=== PATIENT | male | born 1975 | race Caucasian/White ===

== ENCOUNTER 2024-06-04 17:43 | Inpatient (IN) | payer OTHER, SELFPAY ==
[2024-06-04] VITALS (7 sets, daily range): BP systolic 136–172; BP diastolic 78–98; PULSE 67–90; RESP 14–18; TEMP 36.3–36.5; O2SAT 97–98; BMI 30.4
--- NOTE | ~2024-06-04 | CT_ITS ---
EXAMINATION: CTA chest abdomen pelvis DATE: 06/04/2024 20:30 INDICATION: Rule out aortic dissection TECHNIQUE: Computed tomography angiography (CTA) of the chest was performed with 100 mL Omnipaque-350 intravenous contrast timed to evaluate the pulmonary arteries. Coronal maximum intensity projection 3D-reconstructions were created by the technologist. Automated exposure control and iterative reconst ruction technique were employed. Exam dose: 929.74 mGy-cm total exam DLP. COMPARISON: None. FINDINGS: The lungs are clear of infiltrate or consolidation. There is no thoracic or abdominal aortic aneurysm or dissection. No hilar or mediastinal mass lesion or lymphadenopathy. Normal heart size. No pericardial or pleural effusion. No hepatic, splenic, pancreatic, adrenal or renal space-occupying mass lesion. The gallbladder is unremarkable. No bile duct or pancreatic duct dilatation. No intraperitoneal or retroperitoneal or pelvic mass lesion or adenopathy or ascites. There is mild prostate enlargement. The urinary bladder is distended, without wall thickening or appa rent intraluminal mass lesion. No bowel obstruction or intraperitoneal free air. Normal appendix No bowel obstruction or intraperitoneal free air. Small bilateral fat-containing inguinal hernias. Small fat-containing umbilical hernia. Included skeletal structures are unremarkable. IMPRESSION: No thoracic or abdominal aortic aneurysm Reviewed, dictated and finalized at [facility]. Reviewed, dictated and finalized at location [facility]. NESS MACHINE OPERATOR
--- NOTE | ~2024-06-04 | XR_ITS ---
XR chest 2V DATE: 06/04/2024 18:29 INDICATION: Chest pain TECHNIQUE: AP and lateral views COMPARISON: None FINDINGS: Heart size appears within normal range. No hilar or mediastinal enlargement. No pulmonary infiltrate or consolidation, pleural effusion or pulmonary vascular congestion or pneumo thorax is detected. IMPRESSION: No active cardiopulmonary disease Reviewed, dictated and finalized at location [facility]. INAL JUDGE
--- NOTE | 2024-06-04 17:50 | ECG_ITS ---
Test Date: 2024-06-04 17:55:52 Measurements Intervals [place] Rate: 93 P: 34 [place]: 168 QRS: 19 QRSD: 94 T: 31 QT: 343 QTc: 427 Interpretive Statements SINUS RHYTHM POSSIBLE LEFT ATRIAL ENLARGEMENT INCOMPLETE RIGHT BUNDLE BRANCH BLOCK BASELINE ARTIFACT- I, III, AVR, AVL, AVF, V3, V6 BORDERLINE ECG No previous ECG available for comparison Electronically Signed On 06-04-2024 18:47:36 FOUNDRY TECHNICIAN by Isidoro Tracy D.O.
[2024-06-04 18:15] LABS: Basophils Absolute Auto 0.1 K/mm3 (0.0-0.1); Basophils Percent Auto 0.8 % (0.2-1.2); Eosinophils Absolute Auto 0.2 K/mm3 (0-0.3); Eosinophils Percent Auto 1.2 % (0-4.4); Hematocrit 49.7 % (42.0-52.0); Hemoglobin 17.6 g/dL (14.0-18.0); Immature Granulocyte Absolute 0.09 K/mm3 (0.00-0.031); Immature Granulocyte Percent A 0.6 % (0-0.5); Lymphocytes Absolute Auto 3.14 K/mm3 (0.9-3.2); Lymphocytes Percent Auto 20.1 % (18.3-44.2); Mean Corpuscular HGB Conc 35.4 g/dl (32-36); Mean Corpuscular Hemoglobin 31.7 pg (26-34); Mean Corpuscular Volume 89.4 fl (80-100); Mean Platelet Volume 9.3 fl (7.4-10.4); Monocytes Absolute Auto 1.3 K/mm3 (0.1-0.6); Monocytes Percent Auto 8.2 % (2.6-8.5); Neutrophils Absolute Auto 10.8 K/mm3 (1.3-6.7); Neutrophils Percent Auto 69.1 % (45.5-73.1); Platelet Count Result 341 k/mm3 (150-375); Red Blood Count 5.56 M/mm3 (4.6-6.20); Red Cell Distribution Width 12.8 % (11.5-14.5); White Blood Count 15.7 K/mm3 (4.5-10.0)
[2024-06-04 18:26] LABS: Alanine Aminotransferase 54 U/L (6-50); Albumin Level 4.8 g/dL (3.5-5.1); Alkaline Phosphatase 77 U/L (38-126); Anion Gap 12 mmol/L (4-12); Aspartate Amino Transferase 39 U/L (17-59); Bilirubin,Total 0.7 mg/dL (0.2-1.3); Blood Urea Nitrogen 14 mg/dL (9-20); Calcium 9.1 mg/dL (8.4-10.2); Carbon Dioxide 24 mmol/L (22-30); Chloride 100 mmol/L (98-107); Estimated Glomerular Filt Rate > 60; Glucose 136 mg/dL (65-110); INR 0.9; Lipase 73 U/L (23-300); Potassium 3.4 mmol/L (3.4-5.0); Prothrombin Time 12.6 Seconds (11.1-14.7); Sodium 136 mmol/L (137-145)
[2024-06-04 18:27] LABS: Partial Thromboplastin Time 27.7 Seconds (22.3-36.8)
[2024-06-04 18:41] LABS: Troponin I 0.129 ng/mL (0.000-0.034)
--- NOTE | 2024-06-04 19:16 | PC.NURSE ---
family member reports that patient passed out, RN went in with patient and patient is neurologically intact at this time.
[2024-06-04] MEDS: LACTATED RINGERS 1,000 ML 999 ML IV CONT (19:30)
[2024-06-04] MEDS: HYDROmorphone HCL INJ (*CRX) 1 MG/ML SYR IV PUSH (19:31)
[2024-06-04] MEDS: LORazepam INJ (*CRX) 2 MG/ML VIAL 0.5 MG IV PUSH (19:32)
--- NOTE | 2024-06-04 19:41 | ED_ITS ---
HPI - Chest Pain General Chief Complaint: Chest Pain Stated Complaint: cp Time Seen by Provider: 06/04/24 19:01 History of Present Illness HPI narrative: 49-year-old male with no pertinent past medical history presenting to the emergency department sudden-onset chest pain on the right side of his chest radiating towards His neck and now on the right side of his body. He states he has had are off pain like this over this past week but only lasting several minutes and resolving spontaneously. EMS was called to scene he was provided 324 mg of p.o. aspirin. He has had persistent pain since arrival. Endorses no shortness of breath, nausea, vomiting, back pain, abdominal pain, weakness but does endorse neuropathy in both his arms and legs. States he feels is also having concomitant panic attack. Does take Effexor for his anxiety. No other medications, no cardiac medications. Does not see a ballistics professor and does not endorse any cardiac history. no history of DVT or PE, no long travel, no recent illnesses or injuries. Related Data Home Medications Medication Instructions Recorded Confirmed venlafaxine 150 mg 300 mg PO DAILY 07/31/19 06/04/24 capsule,extended release 24 hr anastrozole 1 mg tablet 1 mg PO WEEKLY 06/04/24 06/04/24 aspirin 81 mg tablet 81 mg PO DAILY 06/04/24 06/04/24 cholecalciferol (vitamin D3) 125 125 mcg PO DAILY 06/04/24 06/04/24 mcg (5,000 unit) capsule vitamin B complex 1 tablet PO DAILY 06/04/24 06/04/24 Allergies Allergy/AdvReac Type Severity Reaction Status Date / Time No Known Allergies Allergy Verified 06/04/24 21:55 Review of Systems Review of Systems: As reviewed above in HPI [facility] Past Medical History Medical History (Updated 06/05/24 @ 08:08 by Hans Zarco MD) Cyst of brain Depression with anxiety Headache, migraine Insomnia Sexual dysfunction Surgical History Surgical History History of skin surgery radha removed chest area Family History Family History (Updated 06/04/24 @ 23:11 by Patricia Sheth RN) Mother Aneurysm Fibromyalgia Migraine Other Diabetes mellitus Family history of coronary artery disease Family history of malignant neoplasm Heart disease Hypertension Social History Social History Smoking packs per day: 0.5 Smoking cigarettes per day: 10.0 Years smoked: 20 Smoking pack-years: 10.00 Smoking status: Current every day smoker Alcohol intake: current Drinks per week: 42 Substance use type: does not use Do You Feel Safe in your Home?: Yes Lack of Transportation: No Lack of Food: Never True Current Housing: I Have Housing Concerned About Future Housing: No Difficulty Paying Gas/Electric Bills: No Difficulty Paying for Meds: No Currently Unemployed: No Education: Trade/Vocational Certificate Difficulty w/ Childcare or Family Care: No Spiritual care concerns: No Exam 2 Narrative: GENERAL: very uncomfortable appearing in acute distress, able answer my questions in full sentences, diaphoretic HEAD: [Normocephalic, atraumatic.] EYES: [PERRLA and EOMI.] ENT: Nares clear, no rhinorrhea or epistaxis. Mucous membranes moist. NECK: Supple. CHEST: [Clear to auscultation. No respiratory distress.] HEART: [Regular rate and rhythm]. No murmur heard. [Normal peripheral pulses.] ABDOMEN: [Soft, nondistended], [nontender], [No rigidity or guarding] EXTREMITIES: Normal range of motion. [No edema.] SKIN: Warm, dry, no rash. NEURO: [No focal deficits]. Alert and oriented [x3.] PSYCH: [Normal mood and affect.] Course Vital Signs Vital signs: Vital Signs Temperature 36.5 C 06/04/24 17:55 Pulse Rate 90 06/04/24 17:55 Respiratory Rate 14 06/04/24 17:55 Blood Pressure 172/98 H 06/04/24 17:55 Pulse Oximetry 98 06/04/24 17:55 Oxygen Delivery Room Air 06/04/24 17:55 Temperature 36.8 C 06/05/24 06:31 Pulse Rate 96 06/05/24 06:31 Respiratory Rate 18 06/05/24 06:31 Blood Pressure 159/83 H 06/05/24 06:31 Pulse Oximetry 99 06/05/24 06:31 Oxygen Delivery Room Air 06/04/24 17:55 MDM - Chest Pain MDM Narrative Medical decision making narrative: 49-year-old male presenting with right-sided chest pain radiating down the right side of his body. Started 1 hour prior to arrival to the emergency department. He is hypertensive in the 170s but has no history of hypertension. Is very uncomfortable appearing, diaphoretic and acute distress. He was provided aspirin in route by EMS without any relief of his symptoms. No shortness of breath, nausea, vomiting, headache, back pain, abdominal pain. He has no cardiac history, no risk factors for VTE or pulmonary embolism. No risk factors for pneumothorax or lung pathology such as COPD or asthma. Patient received workup prior to my initial evaluation the patient did have an EKG that shows a partial right bundle branch block but no STEMI. He did have a initial elevated troponin. Patient was provided Dilaudid and small dose of Ativan for anxiety as well as his significant amounts of pain. Cardiac workup was ordered including serial troponin, serial EKGs, chest x-ray as well as a CT angiography of his chest abdomen pelvis given degree of pain the patient is and with his minimal history raise suspicion for possible cardiac versus aortic pathology. CT angiography was obtained and I independently reviewed the images I do not appreciate any kind of dissection or aneurysmal formation. No apparent intrathoracic process to explain patient's chest pain aside from his likely source being cardiac in origin. Read by radiology shows no thoracic or abdo jose l aortic aneurysms or dissections, no abdominal process that would be consistent with patient's presentation, gallbladder is unremarkable, normal appendix, no bowel obstruction, no hernias. Patient was re-evaluated frequently and still had persistent pain. He was given initial round of Dilaudid which helped slightly and was given additional morphine at this time for longer-acting relief without any improvement. He was thus provided additional dilaudid with again some mild relief but still describing significant pain this chest. His initial troponin was elevated to 0.129 and a repeat that was significant elevated 1.960. Repeat EKGs were obtained which again do not demonstrate any kind of STEMI and very nonspecific ST segments without any appreciable depressions or inversions. I discussed the case with the hospitalist Dr. Salinas for admission purposes. Given the patient's elevated troponins will decided on getting the intensive care unit involved and Interventional Cardiology given his persistent chest pain and elevated troponin without EKG evidence of an acute occlusive event with potential for need to have urgent/emergent cardiac cath. I had a discussion with the on-call beater out leveling machine Dr. Caceres. We would over patient's imaging findings, rising troponins and active chest pain without any ECG evidence of an acute ischemic event is definitive. Recomm endations were to initiate and nitroglycerin infusion for the chest pain and to keep the systolic blood pressure 110. This was initiated and titrated by nursing staff at bedside. Patient had some improvement in his pain after Dilaudid and nitroglycerin infusions. After I discussed the rapidly rising troponins an ongoing chest discomfort with the ballistics professor decision was made to plan for catheterization procedure tomorrow morning unless he has persistent pain throughout the evening that is uncontrolled or any new occlusive event changes on his EKG. Discussions were had with the on-call stitch bonding machine drawer in Dr. Darden and after realizing the plan of care going forward with intact rather cardiology's plan of catheterization either tonight or tomorrow and the ongoing ischemic type chest pain that the patient is experiencing he was accepted to the ICU in accordance with plan of care of both the stitch bonding machine drawer in and the hospitalist. Patient was admitted to the ER without further incident. Differential Diagnosis Differential diagnosis: Likely pneumothorax, stable angina, unstable angina pectoris, atypical chest pain, st elevation myocardial infarction, chest pain, biliary colic and other Medical Records Data Attestation: I reviewed the patient's medical records. Lab Data Attestation: I reviewed the patient's lab results. 06/05/24 05:36 06/04/24 18:02 Labs: Lab Results 06/04/24 06/04/24 Range/Units 18:02 21:48 WBC 15.7 H (4.5-10.0) K/mm3 RBC 5.56 (4.6-6.20) M/mm3 Hgb 17.6 (14.0-18.0) g/dL Hct 49.7 (42.0-52.0) % MCV 89.4 (80-100) fl MCH 31.7 (26-34) pg MCHC 35.4 (32-36) g/dl RDW 12.8 (11.5-14.5) % Plt Count 341 (150-375) k/mm3 MPV 9.3 (7.4-10.4) fl Immature Gran % (Auto) 0.6 H (0-0.5) % Neut % (Auto) 69.1 (45.5-73.1) % Lymph % (Auto) 20.1 (18.3-44.2) % [place] % (Auto) 8.2 (2.6-8.5) % Eos % (Auto) 1.2 (0-4.4) % Baso % (Auto) 0.8 (0.2-1.2) % Lymph # (Auto) 3.14 (0.9-3.2) K/mm3 [place] # (Auto) 1.3 H (0.1-0.6) K/mm3 Eos # (Auto) 0.2 (0-0.3) K/mm3 Baso # (Auto) 0.1 (0.0-0.1) K/mm3 Abs Immat Gran (auto) 0.09 H (0.00-0.031) K/mm3 Absolute Neuts (auto) 10.8 H (1.3-6.7) K/mm3 Absolute Nucleated RBC 0.000 (0.0-0.012) K/mm3 Nucleated RBC % 0.0 (0.0-0.2) % PT 12.6 (11.1-14.7) Seconds INR 0.9 APTT 27.7 (22.3-36.8) Seconds Sodium 136 L (137-145) mmol/L Potassium 3.4 (3.4-5.0) mmol/L Chloride 100 (98-107) mmol/L Carbon Dioxide 24 (22-30) mmol/L Anion Gap 12 (4-12) mmol/L BUN 14 (9-20) mg/dL Creatinine 1.00 (0.7-1.3) mg/dL Estim Creat Clear Calc Not Reportable Estimated GFR > 60 (59 - ) Glucose 136 H (65-110) mg/dL Calcium 9.1 (8.4-10.2) mg/dL Total Bilirubin 0.7 (0.2-1.3) mg/dL AST 39 (17-59) U/L ALT 54 H (6-50) U/L Alkaline Phosphatase 77 (38-126) U/L Troponin I 0.129 H* 1.960 H* D (0.000-0.034) ng/mL Total Protein 8.0 (6.3-8.2) g/dL Albumin 4.8 (3.5-5.1) g/dL Lipase 73 (23-300) U/L Imaging Data Attestation: I personally reviewed and interpreted this imaging study as follows : My impression: Impressions Chest X-Ray 06/04/24 18:59 IMPRESSION: No active cardiopulmonary disease Chest/Abdomen/Pelvis CTA 06/04/24 20:42 IMPRESSION: No thoracic or abdominal aortic aneurysm ECG Data EKG #1: Attestation: I personally reviewed and interpreted this ECG as follows: ECG completion date: 06/04/24 ECG completion time: 17:55 Prior ECG tracings: not available for review Interpretation: normal sinus rhythm with QRS of 94, QTC of 427 milliseconds, OR interval 160 milliseconds. There are no ST segment elevations, depressions, incomplete right bundle branch block is noted, T-wave flattening in lead 3. No previous EKG for comparison purposes. EKG Interpretation: normal rate, sinus rhythm, no ectopy, non-specific ST changes, normal QRS, RBBB and normal QT Critical Care Time Critical Care Time Critical Care Time: Yes Total Critical Care Time: 120 Discharge Plan Discharge Clinical Impression: Acute coronary syndrome with high troponin, NSTEMI (non-ST elevated myocardial infarction), Chest pain at rest Patient Disposition: Still a Patient Condition: Critical Time of Disposition: 23:00
--- NOTE | 2024-06-04 19:46 | PC.NURSE ---
let record show, EKG was taken by prior shift and shown to .
--- NOTE | 2024-06-04 20:47 | PC.NURSE ---
patient has called out for pain mediations at this time. RN informed that pain medication was just prescribed.
--- NOTE | 2024-06-04 20:52 | PC.NURSE ---
informed MD about patients pain and nausea. MD is placing order for Morphine and Zofran at this time.
--- NOTE | 2024-06-04 21:02 | ECG_ITS ---
Test Date: 2024-06-04 21:52:04 Measurements Intervals [place] Rate: 66 P: 31 [place]: 158 QRS: 34 QRSD: 105 T: 48 QT: 382 QTc: 402 Interpretive Statements SINUS RHYTHM WITH SINUS ARRHYTHMIA INCOMPLETE RIGHT BUNDLE BRANCH BLOCK BORDERLINE ECG Compared to ECG 06/04/2024 17:55:52 No significant changes Electronically Signed On 06-05-2024 06:10:43 GENERAL LEDGER BOOKKEEPER by Isidoro Tracy D.O.
--- NOTE | 2024-06-04 21:12 | PC.NURSE ---
per MD, patient to received 4mg of Morphine, and 4mg of Zofran via PIV. RN override medication with the okay of Dr. Parrish
[2024-06-04] MEDS: MORPHINE SULFATE (*CRX) 4 MG/ML INJ (21:16)
[2024-06-04] MEDS: ONDANSETRON INJ 4 MG/2 ML VIAL (21:17)
--- NOTE | 2024-06-04 21:41 | P.HP_ITS ---
H&P: HPI History of Present Illness Date/Time: 06/04/24 21:41 Chief Complaint: chest pain Narrative: This is a 49-year-old male with past medical history significant for tobacco dependence, pulmonary hypertension, depression, anxiety. patient presents to the emergency room due to sudden onset of right-sided chest pain with radiation to the jaw and shoulder ipsilateral, patient denies feeling lightheaded rates the pain a 10/10 in intensity only relieved by pain medication. patient was started on nitroglycerin drip. 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 in emergency room preliminary workup has been significant for troponin of 0.129 and 1.960 x2 patient was ruled out for acute pulmonary embolism with a negative CT angiogram of the chest. patient has been admitted for further evaluation management and treatment. XR chest 2V DATE: 06/04/2024 18:29 INDICATION: Chest pain TECHNIQUE: AP and lateral views COMPARISON: None FINDINGS: Heart size appears within normal range. No hilar or mediastinal enlargement. No pulmonary infiltrate or consolidation, pleural effusion or pulmonary vascular congestion or pneumothorax is detected. IMPRESSION: No active cardiopulmonary disease EXAMINATION: CTA chest abdomen pelvis DATE: 06/04/2024 20:30 INDICATION: Rule out aortic dissection TECHNIQUE: Computed tomography angiography (CTA) of the chest was performed with 100 mL Omnipaque-350 intravenous contrast timed to evaluate the pulmonary arteries. Coronal maximum intensity projection 3D-reconstructions were created by the technologist. Automated exposure control and iterative reconstruction technique were employed. Exam dose: 929.74 mGy-cm total exam DLP. COMPARISON: None. FINDINGS: The lungs are clear of infiltrate or consolidation. There is no thoracic or abdominal aortic aneurysm or dissection. No hilar or mediastinal mass lesion or lymphadenopathy. Normal heart size. No pericardial or pleural effusion. No hepatic, splenic, pancreatic, adrenal or renal space-occupying mass lesion. The gallbladder is unremarkable. No bile duct or pancreatic duct dilatation. No intraperitoneal or retroperitoneal or pelvic mass lesion or adenopathy or ascites. There is mild prostate enlargement. The urinary bladder is distended, without wall thickening or apparent intraluminal mass lesion. No bowel obstruction or intraperitoneal free air. Normal appendix No bowel obstruction or intraperitoneal free air. Small bilateral fat-containing inguinal hernias. Small fat-containing umbilical hernia. Included skeletal structures are unremarkable. IMPRESSION: No thoracic or abdominal aortic aneurysm Review of Systems Review of Systems: Chest pain Constitutional: Constitutional: Denies chills and Denies fever(s) Eyes: Eyes: Denies change in vision ENT: Denies dysphagia, Denies dizziness, Denies facial pain and Denies clare nophagia Cardiovascular: Cardiovascular: Reports chest pain, Reports chest pain at rest, Denies lightheadedness, Reports radiating jaw, neck or arm pain and Denies palpitations Respiratory: Respiratory: Denies cough Gastrointestinal: Gastrointestinal: Denies nausea and Denies vomiting Genitourinary: Genitourinary: Denies dysuria Musculoskeletal: Musculoskeletal: Denies myalgias Integumentary/Breasts: Skin/Breast: Denies rash Neurologic: Denies focal weakness and Denies Sensory deficit (Neuro) Psychiatric: Psychiatric: Reports no additional psychiatric complaints and Reports as per HPI Endocrine: Endocrine: Denies heat intolerance, Denies polyphagia, Denies polydipsia and Denies palpitations Hematologic/Lymphatic: Hematologic/Lymphatic: Reports no additional hematologic/lymphatic complaints and Reports as per HPI [facility] Past Medical History Medical History (Updated 06/05/24 @ 00:53 by Hugo Salinas MD) Cyst of brain Depression with anxiety Headache, migraine Insomnia Sexual dysfunction Surgical History Surgical History History of skin surgery radha removed chest area Family History Family History (Updated 06/04/24 @ 23:11 by Patricia Sheth RN) Mother Aneurysm Fibromyalgia Migraine Other Diabetes mellitus Family history of coronary artery disease Family history of malignant neoplasm Heart disease Hypertension Social History Social History Smoking packs per day: 0.5 Smoking cigarettes per day: 10.0 Years smoked: 20 Smoking pack-years: 10.00 Smoking status: Current every day smoker Alcohol intake: current Drinks per week: 42 Substance use type: does not use Do You Feel Safe in your Home?: Yes Lack of Transportation: No Lack of Food: Never True Current Housing: I Have Housing Concerned About Future Housing: No Difficulty Paying Gas/Electric Bills: No Difficulty Paying for Meds: No Currently Unemployed: No Education: Trade/Vocational Certificate Difficulty w/ Childcare or Family Care: No Spiritual care concerns: No Meds Home Medications and Allergies Home Medications Medication Instructions Recorded Confirmed Type venlafaxine 150 mg 300 mg PO DAILY 07/31/19 06/04/24 History capsule,extended release 24 hr sildenafil (pulm.hypertension) 20 60 - 80 mg PO Q36H PRN sexual 08/25/19 06/04/24 Rx mg tablet activity #60 tabs anastrozole 1 mg tablet 1 mg PO WEEKLY 06/04/24 06/04/24 History aspirin 81 mg tablet 81 mg PO DAILY 06/04/24 06/04/24 History cholecalciferol (vitamin D3) 125 125 mcg PO DAILY 06/04/24 06/04/24 History mcg (5,000 unit) capsule vitamin B complex 1 tablet PO DAILY 06/04/24 06/04/24 History Allergies Allergy/AdvReac Type Severity Reaction Status Date / Time No Known Allergies Allergy Verified 06/04/24 21:55 Vital Signs Vital Signs - 24 hr 06/04/24 17:55 06/04/24 18:43 06/04/24 19:19 Temperature 97.7 F 97.4 F L Pulse Rate 90 70 90 Respiratory Rate 14 18 Blood Pressure 172/98 H 161/78 H Pulse Oximetry 98 97 Oxygen Delivery Room Air Exam Narrative: patient is laying in a stretcher Const: General: comfortable, well developed, alert, awake, average body habitus and other ( in pain) Nutritional Appearance: average body habitus Orientation/consciousness: patient oriented x3 HENMT: Head: normal to inspection, normocephalic and atraumatic Ears: he aring grossly normal bilaterally Face/Nose/Sinus: normal facial exam Face and sinus: normal facial exam Eyes: General: appearance normal, both eyes and all related structures Pupils: Equal, round and reactive pupils present EOM: EOMs intact bilaterally Neck: Neck: full ROM, no lymphadenopathy and no JVD Thyroid: thyroid normal Lymphatic: no lymphadenopathy noted Resp: Effort & Inspection: normal respiratory effort and able to speak in complete sentences Auscultation: clear to auscultation bilaterally Cardio: Jugular venous distension: no JVD Rate: regular rate Rhythm: regular rhythm Heart sounds: S1 normal heart sound present and S2 normal heart sound present GI: GI Palp: Yes Soft to palpation and Yes No hepatosplenomegaly present : General: Yes deferred Skin: Rashes: no rashes Wounds: no wounds Neuro: General: patient oriented x3 and CN's II-XI intact bilaterally Cranial nerves: Yes CN's II-XII intact bilaterally and Yes Equal, round and reactive pupils present Cognition (Neuro): normal cognition Speech: normal speech Gait exam (Neuro): Normal gait present Motor exam (neuro): 5/5 motor strength present throughout Extrem: General: normal to inspection, full ROM, no joint enlargement and no pedal edema H&P: Results Labs Labs: Short CBC 06/04/24 Range/Units 18:02 WBC 15.7 H (4.5-10.0) K/mm3 Hgb 17.6 (14.0-18.0) g/dL Hct 49.7 (42.0-52.0) % Plt Count 341 (150-375) k/mm3 BMP 06/04/24 18:02 Sodium 136 L Potassium 3.4 Chloride 100 Carbon Dioxide 24 BUN 14 Creatinine 1.00 Glucose 136 H Calcium 9.1 Cardiac Enzymes 06/04/24 Range/Units 18:02 Troponin I 0.129 H* (0.000-0.034) ng/mL Liver Function 06/04/24 Range/Units 18:02 Total Bilirubin 0.7 (0.2-1.3) mg/dL AST 39 (17-59) U/L ALT 54 H (6-50) U/L Alkaline Phosphatase 77 (38-126) U/L Albumin 4.8 (3.5-5.1) g/dL Assessment and Plan Assessment and plan (1) NSTEMI (non-ST elevated myocardial infarction): Code(s): I21.4 - Non-ST elevation (NSTEMI) myocardial infarction Status: Acute Assessment and Plan: admit to ICU patient on heparin drip left heart catheterization in a.m. interventional cardiology consult (2) Chest pain at rest: Code(s): R07.9 - Chest pain, unspecified Status: Acute Assessment and Plan: currently on nitroglycerin drip (3) Tobacco dependence: Code(s): F17.200 - Nicotine dependence, unspecified, uncomplicated Status: Acute Assessment and Plan: nicotine patch as needed (4) Depression with anxiety: Code(s): F41.8 - Other specified anxiety disorders Status: Acute Assessment and Plan: patient is on venlafaxine follow-up in outpatient setting (5) Pulmonary hypertension: Code(s): I27.20 - Pulmonary hypertension, unspecified Status: Acute Assessment and Plan: patient takes Viagra last Viagra was Wednesday or of last week more than 72 hours
[2024-06-04] MEDS: HYDROmorphone HCL INJ (*CRX) 1 MG/ML SYR 0.5 MG IV PUSH (21:49)
[2024-06-04] MEDS: [UNRECOGNIZED DRUG - REMARK] 1 EACH XX (21:53)
--- NOTE | 2024-06-04 22:26 | PC.NURSE ---
pharmacy called and verified patients height. This RN asked patient about height he informed that he is 5t 9in.
[2024-06-04] MEDS: NITROGLYCERIN/D5W 200 MCG/ML 50 MG/250 ML BTL IV CONT (22:39)
[2024-06-04] MEDS: HEPARIN SOD/D5W 100 UNITS/ML 25,000 UNITS/250 ML BAG 10 UNITS IV CONT (22:53)
[2024-06-04 22:56] LABS: Basophils Absolute Auto 0.1 K/mm3 (0.0-0.1); Basophils Percent Auto 0.5 % (0.2-1.2); Eosinophils Absolute Auto 0.2 K/mm3 (0-0.3); Eosinophils Percent Auto 1.1 % (0-4.4); Hematocrit 45.2 % (42.0-52.0); Immature Granulocyte Absolute 0.05 K/mm3 (0.00-0.031); Immature Granulocyte Percent A 0.3 % (0-0.5); Lymphocytes Absolute Auto 2.06 K/mm3 (0.9-3.2); Lymphocytes Percent Auto 14.1 % (18.3-44.2); Mean Corpuscular HGB Conc 35.4 g/dl (32-36); Mean Corpuscular Hemoglobin 31.7 pg (26-34); Mean Corpuscular Volume 89.5 fl (80-100); Mean Platelet Volume 9.2 fl (7.4-10.4); Monocytes Absolute Auto 1.2 K/mm3 (0.1-0.6); Monocytes Percent Auto 8.2 % (2.6-8.5); Neutrophils Percent Auto 75.8 % (45.5-73.1); Platelet Count Result 281 k/mm3 (150-375); Red Blood Count 5.05 M/mm3 (4.6-6.20); Red Cell Distribution Width 12.7 % (11.5-14.5); White Blood Count 14.6 K/mm3 (4.5-10.0)
[2024-06-04 23:07] LABS: Prothrombin Time 13.9 Seconds (11.1-14.7)
[2024-06-04 23:08] LABS: Partial Thromboplastin Time 26.9 Seconds (22.3-36.8)
--- NOTE | 2024-06-04 23:09 | PC.NURSE ---
Report received from JOHN Golden.
--- NOTE | 2024-06-04 23:20 | PC.NURSE ---
Admission report to JOHN Morrison. Patient states that he takes a testosterone injection twice a week, but was unsure of the type of testosterone, thus it was not included in the external medication list.
--- NOTE | 2024-06-04 23:25 | ADMGEN ---
This patient, Mika Villeda, was admitted to Intensive Care Unit-9on 06/04/24 at 2324. Patient/family oriented to hospital policies and general routines including ID bracelet, bed and alarms, visiting hours, pain management, procedures, bathroom and other care routines, personal items, smoking policy, room service/diet, and visiting hours. Information on how to activate the Rapid Response Team has been discussed. Patient/Family are encouraged to report perceived risks to care and to ask questions if they do not understand what they are told or what they should do.
[2024-06-05] VITALS (34 sets, daily range): BP systolic 129–173; BP diastolic 76–125; PULSE 50–105; RESP 13–22; TEMP 36.7–36.9; O2SAT 95–100
[2024-06-05] MEDS: fentaNYL CITRATE INJ (*CRX) 100 MCG/2 ML VIAL 50 MCG IV PUSH ×2 (00:01→04:53)
--- NOTE | 2024-06-05 00:02 | ECG_ITS ---
Test Date: 2024-06-05 08:27:08 Measurements Intervals Muse Rate: 64 P: 34 ME: 152 QRS: 57 QRSD: 102 T: 29 QT: 396 QTc: 410 Interpretive Statements SINUS RHYTHM WITH SINUS ARRHYTHMIA INCOMPLETE RIGHT BUNDLE BRANCH BLOCK BORDERLINE ECG Electronically Signed On 06-05-2024 08:30:09 SPONGE DIVER by Isidoro Tracy D.O. Compared to ECG 06/04/2024 21:52:04 No significant changes
[2024-06-05] MEDS: ACETAMINOPHEN 325 MG TABLET 650 MG PO ×3 (01:21→11:35)
[2024-06-05 05:49] LABS: Basophils Absolute Auto 0.1 K/mm3 (0.0-0.1); Basophils Percent Auto 0.4 % (0.2-1.2); Eosinophils Absolute Auto 0.2 K/mm3 (0-0.3); Eosinophils Percent Auto 1.2 % (0-4.4); Hematocrit 45.5 % (42.0-52.0); Hemoglobin 15.5 g/dL (14.0-18.0); Immature Granulocyte Absolute 0.07 K/mm3 (0.00-0.031); Immature Granulocyte Percent A 0.4 % (0-0.5); Lymphocytes Absolute Auto 3.35 K/mm3 (0.9-3.2); Lymphocytes Percent Auto 20.9 % (18.3-44.2); Mean Corpuscular HGB Conc 34.1 g/dl (32-36); Mean Corpuscular Hemoglobin 30.8 pg (26-34); Mean Corpuscular Volume 90.5 fl (80-100); Mean Platelet Volume 9.2 fl (7.4-10.4); Monocytes Absolute Auto 1.3 K/mm3 (0.1-0.6); Neutrophils Absolute Auto 11.1 K/mm3 (1.3-6.7); Neutrophils Percent Auto 69.1 % (45.5-73.1); Platelet Count Result 273 k/mm3 (150-375); Red Blood Count 5.03 M/mm3 (4.6-6.20); Red Cell Distribution Width 12.7 % (11.5-14.5)
--- NOTE | 2024-06-05 06:00 | ECHO_ITS ---
Patient Info Name: Mika Villeda Age: 49 years : 1975 Gender: Male Ht: 69 in Wt: 204 lbs BSA: 2.15 m2 HR: 96 bpm BP: 159 / 83 mmHg Technical Quality: Fair Exam Date: 06/05/2024 9:33 AM Exam Location: Echo Lab Patient Status: Inpatient Admit Date: 06/04/2024 Staff Ordering Physician: Hans Zarco MD Spd Tech: Juve Angel RDCS Attending Provider: Hugo Salinas MD Referring Physician: Carolee LIRIANO; Exam Type: CA echo doppler color flow Study Info Indications - CHEST PAIN Complete two-dimensional, color flow and Doppler transthoracic echocardiogram is performed. Summary 1. Complete two-dimensional, color flow and Doppler transthoracic echocardiogram is performed. 2. The left ventricular systolic function is mildly reduced without LVEF of 45-50%. 3. The inferolateral wall is hypokinetic. 4. The right ventricular systolic function is normal. 5. No significant valvular disease. 6. Right atrial pressure measured to be 15 mm Hg. Left Ventricle The left ventricular size and systolic function is normal. The left ventricular ejection fraction is visually estimated to be 45-50%. The left ventricular wall is mildly thickened. The inferolateral wall is hypokinetic. Right Ventricle The right ventricular size and systolic function is normal. Left Atria The left atrium is normal in size. Right Atria The right atrium is normal in size. Aortic Valve The aortic valve is trileaflet and opens well. There is no aortic regurgitation. Pulmonic Valve The pulmonic valve is normal. There is no color Doppler evidence of pulmonic valve regurgitation. Mitral Valve The mitral valve is normal. There is no mitral regurgitation. Tricuspid Valve The tricuspid valve is normal. There is no tricuspid regurgitation. Pericardium/Pleural Pericardium is normal in appearance with no evidence for significant pericardial effusion. Inferior Vena Cava Dilated inferior vena cava with <50% collapse upon inspiration consistent with significantly elevated right atrial pressure, 15 mmHg. Aorta The 8 aortic root at the level of the sinus of Valsalva measures 2.9 cm in diameter. Left Ventricular Outflow Tract Name Value Normal LVOT 2D LVOT Diameter 2.1 cm LVOT Doppler LVOT Peak Gradient 3 mmHg LVOT Mean Gradient 2 mmHg LVOT VTI 16 cm LVOT VTI/AV VTI Ratio 0.7 LVOT Stroke Volume 57 ml LVOT CO 9.8 l/min LVOT CI 4.7 l/min/m2 Pulmonic Valve Name Value Normal RVOT Doppler RVOT Peak Gradient 3 mmHg PV Doppler PV Peak Gradient 6 mmHg Mitral Valve Name Value Normal MV Doppler MV Decel [place] 557 cm/s2 MV PHT 43 ms MV Area (PHT) 5.1 cm2 4.0-5.0 MV Diastolic Function MV E Peak Velocity 84 cm/s MV A Peak Velocity 71 cm/s MV E/A 1.2 MV Decel Time 150 ms MV Annular TDI MV E/e' (Septal) 9.3 <=8.0 MV E/e' (Lateral) 7.5 <=8.0 MV E/e' (Average) 8.4 Tricuspid Valve Name Value Normal Estimated PAP/RSVP RA Pressure 15 mmHg <=5 Aorta Name Value Normal Ascending Aorta Ao Root Diameter (MM) 3.5 cm Ao Root Diam Index (MM) 1.6 cm/m2 Aortic Valve Name Value Normal AV Doppler AV Peak Velocity 119 cm/s AV Peak Gradient 6 mmHg AV Mean Gradient 3 mmHg AV VTI 23 cm AV Area (Cont Eq VTI) 2.4 cm2 >=3.0 AV Area (Cont Eq [place]) 2.4 cm2 AV Regurgitation 2D LVOT Area 3.5 cm2 Ventricles Name Value Normal LV Dimensions 2D/MM IVS Diastolic Thickness (2D) 1.3 cm 0.6-1.0 LVID Diastole (2D) 4.5 cm 4.2-5.8 LVIW Diastolic Thickness (2D) 1.0 cm 0.6-1.0 LVID Systole (2D) 2.9 cm 2.5-4.0 LVOT Diameter 2.1 cm LV Mass (2D Cubed) 188.00 g 88.00-224.00 LV Mass Index (2D Cubed) 88 g/m2 49-115 Relative Wall Thickness (2D) 0.45 LV Fractional Shortening/Ejection Fraction 2D/MM LV Fractional Shortening (2D) 34 % 25-43 LV EF (2D Te[place]ol[place]) 64 % 52-72 LV Diastolic Volume (4C MOD) 142 ml LV EF (4C MOD) 46 % LV Diastolic Volume (2C MOD) 108 ml LV EF (2C MOD) 50 % LV Diastolic Volume (BP MOD) 125 ml 62-150 LV Diastolic Volume Index (BP MOD) 58 ml/m2 34-74 LV Systolic Volume (BP MOD) 64 ml 21-61 LV Systolic Volume Index (BP MOD) 30 ml/m2 11-31 LV EF (BP MOD) 49 % 52-72 LV Diastolic Length (4C) 8.9 cm LV Systolic Length (4C) 7.7 cm LV Stroke Volume (4C MOD) 65 ml Atria Name Value Normal LA Dimensions LA Dimension (MM) 5.6 cm 3.0-4.1 LA Volume (4C A-L) 41 ml LA Volume (BP A-L) 46 ml RA Dimensions RA Area (4C) 12.0 cm2 <=18.0 Report Signatures
[2024-06-05 06:01] LABS: Cholesterol 288 mg/dL (0-200); HDL Direct 39 mg/dL; Triglycerides 240 mg/dL (<150)
[2024-06-05 06:09] LABS: Partial Thromboplastin Time 32.1 Seconds (22.3-36.8)
[2024-06-05 06:12] LABS: LDL Cholesterol Direct 205 mg/dL
[2024-06-05] MEDS: HEPARIN SODIUM 5,000 UNITS/ML VIAL 4000 UNITS IV PUSH ×2 (06:48→13:34)
[2024-06-05 07:01] LABS: MRSA (PCR) NOT DETECTED (NOT DETECTE)
[2024-06-05] MEDS: ONDANSETRON INJ 4 MG/2 ML VIAL IV PUSH (08:09)
[2024-06-05 08:30] LABS: Alanine Aminotransferase 57 U/L (6-50); Alkaline Phosphatase 70 U/L (38-126); Anion Gap 7 mmol/L (4-12); Aspartate Amino Transferase 177 U/L (17-59); Bilirubin,Total 0.7 mg/dL (0.2-1.3); Blood Urea Nitrogen 11 mg/dL (9-20); Calcium 8.5 mg/dL (8.4-10.2); Carbon Dioxide 24 mmol/L (22-30); Chloride 104 mmol/L (98-107); Estimated CRCL calculation 127 ml/min; Estimated Glomerular Filt Rate > 60; Glucose 113 mg/dL (65-110); Potassium 3.9 mmol/L (3.4-5.0); Sodium 135 mmol/L (137-145)
[2024-06-05] MEDS: ASPIRIN 325 MG ENTERIC TABLET PO (08:39)
[2024-06-05] MEDS: MORPHINE SULFATE (*CRX) 2 MG/ML INJ 4 MG IV PUSH ×2 (08:39→12:46)
[2024-06-05] MEDS: METOPROLOL TARTRATE 25 MG TABLET PO ×2 (08:40→20:30)
[2024-06-05] MEDS: ATORVASTATIN 40 MG TABLET 80 MG PO (08:40)
[2024-06-05] MEDS: THIAMINE HCL 200 MG/2 ML VIAL 100 MG IV PUSH (08:40)
[2024-06-05] MEDS: FOLIC ACID 1 MG/0.2 ML INJ IV PUSH (08:44)
[2024-06-05] MEDS: LACTATED RINGERS 1,000 ML 100 ML IV CONT (08:51)
[2024-06-05] MEDS: PERFLUTREN LIPID MICROSPHERES 1.5 ML VIAL DILUTED TO 10 ML TOTAL VOLUME IV PUSH (09:30)
[2024-06-05 09:38] LABS: Hemoglobin A1C 5.5 % (<5.7)
--- NOTE | 2024-06-05 10:08 | WPDCNINT ---
Assessment and Plan Assessment and plan (1) NSTEMI (non-ST elevated myocardial infarction): Code(s): I21.4 - Non-ST elevation (NSTEMI) myocardial infarction Status: Acute Assessment and Plan: Patient presented with chest pain EKG showed no ST elevation he had elevated troponin which have now increased to 5.8 this more CTA negative for dissection or pulmonary embolism Cardiology has been consulted and aware patient Continue heparin drip and nitroglycerin drip. Titrate nitroglycerin drip to help with chest pain P.r.n. morphine Started aspirin beta-robert and Lipitor Echo ordered and pending Telemetry monitoring Sports Medicine Coordinator notified of patient's ongoing chest pain this morning I anticipate patient will be taken to cardiac catheterization lab today (2) Tobacco dependence: Code(s): F17.200 - Nicotine dependence, unspecified, uncomplicated Status: Acute Assessment and Plan: Patient was counseled and encouraged to quit smoking (3) Alcohol abuse: Code(s): F10.10 - Alcohol abuse, uncomplicated Status: Acute Assessment and Plan: Patient was counseled encouraged to either quit or decrease alcohol intake Monitor for withdrawal Thiamine and folic acid (4) Hyperlipidemia: Code(s): E78.5 - Hyperlipidemia, unspecified Status: Acute Assessment and Plan: Lipitor initiated (5) Nausea: Code(s): R11.0 - Nausea Status: Acute Assessment and Plan: P.r.n. Zofran Plan DVT prophylaxis -heparin infusion Stress ulcer prophylaxis - Nutrition - npo Code Status - Full Code I spoke to patient and his family at bedside and answered all questions explained him that he had had an [place] and current treatment plan. Total Critical Care Time - 32 minutes Due to a high probability of clinically significant, life threatening deterioration, the patient required my highest level of preparedness to intervene emergently and I personally spent this critical care time directly and personally managing the patient. This critical care time included obtaining a history; examining the patient; pulse oximetry; ordering and review of studies; arranging urgent treatment with development of a management plan; evaluation of patient's response to treatment; frequent reassessment; and discussions with other providers. It was exclusive of separately billable procedures and treating other patients and teaching time. Please see Assessment and Plan section and the rest of the note for further information on patient assessment and treatment Customer Service Attendant Consult Note Consult date: 06/05/24 Reason for consult: Non STEMI HPI: Mika Villeda is a 49 year old male with no sent significant known past medical history presented to ER last night with chief complaint of chest pain. Patient states that he had a similar chest pain few days ago which resolved quickly but last night started having chest pain on the right side of the chest which radiated to his right neck and right shoulder. Pain was sharp 7/10. No nausea vomiting shortness of breath dizziness lightheadedness loss of consciousness or palpitation. When he arrived in the ER patient was still having chest pain. Workup in the ED showed elevated troponin. CTA negative for PE or dissection. His EKG did not show any ST segment elevation. Cardiology consulted patient was started on heparin infusion. Patient was later also started on nitroglycerin infusion. Patient was admitted to ICU This morning when I saw the patient patient states that he still having chest pain although it is better than before. He is currently on heparin drip and nitroglycerin at 30 make he rates pain 4 to 5/10 but he also states that he is having headaches since the nitroglycerin and drip was started. He also complains of nausea. No vomiting. All other systems were reviewed and were negative Review of Systems Review of Systems: All systems reviewed & are unremarkable except as noted in HPI and below (HPI) PMFSH Past Medical History Medical History Cyst of brain Depression with anxiety Headache, migraine Insomnia Sexual dysfunction Surgical History Surgical History History of skin surgery radha removed chest area Family History Family History Mother Aneurysm Fibromyalgia Migraine Other Diabetes mellitus Family history of coronary artery disease Family history of malignant neoplasm Heart disease Hypertension Social History Social History Smoking packs per day: 0.5 Smoking cigarettes per day: 10.0 Years smoked: 20 Smoking pack-years: 10.00 Smoking status: Current every day smoker Alcohol intake: current Drinks per week: 42 Substance use type: does not use Do You Feel Safe in your Home?: Yes Lack of Transportation: No Lack of Food: Never True Current Housing: I Have Housing Concerned About Future Housing: No Difficulty Paying Gas/Electric Bills: No Difficulty Paying for Meds: No Currently Unemployed: No Education: Trade/Vocational Certificate Difficulty w/ Childcare or Family Care: No Spiritual care concerns: No Meds Home Medications and Allergies Home Medications Medication Instructions Recorded Confirmed Type venlafaxine 150 mg 300 mg PO DAILY 07/31/19 06/04/24 History capsule,extended release 24 hr sildenafil (pulm.hypertension) 20 60 - 80 mg PO Q36H PRN sexual 08/25/19 06/04/24 Rx mg tablet activity #60 tabs anastrozole 1 mg tablet 1 mg PO WEEKLY 06/04/24 06/04/24 History aspirin 81 mg tablet 81 mg PO DAILY 06/04/24 06/04/24 History cholecalciferol (vitamin D3) 125 125 mcg PO DAILY 06/04/24 06/04/24 History mcg (5,000 unit) capsule vitamin B complex 1 tablet PO DAILY 06/04/24 06/04/24 History Allergies Allergy/AdvReac Type Severity Reaction Status Date / Time No Known Allergies Allergy Verified 06/04/24 21:55 Vital Signs Vital Signs - 24 hr 06/04/24 17:55 06/04/24 18:43 06/04/24 19:19 Temperature 36.5 C 36.3 C L Pulse Rate 90 70 90 Respiratory Rate 14 18 Blood Pressure 172/98 H 161/78 H Pulse Oximetry 98 97 Oxygen Delivery Room Air Oxygen Flow Rate 06/04/24 22:39 06/04/24 23:24 06/04/24 23:30 Temperature Pulse Rate 67 74 72 Respiratory Rate Blood Pressure 139/87 Pulse Oximetry Oxygen Delivery Oxygen Flow Rate 06/04/24 23:49 06/05/24 00:07 06/05/24 00:00 Temperature 36.8 C Pulse Rate 74 68 71 Respiratory Rate 18 Blood Pressure 136/78 129/84 129/84 Pulse Oximetry 97 Oxygen Delivery Oxygen Flow Rate 06/05/24 00:00 06/05/24 00:15 06/05/24 01:15 Temperature Pulse Rate 71 80 59 L Respiratory Rate Blood Pressure 134/90 146/83 H Pulse Oximetry Oxygen Delivery Oxygen Flow Rate 06/05/24 04:05 06/05/24 02:00 06/05/24 04:00 Temperature 36.8 C Pulse Rate 66 62 76 Respiratory Rate 13 Blood Pressure 132/79 Pulse Oximetry 96 Oxygen Delivery Oxygen Flow Rate 06/05/24 06:31 06/05/24 02:00 06/05/24 04:00 Temperature 36.8 C Pulse Rate 96 62 64 Respiratory Rate 18 Blood Pressure 159/83 H 154/84 H 142/82 H Pulse Oximetry 99 Oxygen Delivery Oxygen Flow Rate 06/05/24 06:00 06/05/24 00:00 06/05/24 04:00 Temperature Pulse Rate 50 L Respiratory Rate Blood Pressure 149/91 H Pulse Oximetry 99 Oxygen Delivery Room Air Nasal Cannula Oxygen Flow Rate 4 06/05/24 06:00 06/05/24 08:40 06/05/24 08:00 Temperature Pulse Rate 96 75 56 L Respiratory Rate Blood Pressure 144/87 H Pulse Oximetry Oxygen Delivery Oxygen Flow Rate 06/05/24 08:50 Temperature Pulse Rate 77 Respiratory Rate Blood Pressure 155/98 H Pulse Oximetry Oxygen Delivery Oxygen Flow Rate Exam Narrative: General: Pt is alert awake and in NAD Lungs/Chest: Trachea central Clear BS B/L, No crackles or wheezing. Cardiac: RRR. Normal S1 S2. No murmurs Circulation: Pedal pulses are intact and symmetrical. Abdomen: Normal bowel sounds.. Soft. NT. ND. Extremities: No clubbing, cyanosis or edema. Warm : [place] in place Neurologic: Follows commands. Moves all 4 extremities PERRL Skin: No Rash Results Labs 06/05/24 05:36 06/05/24 05:36 Labs: Impressions Chest X-Ray 06/04/24 18:59 IMPRESSION: No active cardiopulmonary disease Chest/Abdomen/Pelvis CTA 06/04/24 20:42 IMPRESSION: No thoracic or abdominal aortic aneurysm Short CBC 06/04/24 06/04/24 06/05/24 Range/Units 18:02 22:51 05:36 WBC 15.7 H 14.6 H 16.0 H (4.5-10.0) K/mm3 Hgb 17.6 16.0 15.5 (14.0-18.0) g/dL Hct 49.7 45.2 45.5 (42.0-52.0) % Plt Count 341 281 273 (150-375) k/mm3 BMP 06/04/24 06/05/24 18:02 05:36 Sodium 136 L 135 L Potassium 3.4 3.9 Chloride 100 104 Carbon Dioxide 24 24 BUN 14 11 Creatinine 1.00 0.70 Glucose 136 H 113 H Calcium 9.1 8.5 Cardiac Enzymes 06/04/24 06/04/24 06/05/24 Range/Units 18:02 21:48 00:23 Troponin I 0.129 H* 1.960 H* D 5.810 H* D (0.000-0.034) ng/mL Liver Function 06/04/24 06/05/24 Range/Units 18:02 05:36 Total Bilirubin 0.7 0.7 (0.2-1.3) mg/dL AST 39 177 H (17-59) U/L ALT 54 H 57 H (6-50) U/L Alkaline Phosphatase 77 70 (38-126) U/L Albumin 4.8 4.0 (3.5-5.1) g/dL ECG Interpretation: EKG done this morning reviewed by me shows sinus rhythm with incomplete right bundle-branch block. No ST elevation. Hospitalist MIPS Advance Care Plan I have confirmed that the patient's Advanced Care Plan is present, code status is documented, or surrogate decision maker is listed in patient medical record.: Yes Medication Reconciliation I have utilized all available resources to obtain, update and review the patients current medications (includes all prescriptions, OTC, herbals, cannabis, and nutritional supplements).: Yes
--- NOTE | 2024-06-05 10:14 | IVDEFINITY ---
Prior to administration of IV Definity the patient was educated on the risks and benefits of the imaging enhancing agent including potential adverse side effects. The patient verbalized understanding. Allergies were verified. No exclusion criteria were identified and at least one of the following inclusion criteria were met: 1) physician request, 2) patient technically difficult to image (per the [place] [employer] guidelines of two or more segments not discernable within the apical view), or 3) questionable left ventricular function. ?
--- NOTE | 2024-06-05 10:39 | PM.CNCAR ---
Assessment and Plan Assessment and plan (1) NSTEMI (non-ST elevated myocardial infarction): Code(s): I21.4 - Non-ST elevation (NSTEMI) myocardial infarction Status: Acute Plan 49-year-old man with tobacco dependence and pulmonary hypertension initially presented to hospital with chest discomfort Non ST elevation DC -continue heparin drip and nitroglycerin drip -continue aspirin 81 mg, atorvastatin 80 mg every evening, and Lopressor 25 mg p.o. b.i.d. -given persistent chest discomfort, recommended urgent cardiac catheterization -follow up on transthoracic echocardiogram History of Present Illness History of Present Illness Consult date/time: 06/05/24 10:39 Requesting physician: Hugo Salinas MD Reason For Visit: Chest pain, NSTEMI Narrative: 49-year-old man with tobacco dependence and pulmonary hypertension initially presented to hospital with chest discomfort for with radiation to jaw shoulders. This has been ongoing for 4 hours prior to presentation to the emergency room. He was driving and for his friend was driving home from [place] and once he reached home he immediately came to the hospital. He has noted is chest discomfort over the past 4 months now that is not associated with exertion. He had 1 associated episode of syncopal episode. He denies any orthopnea or lower extremity swelling. Other than these chest discomfort and syncopal episodes, he is physically active. His chest pain did improve with nitroglycerin drip however this is limited due to headaches. Review of Systems Constitutional: Constitutional: Reports as per HPI Cardiovascular: Cardiovascular: Reports as per HPI Respiratory: Respiratory: Reports as per HPI [facility] Past Medical History Medical History Cyst of brain Depression with anxiety Headache, migraine Insomnia Sexual dysfunction Surgical History Surgical History History of skin surgery radha removed chest area Family History Family History Mother Aneurysm Fibromyalgia Migraine Other Diabetes mellitus Family history of coronary artery disease Family history of malignant neoplasm Heart disease Hypertension Social History Social History Smoking packs per day: 0.5 Smoking cigarettes per day: 10.0 Years smoked: 20 Smoking pack-years: 10.00 Smoking status: Current every day smoker Alcohol intake: current Drinks per week: 42 Substance use type: does not use Do You Feel Safe in your Home?: Yes Lack of Transportation: No Lack of Food: Never True Current Housing: I Have Housing Concerned About Future Housing: No Difficulty Paying Gas/Electric Bills: No Difficulty Paying for Meds: No Currently Unemployed: No Education: Trade/Vocational Certificate Difficulty w/ Childcare or Family Care: No Spiritual care concerns: No Meds Home Medications and Allergies Home Medications Medication Instructions Recorded Confirmed Type venlafaxine 150 mg 300 mg PO DAILY 07/31/19 06/04/24 History capsule,extended release 24 hr sildenafil (pulm.hypertension) 20 60 - 80 mg PO Q36H PRN sexual 08/25/19 06/04/24 Rx mg tablet activity #60 tabs anastrozole 1 mg tablet 1 mg PO WEEKLY 06/04/24 06/04/24 History aspirin 81 mg tablet 81 mg PO DAILY 06/04/24 06/04/24 History cholecalciferol (vitamin D3) 125 125 mcg PO DAILY 06/04/24 06/04/24 History mcg (5,000 unit) capsule vitamin B complex 1 tablet PO DAILY 06/04/24 06/04/24 History Allergies Allergy/AdvReac Type Severity Reaction Status Date / Time No Known Allergies Allergy Verified 06/04/24 21:55 Vital Signs Vital Signs - 24 hr 06/04/24 17:55 06/04/24 18:43 06/04/24 19:19 Temperature 36.5 C 36.3 C L Pulse Rate 90 70 90 Respiratory Rate 14 18 Blood Pressure 172/98 H 161/78 H Pulse Oximetry 98 97 Oxygen Delivery Room Air Oxygen Flow Rate 06/04/24 22:39 06/04/24 23:24 06/04/24 23:30 Temperature Pulse Rate 67 74 72 Respiratory Rate Blood Pressure 139/87 Pulse Oximetry Oxygen Delivery Oxygen Flow Rate 06/04/24 23:49 06/05/24 00:07 06/05/24 00:00 Temperature 36.8 C Pulse Rate 74 68 71 Respiratory Rate 18 Blood Pressure 136/78 129/84 129/84 Pulse Oximetry 97 Oxygen Delivery Oxygen Flow Rate 06/05/24 00:00 06/05/24 00:15 06/05/24 01:15 Temperature Pulse Rate 71 80 59 L Respiratory Rate Blood Pressure 134/90 146/83 H Pulse Oximetry Oxygen Delivery Oxygen Flow Rate 06/05/24 04:05 06/05/24 02:00 06/05/24 04:00 Temperature 36.8 C Pulse Rate 66 62 76 Respiratory Rate 13 Blood Pressure 132/79 Pulse Oximetry 96 Oxygen Delivery Oxygen Flow Rate 06/05/24 06:31 06/05/24 02:00 06/05/24 04:00 Temperature 36.8 C Pulse Rate 96 62 64 Respiratory Rate 18 Blood Pressure 159/83 H 154/84 H 142/82 H Pulse Oximetry 99 Oxygen Delivery Oxygen Flow Rate 06/05/24 06:00 06/05/24 00:00 06/05/24 04:00 Temperature Pulse Rate 50 L Respiratory Rate Blood Pressure 149/91 H Pulse Oximetry 99 Oxygen Delivery Room Air Nasal Cannula Oxygen Flow Rate 4 06/05/24 06:00 06/05/24 08:40 06/05/24 08:00 Temperature Pulse Rate 96 75 56 L Respiratory Rate Blood Pressure 144/87 H Pulse Oximetry Oxygen Delivery Oxygen Flow Rate 06/05/24 08:50 06/05/24 08:00 06/05/24 10:00 Temperature Pulse Rate 77 55 L 64 Respiratory Rate 17 Blood Pressure 155/98 H 144/87 H 139/81 Pulse Oximetry 98 Oxygen Delivery Oxygen Flow Rate 06/05/24 10:20 06/05/24 10:00 06/05/24 08:00 Temperature Pulse Rate 79 64 52 L Respiratory Rate 13 Blood Pressure 134/90 139/81 Pulse Oximetry 100 Oxygen Delivery Oxygen Flow Rate 06/05/24 08:00 06/05/24 10:00 Temperature Pulse Rate 64 Respiratory Rate Blood Pressure Pulse Oximetry 100 Oxygen Delivery Nasal Cannula Oxygen Flow Rate 4 Exam Const: General: uncomfortable HENMT: Mouth: Yes moist mucous membranes Eyes: EOM: EOMs intact bilaterally Neck: Neck: no JVD Resp: Auscultation: clear to auscultation bilaterally Cardio: Rate: regular rate Rhythm: regular rhythm GI: GI Palp: Yes Soft to palpation Neuro: Speech: normal speech Extrem: General: no edema and no pedal edema Results Labs and Meds 06/05/24 05:36 06/05/24 05:36 Lab results: Cardiac Enzymes 06/04/24 06/04/24 06/05/24 Range/Units 18:02 21:48 00:23 AST 39 (17-59) U/L Troponin I 0.129 H* 1.960 H* D 5.810 H* D (0.000-0.034) ng/mL 06/05/24 Range/Units 05:36 AST 177 H (17-59) U/L Troponin I (0.000-0.034) ng/mL Coagulation 06/04/24 06/04/24 06/05/24 Range/Units 18:02 22:51 05:36 PT 12.6 13.9 (11.1-14.7) Seconds APTT 27.7 26.9 32.1 (22.3-36.8) Seconds Lipids 06/05/24 Range/Units 05:36 Triglycerides 240 H (<150) mg/dL Cholesterol 288 H (0-200) mg/dL CBC 06/04/24 06/04/24 06/05/24 Range/Units 18:02 22:51 05:36 WBC 15.7 H 14.6 H 16.0 H (4.5-10.0) K/mm3 RBC 5.56 5.05 5.03 (4.6-6.20) M/mm3 Hgb 17.6 16.0 15.5 (14.0-18.0) g/dL Hct 49.7 45.2 45.5 (42.0-52.0) % Plt Count 341 281 273 (150-375) k/mm3 Lymph # (Auto) 3.14 2.06 3.35 H (0.9-3.2) K/mm3 [place] # (Auto) 1.3 H 1.2 H 1.3 H (0.1-0.6) K/mm3 Eos # (Auto) 0.2 0.2 0.2 (0-0.3) K/mm3 Baso # (Auto) 0.1 0.1 0.1 (0.0-0.1) K/mm3 Comprehensive Metabolic Panel 06/04/24 06/05/24 Range/Units 18:02 05:36 Sodium 136 L 135 L (137-145) mmol/L Potassium 3.4 3.9 (3.4-5.0) mmol/L Chloride 100 104 (98-107) mmol/L Carbon Dioxide 24 24 (22-30) mmol/L BUN 14 11 (9-20) mg/dL Creatinine 1.00 0.70 (0.7-1.3) mg/dL Glucose 136 H 113 H (65-110) mg/dL Calcium 9.1 8.5 (8.4-10.2) mg/dL AST 39 177 H (17-59) U/L ALT 54 H 57 H (6-50) U/L Alkaline Phosphatase 77 70 (38-126) U/L Total Protein 8.0 7.0 (6.3-8.2) g/dL Albumin 4.8 4.0 (3.5-5.1) g/dL Intake and Output 06/04/24 06/05/24 06/05/24 23:59 07:59 15:59 Intake Total 1007.5 127.2 41.3 Balance 1007.5 127.2 41.3 Intake: IV 1007.5 127.2 41.3 Heparin Sod/D5w 100 Units/ml 25 5.2 74.7 ,000 units In 250 ml @ 1,000 UNITS/HR 10 mls/hr IV CONT . Q24H [facility] Rx#:[id number] Lactated Ringers 1,000 ml @ 999 1000 mls/hr IV CONT .Q1H1M STA Rx#: [id number] Nitroglycerin/D5w 200 Mcg/ml 50 2.3 52.5 41.3 mg In 250 ml @ 30 MCG/MIN 9 mls/hr IV CONT .Q24H [facility] Rx#: [id number] Oral 0 Patient Weight 06/05/24 23:59 Weight 92.9 kg
[2024-06-05] MEDS: HYDROcodone/acetaminophen (*CRX) 5-325 MG TABLET 1 TAB PO ×2 (13:34→18:20)
--- NOTE | 2024-06-05 14:08 | PCCPR ---
Addendum entered by José Crain 06/05/24 14:10: Patient was unavailable to talk- headed to high density press laborer. Left flyer for Cardiac Rehab with nurse Original Note: visited patient bedside to give Cardiac Rehab information
--- NOTE | 2024-06-05 14:47 | PC.NURSE ---
pt to optical lab technician via bed and optical lab technician monitor; nitro drip sent with patient still infusing, heparin drip held and IV fluids held.
[2024-06-05 16:17] LABS: Activated Clotting Time 297 SEC (74-137)
--- NOTE | 2024-06-05 16:26 | P.SEDATION_ITS ---
Moderate Sedation Note-Pt Data Patient Data Allergies Allergy/AdvReac Type Severity Reaction Status Date / Time No Known Allergies Allergy Verified 06/04/24 21:55 Home Medications Medication Instructions Recorded Confirmed Type venlafaxine 150 mg 300 mg PO DAILY 07/31/19 06/04/24 History capsule,extended release 24 hr sildenafil (pulm.hypertension) 20 60 - 80 mg PO Q36H PRN sexual 08/25/19 06/04/24 Rx mg tablet activity #60 tabs anastrozole 1 mg tablet 1 mg PO WEEKLY 06/04/24 06/04/24 History aspirin 81 mg tablet 81 mg PO DAILY 06/04/24 06/04/24 History cholecalciferol (vitamin D3) 125 125 mcg PO DAILY 06/04/24 06/04/24 History mcg (5,000 unit) capsule vitamin B complex 1 tablet PO DAILY 06/04/24 06/04/24 History Current Medications: Active Medications Acetaminophen (Acetaminophen 325 Mg Tablet) 650 mg PO Q4H PRN PRN Reason: Mild Pain (1-3) or Fever Last Admin: 06/05/24 11:35 Dose: 650 mg Hydrocodone Bitart/Acetaminophen (Hydrocodone/Acetaminophen (*Crx) 5-325 Mg Tablet) 1 tab PO Q4H PRN PRN Reason: Pain Rated 4-6 Last Admin: 06/05/24 13:34 Dose: 1 tab Aspirin (Aspirin 325 Mg Enteric Tablet) 325 mg PO QAM [facility] Last Admin: 06/05/24 08:39 Dose: 325 mg Atorvastatin Calcium (Atorvastatin 40 Mg Tablet) 80 mg PO DAILY [facility] Last Admin: 06/05/24 08:40 Dose: 80 mg Folic Acid (Folic Acid 1 Mg/0.2 Ml Inj) 1 mg IV PUSH QAM [facility] Last Admin: 06/05/24 08:44 Dose: 1 mg Heparin Sodium (Porcine) (Heparin Sodium 5,000 Units/Ml Vial) 4,000 units IV PUSH PRN PRN PRN Reason: aPTT less than 55 seconds Last Admin: 06/05/24 13:34 Dose: 4,000 units Heparin Sodium (Porcine) (Heparin Sodium 5,000 Units/Ml Vial) 3,000 units IV PUSH PRN PRN PRN Reason: aPTT 55 - 70 seconds Heparin Sodium/Dextrose (Heparin Sodium/D5w 100 Units/Ml) 25,000 units in 250 mls @ 0 mls/hr IV CONT .Q0M MACIE; Protocol Last Titration: 06/05/24 14:48 Dose: 0 units/hr, 0 mls/hr Nitroglycerin/Dextrose (Nitroglycerin In 5% Dextrose 50 Mg) 50 mg in 250 mls @ 15 mls/hr IV CONT .[id number] MACIE; Protocol Last Titration: 06/05/24 14:00 Dose: 50 mcg/min, 15 mls/hr Lactated Ringer's (Lr - Lactated Ringers Iv) 1,000 mls @ 100 mls/hr IV CONT .Q10H [facility] Stop: 06/06/24 08:14 Last Infusion: 06/05/24 14:48 Dose: 0 mls/hr Metoprolol Tartrate (Metoprolol Tartrate 25 Mg Tablet) 25 mg PO Q12HR [facility]IE Last Admin: 06/05/24 08:40 Dose: 25 mg Morphine Sulfate (Morphine Sulfate (*Crx) 2 Mg/Ml Inj) 4 mg IV PUSH Q4H PRN PRN Reason: Pain Rated 7-10 Last Admin: 06/05/24 12:46 Dose: 4 mg Ondansetron HCl (Ondansetron Inj 4 Mg/2 Ml Vial) 4 mg IV PUSH Q4H PRN PRN Reason: Nausea Last Admin: 06/05/24 08:09 Dose: 4 mg Thiamine HCl (Thiamine Hcl 200 Mg/2 Ml Vial) 100 mg IV PUSH QAM [facility] Last Admin: 06/05/24 08:40 Dose: 100 mg Sedation/Anesthesia: No previous sedation/anesthesia problems (including family history). [facility] Past Medical History Medical History Cyst of brain Depression with anxiety Headache, migraine Insomnia Sexual dysfunction Surgical History Surgical History History of skin surgery radha removed chest area Family History Family History Mother Aneurysm Fibromyalgia Migraine Other Diabetes mellitus Family history of coronary artery disease Family history of malignant neoplasm Heart disease Hypertension Social History Social History Smoking packs per day: 0.5 Smoking cigarettes per day: 10.0 Years smoked: 20 Smoking pack-years: 10.00 Smoking status: Current every day smoker Alcohol intake: current Drinks per week: 42 Substance use type: does not use Do You Feel Safe in your Home?: Yes Lack of Transportation: No Lack of Food: Never True Current Housing: I Have Housing Concerned About Future Housing: No Difficulty Paying Gas/Electric Bills: No Difficulty Paying for Meds: No Currently Unemployed: No Education: Trade/Vocational Certificate Difficulty w/ Childcare or Family Care: No Spiritual care concerns: No Mod Sed Physical Exam Physical Exam Pre Procedural Exam: Normal: Lungs, Heart Rate and Heart Rhythm Hours since solid foods: 12 Hours since liquid intake: 12 Mallampati Classification: class II Internal Medicine - PN: Obj Da Vital Signs Vital Signs: Vital Signs - 24 hr 06/04/24 17:55 06/04/24 18:43 06/04/24 19:19 Temperature 36.5 C 36.3 C L Pulse Rate 90 70 90 Respiratory Rate 14 18 Blood Pressure 172/98 H 161/78 H Pulse Oximetry 98 97 Oxygen Delivery Room Air Oxygen Flow Rate 06/04/24 22:39 06/04/24 23:24 06/04/24 23:30 Temperature Pulse Rate 67 74 72 Respiratory Rate Blood Pressure 139/87 Pulse Oximetry Oxygen Delivery Oxygen Flow Rate 06/04/24 23:49 06/05/24 00:07 06/05/24 00:00 Temperature 36.8 C Pulse Rate 74 68 71 Respiratory Rate 18 Blood Pressure 136/78 129/84 129/84 Pulse Oximetry 97 Oxygen Delivery Oxygen Flow Rate 06/05/24 00:00 06/05/24 00:15 06/05/24 01:15 Temperature Pulse Rate 71 80 59 L Respiratory Rate Blood Pressure 134/90 146/83 H Pulse Oximetry Oxygen Delivery Oxygen Flow Rate 06/05/24 04:05 06/05/24 02:00 06/05/24 04:00 Temperature 36.8 C Pulse Rate 66 62 76 Respiratory Rate 13 Blood Pressure 132/79 Pulse Oximetry 96 Oxygen Delivery Oxygen Flow Rate 06/05/24 06:31 06/05/24 02:00 06/05/24 04:00 Temperature 36.8 C Pulse Rate 96 62 64 Respiratory Rate 18 Blood Pressure 159/83 H 154/84 H 142/82 H Pulse Oximetry 99 Oxygen Delivery Oxygen Flow Rate 06/05/24 06:00 06/05/24 00:00 06/05/24 04:00 Temperature Pulse Rate 50 L Respiratory Rate Blood Pressure 149/91 H Pulse Oximetry 99 Oxygen Delivery Room Air Nasal Cannula Oxygen Flow Rate 4 06/05/24 06:00 06/05/24 08:40 06/05/24 08:00 Temperature Pulse Rate 96 75 56 L Respiratory Rate Blood Pressure 144/87 H Pulse Oximetry Oxygen Delivery Oxygen Flow Rate 06/05/24 08:50 06/05/24 08:00 06/05/24 10:00 Temperature Pulse Rate 77 55 L 64 Respiratory Rate 17 Blood Pressure 155/98 H 144/87 H 139/81 Pulse Oximetry 98 Oxygen Delivery Oxygen Flow Rate 06/05/24 10:20 06/05/24 10:00 06/05/24 08:00 Temperature Pulse Rate 79 64 52 L Respiratory Rate 13 Blood Pressure 134/90 139/81 Pulse Oximetry 100 Oxygen Delivery Oxygen Flow Rate 06/05/24 08:00 06/05/24 10:00 06/05/24 11:37 Temperature Pulse Rate 64 65 Respiratory Rate Blood Pressure 134/76 Pulse Oximetry 100 Oxygen Delivery Nasal Cannula Oxygen Flow Rate 4 06/05/24 12:00 06/05/24 12:00 06/05/24 12:00 Temperature Pulse Rate 66 76 Respiratory Rate Blood Pressure 132/84 Pulse Oximetry 98 Oxygen Delivery Nasal Cannula Oxygen Flow Rate 4 06/05/24 12:50 06/05/24 12:00 06/05/24 14:00 Temperature 36.9 C Pulse Rate 72 76 76 Respiratory Rate 20 Blood Pressure 139/79 132/84 139/95 H Pulse Oximetry 100 Oxygen Delivery Oxygen Flow Rate 06/05/24 14:00 06/05/24 14:00 Temperature Pulse Rate 76 78 Respiratory Rate 14 Blood Pressure 139/95 H Pulse Oximetry 99 Oxygen Delivery Oxygen Flow Rate Intake/Output Intake/Output: Intake & Output 06/02/24 06/03/24 06/04/24 06/05/24 23:59 23:59 23:59 23:59 Intake Total 1007.5 919.5 Output Total 1200 Balance 1007.5 -280.5 Meds/Results Medications: Active Medications Generic Name Dose Route Start Last Admin Trade Name Freq PRN Reason Stop Dose Admin Acetaminophen 650 mg 06/04/24 22:17 06/05/24 11:35 Acetaminophen 325 Mg Tablet PO 650 mg Q4H PRN Administration Mild Pain (1-3) or Fever Hydrocodone Bitart/Acetaminophen 1 tab 06/04/24 22:17 06/05/24 13:34 Hydrocodone/Acetaminophen (*Crx) 5-325 Mg Tablet PO 1 tab Q4H PRN Administration Pain Rated 4-6 Aspirin 325 mg 06/05/24 09:00 06/05/24 08:39 Aspirin 325 Mg Enteric Tablet PO 325 mg QAM [facility]IE Administration Atorvastatin Calcium 80 mg 06/05/24 09:00 06/05/24 08:40 Atorvastatin 40 Mg Tablet PO 80 mg DAILY MACIE Administration Folic Acid 1 mg 06/05/24 09:00 06/05/24 08:44 Folic Acid 1 Mg/0.2 Ml Inj IV PUSH 1 mg QAM [facility]IE Administration Heparin Sodium (Porcine) 4,000 units 06/04/24 21:37 06/05/24 13:34 Heparin Sodium 5,000 Units/Ml Vial IV PUSH 4,000 units PRN PRN Administration aPTT less than 55 seconds Heparin Sodium (Porcine) 3,000 units 06/04/24 21:37 Heparin Sodium 5,000 Units/Ml Vial IV PUSH PRN PRN aPTT 55 - 70 seconds Heparin Sodium/Dextrose 25,000 units in 250 mls @ 0 mls/hr 06/04/24 21:40 06/05/24 14:48 Heparin Sodium/D5w 100 Units/Ml IV CONT 0 units/hr .Q0M MACIE 0 mls/hr Titration Protocol Nitroglycerin/Dextrose 50 mg in 250 mls @ 15 mls/hr 06/04/24 22:30 06/05/24 14:00 Nitroglycerin In 5% Dextrose 50 Mg IV CONT 50 mcg/min .[id number] MACIE 15 mls/hr Titration Protocol 50 MCG/MIN Lactated Ringer's 1,000 mls @ 100 mls/hr 06/05/24 08:15 06/05/24 14:48 Lr - Lactated Ringers Iv IV CONT 06/06/24 08:14 0 mls/hr .Q10H [facility] Infusion Metoprolol Tartrate 25 mg 06/05/24 09:00 06/05/24 08:40 Metoprolol Tartrate 25 Mg Tablet PO 25 mg Q12HR [facility]IE Administration Morphine Sulfate 4 mg 06/05/24 08:17 06/05/24 12:46 Morphine Sulfate (*Crx) 2 Mg/Ml Inj IV PUSH 4 mg Q4H PRN Administration Pain Rated 7-10 Ondansetron HCl 4 mg 06/04/24 22:17 06/05/24 08:09 Ondansetron Inj 4 Mg/2 Ml Vial IV PUSH 4 mg Q4H PRN Administration Nausea Thiamine HCl 100 mg 06/05/24 09:00 06/05/24 08:40 Thiamine Hcl 200 Mg/2 Ml Vial IV PUSH 100 mg QAM [facility]IE Administration Radiology Results: ITS Impressions Chest X-Ray 06/04/24 18:59 IMPRESSION: No active cardiopulmonary disease Chest/Abdomen/Pelvis CTA 06/04/24 20:42 IMPRESSION: No thoracic or abdominal aortic aneurysm Labs 06/05/24 05:36 06/05/24 05:36 Labs: Laboratory Results - last 24 hr 06/04/24 06/04/24 06/04/24 18:02 21:48 22:51 WBC 15.7 H 14.6 H RBC 5.56 5.05 Hgb 17.6 16.0 Hct 49.7 45.2 MCV 89.4 89.5 MCH 31.7 31.7 MCHC 35.4 35.4 RDW 12.8 12.7 Plt Count 341 281 MPV 9.3 9.2 Immature Gran % (Auto) 0.6 H 0.3 Neut % (Auto) 69.1 75.8 H Lymph % (Auto) 20.1 14.1 L [place] % (Auto) 8.2 8.2 Eos % (Auto) 1.2 1.1 Baso % (Auto) 0.8 0.5 Lymph # (Auto) 3.14 2.06 [place] # (Auto) 1.3 H 1.2 H Eos # (Auto) 0.2 0.2 Baso # (Auto) 0.1 0.1 Abs Immat Gran (auto) 0.09 H 0.05 H Absolute Neuts (auto) 10.8 H 11.0 H Absolute Nucleated RBC 0.000 0.000 Nucleated RBC % 0.0 0.0 PT 12.6 13.9 INR 0.9 1.0 APTT 27.7 26.9 Activ Coag Time Kaolin Sodium 136 L Potassium 3.4 Chloride 100 Carbon Dioxide 24 Anion Gap 12 BUN 14 Creatinine 1.00 Estim Creat Clear Calc Not Reportable Estimated GFR > 60 Glucose 136 H Hemoglobin A1c Calcium 9.1 Magnesium Total Bilirubin 0.7 AST 39 ALT 54 H Alkaline Phosphatase 77 Troponin I 0.129 H* 1.960 H* D Total Protein 8.0 Albumin 4.8 Triglycerides Cholesterol LDL Cholesterol Direct HDL Direct Lipase 73 Nasal MRSA (PCR) 06/05/24 06/05/24 06/05/24 00:23 05:31 05:36 WBC 16.0 H RBC 5.03 Hgb 15.5 Hct 45.5 MCV 90.5 MCH 30.8 MCHC 34.1 RDW 12.7 Plt Count 273 MPV 9.2 Immature Gran % (Auto) 0.4 Neut % (Auto) 69.1 Lymph % (Auto) 20.9 [place] % (Auto) 8.0 Eos % (Auto) 1.2 Baso % (Auto) 0.4 Lymph # (Auto) 3.35 H [place] # (Auto) 1.3 H Eos # (Auto) 0.2 Baso # (Auto) 0.1 Abs Immat Gran (auto) 0.07 H Absolute Neuts (auto) 11.1 H Absolute Nucleated RBC 0.000 Nucleated RBC % 0.0 PT INR APTT 32.1 Activ Coag Time Kaolin Sodium 135 L Potassium 3.9 Chloride 104 Carbon Dioxide 24 Anion Gap 7 BUN 11 Creatinine 0.70 Estim Creat Clear Calc 127 Estimated GFR > 60 Glucose 113 H Hemoglobin A1c 5.5 Calcium 8.5 Magnesium 2.0 Total Bilirubin 0.7 AST 177 H ALT 57 H Alkaline Phosphatase 70 Troponin I 5.810 H* D Total Protein 7.0 Albumin 4.0 Triglycerides 240 H Cholesterol 288 H LDL Cholesterol Direct 205 HDL Direct 39 Lipase Nasal MRSA (PCR) Not detected 06/05/24 06/05/24 12:39 16:11 WBC RBC Hgb Hct MCV MCH MCHC RDW Plt Count MPV Immature Gran % (Auto) Neut % (Auto) Lymph % (Auto) [place] % (Auto) Eos % (Auto) Baso % (Auto) Lymph # (Auto) [place] # (Auto) Eos # (Auto) Baso # (Auto) Abs Immat Gran (auto) Absolute Neuts (auto) Absolute Nucleated RBC Nucleated RBC % PT INR APTT 44.0 H Activ Coag Time Kaolin 297 H Sodium Potassium Chloride Carbon Dioxide Anion Gap BUN Creatinine Estim Creat Clear Calc Estimated GFR Glucose Hemoglobin A1c Calcium Magnesium Total Bilirubin AST ALT Alkaline Phosphatase Troponin I Total Protein Albumin Triglycerides Cholesterol LDL Cholesterol Direct HDL Direct Lipase Nasal MRSA (PCR) ASA Classification/Sedation ASA Classification/Sedation ASA Class: III Emergent: No Risks: Risks, benefits and alternatives explained and patient/family accepted plan for sedation. Patient re-evaluated immediately prior to sedation.
--- NOTE | 2024-06-05 16:26 | P.PCNCC_ITS ---
Cardiac Cath Procedure Note Date of procedure:: 06/05/24 Performing physician:: CATHETERIZATION LABORATORY REPORT Procedure Date: 06/05/2024 Referring Physician: Dr. Darden Anesthesia: Versed and Fentanyl were ordered and given in my presence at 1513 procedure ended at 1620. Supervision of nurse monitored moderate sedation with 2mg Versed and 200mcg Fentanyl was provided for 67 minutes. Pre-op Diagnosis: NSTEMI Post-op Diagnosis: Posterior STEMI Procedure(s): Left heart catheterization with coronary angiography PCI Access Site: Right radial artery hemostasis with TR band Right SANITARY PLUMBER hemostasis with angioseal Brief History and Clinical Indications: All risks, benefits and alternatives to left heart catheterization with or without percutaneous coronary intervention was discussed at length with the p atient. Risk of complications including but not limited to bleeding, infection, arrhythmia, stroke, worsening kidney function, blood loss, groin hematoma, limb loss, emergency coronary artery bypass grafting, and even were discussed with the patient and all questions were answered. The patient understood and wished to proceed. Time out called, patient name, date of , medical record number, allergies, procedure performed, identify Bunch Breaker, patient and staff member concurred with accurate data, procedure carried on. Findings: LEFT HEART CATHETERIZATION FINDINGS: 1. Left main: The left main coronary artery is widely patent without any significant obstructive disease. 2. Left anterior descending: The LAD and the diagonal branches have mild luminal irregularities without any significant obstructive angiographic disease. 3. Left circumflex: The left circumflex artery is occluded in its proximal body. 4. Right coronary artery: The RCA is the dominant vessel. It has a 90% stenosis in its proximal body. 5. Left ventricle: A. End-diastolic pressure 35 mmHg at the end of the case. B. LV gram deferred. C. No significant gradient across aortic valve on catheter pullback. 6. Opening AO pressure 107/73 and closing AO pressure 117/76 Description of Procedure: Informed consent signed and placed in the chart. Patient transferred to school laboratory technician room. Prepped and draped in usual sterile fashion. 2% lidocaine injected subcutaneously in right wrist area. 22-gauge venipuncture catheter used to access the right radial artery with the Seldinger technique. 6-FR slender sheath placed in right radial artery. Nitroglycerin 200mcg, Verapamil 2.5mg, and Heparin 5000U was given intraarterial through the sheath. J wire advanced under fluoroscopy 5F JL3.5 diagnostic catheter engaged Left Main Coronary Artery. 5F JR4 diagnostic catheter engaged Right Coronary Artery Multiple orthogonal angiogram obtained and reviewed 5F Pigtail diagnostic catheter crossed aortic valve to obtain LVEDP, LV angiogram deferred. Procedure Description for PCI: A EBU 3.0 Guide catheter and multiple guide catheters was unable to engage the LMCA from the radial and thus, PCI was converted to right SANITARY PLUMBER approach. 2% lidocaine injected into the right groin area. A micro puncture kit was used to access the right common femoral artery under ultrasound guidance. A right iliofemoral angiogram was performed verifying good position at which time the 6 [place] sheath was inserted over the micropuncture wire. Heparin was used for anticoagulation (ACT maintained above 250) Patient loaded with heparin at 70 units/kg. 6F EBU 3.5guide catheter was used to intubate the LMCA. 0.014 Runthrough coronary wire was passed in to the Lcx. The lesion was pre-dilated with a 2.0mm x 15 mm balloon inflated to high RILEY. A 2.75mm x 18mm Tulia Cowley HEATHER was successfully deployed into left circumflex. An IVUS catheter was unable to cross into the left circumflex due to tortuosity and residual proximal left circumflex lesion. This lesion was treated with a 2.75mm x 8mm Tulia Cowley HEATHER overlapped with previously deployed stent with excellent angiographic results. Intracoronary NTG was administered Follow-up angiograms showed an excellent result. Coronary wire and guide-catheter were removed under fluoroscopy. Pre-procedure - DENITA 0flow Post-procedure - DENITA 3 flow No angiographic complications identified. Assessment: Successful PCI to the left circumflex with a 2.75 x 18mm Fran Cowley HEATHER overlapped proximally with a 2.75 x 8mm Tulia Cowley HEATHER with excellent angiographic result. Post Operative Condition: Stable No significant blood loss Disposition: Floor Plan: DAPT for 1 year followed by ASA indefinitely. Continue aggressive medical therapy and risk factor modification. Stage PCI to the proximal RCA outpatient if patient asymptomatic. Joao Curiel Interventional Cardiology
--- NOTE | 2024-06-05 16:50 | PC.NURSE ---
patient back from pathology laboratory technologist; TR band in place on right wrist, no bleeding, good pulse; right groin puncture site dry and intact, no hematoma or bleeding, good pedal pulse; nitro drip was turned off in pathology laboratory technologist, patient having 0/10 chest pain
[2024-06-05] MEDS: TICAGRELOR 90 MG TABLET PO (20:30)
[2024-06-06] VITALS (11 sets, daily range): BP systolic 119–158; BP diastolic 59–104; PULSE 64–100; RESP 14–20; TEMP 36.7; O2SAT 94–98
[2024-06-06 05:20] LABS: Hematocrit 48.9 % (42.0-52.0); Hemoglobin 16.7 g/dL (14.0-18.0); Mean Corpuscular HGB Conc 34.2 g/dl (32-36); Mean Corpuscular Hemoglobin 31.7 pg (26-34); Mean Corpuscular Volume 92.8 fl (80-100); Mean Platelet Volume 9.6 fl (7.4-10.4); Platelet Count Result 272 k/mm3 (150-375); Red Blood Count 5.27 M/mm3 (4.6-6.20); Red Cell Distribution Width 12.9 % (11.5-14.5); White Blood Count 15.5 K/mm3 (4.5-10.0)
[2024-06-06 05:33] LABS: Alanine Aminotransferase 75 U/L (6-50); Albumin Level 4.3 g/dL (3.5-5.1); Alkaline Phosphatase 65 U/L (38-126); Anion Gap 6 mmol/L (4-12); Aspartate Amino Transferase 176 U/L (17-59); Blood Urea Nitrogen 8 mg/dL (9-20); Carbon Dioxide 25 mmol/L (22-30); Chloride 103 mmol/L (98-107); Estimated CRCL calculation 100 ml/min; Estimated Glomerular Filt Rate > 60; Glucose 112 mg/dL (65-110); Magnesium 2.2 mg/dL (1.6-2.3); Sodium 134 mmol/L (137-145)
[2024-06-06] MEDS: ASPIRIN 81 MG ENTERIC TABLET PO (08:46)
[2024-06-06] MEDS: ATORVASTATIN 40 MG TABLET 80 MG PO (08:46)
[2024-06-06] MEDS: TICAGRELOR 90 MG TABLET PO (08:47)
[2024-06-06] MEDS: THIAMINE HCL 200 MG/2 ML VIAL 100 MG IV PUSH (08:47)
[2024-06-06] MEDS: FOLIC ACID 1 MG/0.2 ML INJ IV PUSH (08:47)
[2024-06-06] MEDS: METOPROLOL TARTRATE 50 MG TAB PO (08:47)
--- NOTE | 2024-06-06 08:49 | PM.DS ---
DS: Discharge Diagnosis Discharge Diagnosis (1) NSTEMI (non-ST elevated myocardial infarction): Code(s): I21.4 - Non-ST elevation (NSTEMI) myocardial infarction Status: Acute (2) Coronary artery disease: Code(s): I25.10 - Atherosclerotic heart disease of [place] coronary artery without angina pectoris Status: Acute (3) Hyperlipidemia: Code(s): E78.5 - Hyperlipidemia, unspecified Status: Acute (4) Tobacco dependence: Code(s): F17.200 - Nicotine dependence, unspecified, uncomplicated Status: Acute Plan 49-year-old man with tobacco dependence and pulmonary hypertension initially presented to hospital with chest discomfort Non ST elevation HI -continue heparin drip and nitroglycerin drip -continue aspirin 81 mg, atorvastatin 80 mg every evening, and Lopressor 25 mg p.o. b.i.d. -given persistent chest discomfort, recommended urgent cardiac catheterization -follow up on transthoracic echocardiogram DS: Summary Time Spent with Patient Time attestation: Total time spent providing and/or coordinating discharge services: Exam HENMT: Mouth: Yes moist mucous membranes Eyes: EOM: EOMs intact bilaterally Neck: Neck: no JVD Resp: Auscultation: clear to auscultation bilaterally Cardio: Rate: regular rate Rhythm: regular rhythm Neuro: Speech: normal speech Extrem: General: no edema and no pedal edema DS: Data Data Completed and Pending Labs on day of discharge: Labs from last 24 hours 06/06/24 06/05/24 06/05/24 04:51 16:11 12:39 WBC 15.5 H RBC 5.27 Hgb 16.7 Hct 48.9 MCV 92.8 MCH 31.7 MCHC 34.2 RDW 12.9 Plt Count 272 MPV 9.6 APTT 44.0 H Activ Coag Time Kaolin 297 H Sodium 134 L Potassium 4.0 Chloride 103 Carbon Dioxide 25 Anion Gap 6 BUN 8 L Creatinine 0.90 Estim Creat Clear Calc 100 Estimated GFR > 60 Glucose 112 H Hemoglobin A1c Calcium 9.0 Magnesium 2.2 Total Bilirubin 1.0 AST 176 H ALT 75 H Alkaline Phosphatase 65 Total Protein 8.0 Albumin 4.3 06/05/24 05:36 WBC RBC Hgb Hct MCV MCH MCHC RDW Plt Count MPV APTT Activ Coag Time Kaolin Sodium Potassium Chloride Carbon Dioxide Anion Gap BUN Creatinine Estim Creat Clear Calc Estimated GFR Glucose Hemoglobin A1c 5.5 Calcium Magnesium Total Bilirubin AST ALT Alkaline Phosphatase Total Protein Albumin Discharge Plan Discharge Consulting providers: Manjinder Terrell; Ezra Darden; Cande Caceres Discharge Instructions: [facility] [address] [place] [address] DISCHARGE INSTRUCTIONS - POST PCI Activity 1. No driving until 06/07/2024 2. No lifting, pushing or pulling more than 10 pounds for 1 week. 3. No strenuous exercise or activity (including sexual activity) until you are released to do so. 4. May shower but no tub baths or swimming pool for 1 week. Avoid hot tubs Medications DO NOT STOP YOUR MEDICATIONS ONLY YOUR LEARNING DISABILITIES SPECIALIST CAN STOP THE FOLLOWING MEDICATIONS - PLEASE CALL THE OFFICE WITH QUESTIONS. *Aspirin *Ticagrelor (Brilinta) *Atorvastatin *Losartan *Metoprolol Important Reminders 1. Keep your stent card in your wallet at all times 2. Follow a heart healthy diet paying extra attention to cholesterol and fats. 3. Stay hydrated. 4. If you have chest pain unrelieved by rest or nitroglycerin (if prescribed) call 911 immediately. 5. If you miss one dose of Brilinta (if prescribed) take a tablet at the next time due. If you miss 2 doses take a tablet when you remember and resume at the next time due. *For any other questions please call the office at [phone]. Office hours are 8AM 4:30PM Wednesday through Wednesday. [facility] [address] [facility] [address] [place] [address] DISCHARGE INSTRUCTIONS - POST RADIAL CATH Activity 1. No driving for 24 hours. 2. No lifting more than 5 lb with affected arm for 1 week. 3. May shower ( tomorrow) but no excessive soaking of affected hand/wrist (such as washing dishes), swimming pool or hot tub for 5 days. Wound Care 1. May remove gauze dressing in the morning and put Band-Aid over affected radial site. Keep site covered for 3 days. 2. Observe for redness, drainage, swelling or bleeding. Important Reminders 1. Keep your stent card in your wallet at all times 2. Follow a heart healthy diet paying extra attention to cholesterol and fats. 3. Stay hydrated. 4. If you have chest pain unrelieved by rest or nitroglycerin (if prescribed) call 911 immediately. 5. If you miss one dose of Brilinta (if prescribed) take a tablet at the next time due. If you miss 2 doses take a tablet when you remember and resume at the next time due. *For any other questions please call the office at [phone]. Office hours are 8AM 4:30PM Wednesday through Wednesday. Patient Instructions: Metoprolol (By mouth), Aspirin (By mouth), Atorvastatin (By mouth), Ticagrelor (By mouth), Heart Attack (GEN), How to Stop Smoking (DC), Heart Healthy Diet (GEN), Acute Coronary Syndrome (GEN) Discharge Medications: New Brilinta 90 mg Tablet 90 mg PO Q12HR 30 Days Qty: 60 11RF No Action venlafaxine 150 mg capsule,extended release 24hr 300 mg PO DAILY anastrozole 1 mg Tablet 1 mg PO WEEKLY Rx Instructions: administer on wednesday vitamin B complex Tablet 1 tablet PO DAILY aspirin 81 mg Tablet 81 mg PO DAILY cholecalciferol (vitamin D3) 125 mcg (5,000 unit) Capsule 125 mcg PO DAILY sildenafil (pulm.hypertension) 20 mg tablet 60 - 80 mg PO Q36H PRN (Reason: sexual activity) Qty: 60 0RF Rx Instructions: administer doses at least 4-6 hours apart Date of admission: 06/04/24 22:17 Primary Care Provider: PHYSICIAN,ASSOCIATE FINANCIAL ADVISOR Admitting Provider: Hugo Salinas V. Attending physician on admission: Hugo Salinas V. Condition: Critical
[2024-06-06] MEDS: VENLAFAXINE HCL XR 75 MG CAP.ER.24H 300 MG PO (10:06)
[2024-06-06] MEDS: LOSARTAN POTASSIUM 25 MG TABLET PO (10:06)
[2024-06-06] MEDS: ONDANSETRON INJ 4 MG/2 ML VIAL IV PUSH (11:53)
--- NOTE | 2024-06-06 12:21 | P.PNCA_ITS ---
Progress Note: A&P Assessment and Plan (1) Coronary artery disease: Code(s): I25.10 - Atherosclerotic heart disease of [place] coronary artery without angina pectoris Status: Acute Assessment and Plan: Presented with chest pain and NSTEMI, found to have coronary artery disease with 2 vessel CAD. He is now s/p PCI to the LCx/HEATHER x 2. Plan for staged PCI to RCA. * Continue DAPT with ASA indefinitely, Brilinta for at least 1 year. * Continue high intensity statin * Aggressive risk factor modification for CAD * Cardiac rehab * Smoking cessation * Mildly reduced LV systolic function, EF 45-50%. Add losartan (2) Hyperlipidemia: Code(s): E78.5 - Hyperlipidemia, unspecified Status: Acute Assessment and Plan: Continue statin (3) Tobacco dependence: Code(s): F17.200 - Nicotine dependence, unspecified, uncomplicated Status: Acute Assessment and Plan: States he plans to quit smoking but declines offer for assistance with nicotine patches, chantix, etc. Plan OK for discharge today from a cardiac standpoint. Subjective Date/time seen: 06/06/24 12:21 Interval history: Cardiology follow up for CAD, NSTEMI Patient feels well this morning. Denies any chest pain, shortness of breath, palpitations. He is eager to go home. Review of Systems Review of Systems: All systems reviewed & are unremarkable except as noted in HPI and below Exam Const: General: comfortable, no acute distress, alert and awake Orientation/consciousness: patient oriented x3 HENMT: Head: normal to inspection Eyes: General: appearance normal, both eyes and all related structures Pupils: Equal, round and reactive pupils present Neck: Neck: normal visual inspection, supple and no JVD Carotids: normal carotid upstroke Resp: Effort & Inspection: normal respiratory effort Auscultation: clear to auscultation bilaterally Cardio: Rate: regular rate Rhythm: regular rhythm Heart sounds: S1 normal heart sound present, S2 normal heart sound present and no murmurs GI: Auscultation: normal bowel sounds Skin: General skin exam: normal color Neuro: General: patient oriented x3 Cranial nerves: Yes Equal, round and reactive pupils present Extrem: General: normal to inspection Other: R radial arterial access site free from hematoma, bleeding, pain Psych: Appearance: grossly normal Mental Status: mental status grossly normal Objective Data Vital Signs Vital Signs: Vital Signs - 24 hr 06/05/24 12:50 06/05/24 14:00 06/05/24 14:00 Temperature Pulse Rate 72 76 76 Respiratory Rate Blood Pressure 139/79 139/95 H Pulse Oximetry Oxygen Delivery 06/05/24 14:00 06/05/24 16:51 06/05/24 17:06 Temperature Pulse Rate 78 77 70 Respiratory Rate 14 14 14 Blood Pressure 139/95 H 154/101 H 144/100 H Pulse Oximetry 99 96 95 Oxygen Delivery 06/05/24 17:21 06/05/24 17:00 06/05/24 17:36 Temperature Pulse Rate 75 77 Respiratory Rate 14 Blood Pressure 144/96 H Pulse Oximetry 96 Oxygen Delivery Room Air 06/05/24 18:00 06/05/24 18:06 06/05/24 18:36 Temperature Pulse Rate 89 89 95 Respiratory Rate 20 16 Blood Pressure 143/103 H 136/86 Pulse Oximetry 96 96 Oxygen Delivery 06/05/24 18:55 06/05/24 19:06 06/05/24 19:36 Temperature Pulse Rate 96 92 98 Respiratory Rate 18 14 21 H Blood Pressure 138/102 H 138/102 H 153/103 H Pulse Oximetry 97 96 97 Oxygen Delivery 06/05/24 20:00 06/05/24 20:30 06/05/24 20:00 Temperature 36.7 C Pulse Rate 94 97 Respiratory Rate 20 Blood Pressure 173/125 H Pulse Oximetry 98 Oxygen Delivery Room Air 06/05/24 20:00 06/05/24 21:00 06/05/24 22:00 Temperature Pulse Rate 105 H 87 87 Respiratory Rate 17 Blood Pressure 164/99 H Pulse Oximetry 97 Oxygen Delivery 06/05/24 22:00 06/05/24 23:00 06/06/24 00:00 Temperature Pulse Rate 87 85 Respiratory Rate 22 H 21 H Blood Pressure 164/102 H 155/109 H Pulse Oximetry 97 96 Oxygen Delivery Room Air 06/06/24 00:00 06/06/24 00:00 06/06/24 01:00 Temperature Pulse Rate 80 80 67 Respiratory Rate 17 17 Blood Pressure 120/92 H 158/59 H Pulse Oximetry 96 96 Oxygen Delivery 06/06/24 02:00 06/06/24 02:00 06/06/24 04:00 Temperature Pulse Rate 83 83 Respiratory Rate 19 Blood Pressure 144/90 H Pulse Oximetry 96 Oxygen Delivery Room Air 06/06/24 04:00 06/06/24 04:00 06/06/24 06:00 Temperature 36.7 C Pulse Rate 90 92 82 Respiratory Rate 14 Blood Pressure 136/89 Pulse Oximetry 98 Oxygen Delivery 06/06/24 06:00 06/05/24 19:00 06/06/24 08:00 Temperature 36.7 C Pulse Rate 82 76 92 Respiratory Rate 17 18 Blood Pressure 135/87 150/104 H Pulse Oximetry 96 95 Oxygen Delivery 06/06/24 08:47 06/06/24 09:08 06/06/24 08:00 Temperature Pulse Rate 100 Respiratory Rate Blood Pressure Pulse Oximetry 97 Oxygen Delivery Room Air Room Air 06/06/24 08:00 06/06/24 10:00 06/06/24 10:00 Temperature Pulse Rate 94 84 84 Respiratory Rate 16 Blood Pressure 131/90 Pulse Oximetry 97 Oxygen Delivery 06/06/24 11:41 Temperature Pulse Rate Respiratory Rate Blood Pressure Pulse Oximetry Oxygen Delivery Room Air Intake/Output Intake/Output: Intake & Output 06/03/24 06/04/24 06/05/24 06/06/24 23:59 23:59 23:59 23:59 Intake Total 1007.5 1639.5 600 Output Total 3050 1750 Balance 1007.5 -1410.5 -1150 Meds/Results Medications: Active Medications Generic Name Dose Route Start Last Admin Trade Name Freq PRN Reason Stop Dose Admin Acetaminophen 650 mg 06/04/24 22:17 06/05/24 11:35 Acetaminophen 325 Mg Tablet PO 650 mg Q4H PRN Administration Mild Pain (1-3) or Fever Hydrocodone Bitart/Acetaminophen 1 tab 06/04/24 22:17 06/05/24 18:20 Hydrocodone/Acetaminophen (*Crx) 5-325 Mg Tablet PO 1 tab Q4H PRN Administration Pain Rated 4-6 Aspirin 81 mg 06/06/24 09:00 06/06/24 08:46 Aspirin 81 Mg Enteric Tablet PO 81 mg QAM MACIE Administration Atorvastatin Calcium 80 mg 06/05/24 09:00 06/06/24 08:46 Atorvastatin 40 Mg Tablet PO 80 mg DAILY MACIE Administration Folic Acid 1 mg 06/05/24 09:00 06/06/24 08:47 Folic Acid 1 Mg/0.2 Ml Inj IV PUSH 1 mg QAM MACIE Administration Losartan Potassium 25 mg 06/06/24 09:40 06/06/24 10:06 Losartan Potassium 25 Mg Tablet PO 25 mg DAILY MACIE Administration Metoprolol Succinate 100 mg 06/07/24 09:00 Metoprolol Succinate Ext Rel 100 Mg Tabcr PO QAM MACIE Morphine Sulfate 4 mg 06/05/24 08:17 06/05/24 12:46 Morphine Sulfate (*Crx) 2 Mg/Ml Inj IV PUSH 4 mg Q4H PRN Administration Pain Rated 7-10 Ondansetron HCl 4 mg 06/04/24 22:17 06/06/24 11:53 Ondansetron Inj 4 Mg/2 Ml Vial IV PUSH 4 mg Q4H PRN Administration Nausea Thiamine HCl 100 mg 06/05/24 09:00 06/06/24 08:47 Thiamine Hcl 200 Mg/2 Ml Vial IV PUSH 100 mg QAM MACIE Administration Ticagrelor 90 mg 06/05/24 21:00 06/06/24 08:47 Ticagrelor 90 Mg Tablet PO 90 mg Q12HR MACIE Administration Venlafaxine HCl 300 mg 06/06/24 09:50 06/06/24 10:06 Venlafaxine Hcl Xr 75 Mg Cap.Er.24h PO 300 mg DAILY MACIE Administration Radiology Results: ITS Impressions Chest X-Ray 06/04/24 18:59 IMPRESSION: No active cardiopulmonary disease Chest/Abdomen/Pelvis CTA 06/04/24 20:42 IMPRESSION: No thoracic or abdominal aortic aneurysm Labs Labs: Laboratory Results - last 24 hr 06/05/24 06/05/24 06/06/24 12:39 16:11 04:51 WBC 15.5 H RBC 5.27 Hgb 16.7 Hct 48.9 MCV 92.8 MCH 31.7 MCHC 34.2 RDW 12.9 Plt Count 272 MPV 9.6 APTT 44.0 H Activ Coag Time Kaolin 297 H Sodium 134 L Potassium 4.0 Chloride 103 Carbon Dioxide 25 Anion Gap 6 BUN 8 L Creatinine 0.90 Estim Creat Clear Calc 100 Estimated GFR > 60 Glucose 112 H Calcium 9.0 Magnesium 2.2 Total Bilirubin 1.0 AST 176 H ALT 75 H Alkaline Phosphatase 65 Total Protein 8.0 Albumin 4.3
--- NOTE | 2024-06-06 12:23 | WPDINTPN ---
Progress Note: A&P Assessment and Plan (1) NSTEMI (non-ST elevated myocardial infarction): Code(s): I21.4 - Non-ST elevation (NSTEMI) myocardial infarction Status: Acute Assessment and Plan: 06/05: Patient presented with chest pain. EKG showed no ST elevation he had elevated troponin which have now increased to 5.8 this more -CTA negative for dissection or pulmonary embolism -06/05: status post PTCA/PCI with stent x2 to left circumflex in an overlapping fashion -patient is currently chest pain-free -continue aspirin, atorvastatin, losartan, beta-robert 06/05/2024: Summary 1. Complete two-dimensional, color flow and Doppler transthoracic echocardiogram is performed. 2. The left ventricular systolic function is mildly reduced without LVEF of 45-50%. 3. The inferolateral wall is hypokinetic. 4. The right ventricular systolic function is normal. 5. No significant valvular disease. 6. Right atrial pressure measured to be 15 mm Hg. (2) Tobacco dependence: Code(s): F17.200 - Nicotine dependence, unspecified, uncomplicated Status: Acute Assessment and Plan: Patient was counseled and encouraged to quit smoking (3) Alcohol abuse: Code(s): F10.10 - Alcohol abuse, uncomplicated Status: Acute Assessment and Plan: Patient was counseled encouraged to either quit or decrease alcohol intake Monitor for withdrawal Thiamine and folic acid (4) Hyperlipidemia: Code(s): E78.5 - Hyperlipidemia, unspecified Status: Acute Assessment and Plan: Continue atorvastatin (5) Nausea: Code(s): R11.0 - Nausea Status: Acute Assessment and Plan: Resolved P.r.nAlejandro Calderon Plan DVT prophylaxis -status post coronary angiogram Stress ulcer prophylaxis -not indicated Nutrition -heart healthy diet Code Status - Full Code Total Critical Care Time - 32 minutes Patient be transferred out of the ICU per cardiology Discussed with patient and his at bedside and updated them with patient's condition and plan of care. I did discuss regarding cessation of smoking and alcohol to which he said he may be able to decrease alcohol intake and will try and quit smoking. I reiterated that he needs to take all his medications for his heart regularly Due to a high probability of clinically significant, life threatening deterioration, the patient required my highest level of preparedness to intervene emergently and I personally spent this critical care time directly and personally managing the patient. This critical care time included obtaining a history; examining the patient; pulse oximetry; ordering and review of studies; arranging urgent treatment with development of a management plan; evaluation of patient's response to treatment; frequent reassessment; and discussions with other providers. It was exclusive of separately billable procedures and treating other patients and teaching time. Please see Assessment and Plan section and the rest of the note for further information on patient assessment and treatment This dictation may have been done utilizing a voice recognition system. Attempts have been made to correct errors. However, there may be uncorrected grammatical, spelling, and recognitions errors present. Subjective Date/time seen: 06/06/24 12:23 Interval history: Reason for consult: Chest pain, coronary artery disease, NSTEMI status post PTCA/PCI with stent x2 to left circumflex. Patient also has 90% stenosis in the proximal body of the RCA 06/06/2024: Patient seen and examined the ICU. Does not complain of any chest pain, shortness of breath, abdominal pain, nausea vomiting. He complains of chronic back pain. Urine output has been adequate, patient has been afebrile Review of Systems Review of Systems: All systems reviewed & are unremarkable except as noted in HPI and below (HPI) Exam Narrative: General: Pt is alert awake and in NAD Lungs/Chest: Trachea central Clear BS B/L, No crackles or wheezing. Cardiac: RRR. Normal S1 S2. No murmurs Circulation: Pedal pulses are intact and symmetrical. Abdomen: Normal bowel sounds.. Soft. NT. ND. Extremities: No clubbing, cyanosis or edema. Warm : [place] in place Neurologic: Follows commands. Moves all 4 extremities PERRL Skin: No Rash Objective Data Vital Signs Vital Signs: Vital Signs - 24 hr 06/05/24 12:50 06/05/24 14:00 06/05/24 14:00 Temperature Pulse Rate 72 76 76 Respiratory Rate Blood Pressure 139/79 139/95 H Pulse Oximetry Oxygen Delivery 06/05/24 14:00 06/05/24 16:51 06/05/24 17:06 Temperature Pulse Rate 78 77 70 Respiratory Rate 14 14 14 Blood Pressure 139/95 H 154/101 H 144/100 H Pulse Oximetry 99 96 95 Oxygen Delivery 06/05/24 17:21 06/05/24 17:00 06/05/24 17:36 Temperature Pulse Rate 75 77 Respiratory Rate 14 Blood Pressure 144/96 H Pulse Oximetry 96 Oxygen Delivery Room Air 06/05/24 18:00 06/05/24 18:06 06/05/24 18:36 Temperature Pulse Rate 89 89 95 Respiratory Rate 20 16 Blood Pressure 143/103 H 136/86 Pulse Oximetry 96 96 Oxygen Delivery 06/05/24 18:55 06/05/24 19:06 06/05/24 19:36 Temperature Pulse Rate 96 92 98 Respiratory Rate 18 14 21 H Blood Pressure 138/102 H 138/102 H 153/103 H Pulse Oximetry 97 96 97 Oxygen Delivery 06/05/24 20:00 06/05/24 20:30 06/05/24 20:00 Temperature 98.1 F Pulse Rate 94 97 Respiratory Rate 20 Blood Pressure 173/125 H Pulse Oximetry 98 Oxygen Delivery Room Air 06/05/24 20:00 06/05/24 21:00 06/05/24 22:00 Temperature Pulse Rate 105 H 87 87 Respiratory Rate 17 Blood Pressure 164/99 H Pulse Oximetry 97 Oxygen Delivery 06/05/24 22:00 06/05/24 23:00 06/06/24 00:00 Temperature Pulse Rate 87 85 Respiratory Rate 22 H 21 H Blood Pressure 164/102 H 155/109 H Pulse Oximetry 97 96 Oxygen Delivery Room Air 06/06/24 00:00 06/06/24 00:00 06/06/24 01:00 Temperature Pulse Rate 80 80 67 Respiratory Rate 17 17 Blood Pressure 120/92 H 158/59 H Pulse Oximetry 96 96 Oxygen Delivery 06/06/24 02:00 06/06/24 02:00 06/06/24 04:00 Temperature Pulse Rate 83 83 Respiratory Rate 19 Blood Pressure 144/90 H Pulse Oximetry 96 Oxygen Delivery Room Air 06/06/24 04:00 06/06/24 04:00 06/06/24 06:00 Temperature 98.1 F Pulse Rate 90 92 82 Respiratory Rate 14 Blood Pressure 136/89 Pulse Oximetry 98 Oxygen Delivery 06/06/24 06:00 06/05/24 19:00 06/06/24 08:00 Temperature 98.1 F Pulse Rate 82 76 92 Respiratory Rate 17 18 Blood Pressure 135/87 150/104 H Pulse Oximetry 96 95 Oxygen Delivery 06/06/24 08:47 06/06/24 09:08 06/06/24 08:00 Temperature Pulse Rate 100 Respiratory Rate Blood Pressure Pulse Oximetry 97 Oxygen Delivery Room Air Room Air 06/06/24 08:00 06/06/24 10:00 06/06/24 10:00 Temperature Pulse Rate 94 84 84 Respiratory Rate 16 Blood Pressure 131/90 Pulse Oximetry 97 Oxygen Delivery 06/06/24 11:41 Temperature Pulse Rate Respiratory Rate Blood Pressure Pulse Oximetry Oxygen Delivery Room Air Intake/Output Intake/Output: Intake & Output 06/03/24 06/04/24 06/05/24 06/06/24 23:59 23:59 23:59 23:59 Intake Total 1007.5 1639.5 600 Output Total 3050 1750 Balance 1007.5 -1410.5 -1150 Meds/Results Medications: Active Medications Generic Name Dose Route Start Last Admin Trade Name Freq PRN Reason Stop Dose Admin Acetaminophen 650 mg 06/04/24 22:17 06/05/24 11:35 Acetaminophen 325 Mg Tablet PO 650 mg Q4H PRN Administration Mild Pain (1-3) or Fever Hydrocodone Bitart/Acetaminophen 1 tab 06/04/24 22:17 06/05/24 18:20 Hydrocodone/Acetaminophen (*Crx) 5-325 Mg Tablet PO 1 tab Q4H PRN Administration Pain Rated 4-6 Aspirin 81 mg 06/06/24 09:00 06/06/24 08:46 Aspirin 81 Mg Enteric Tablet PO 81 mg QAM MACIE Administration Atorvastatin Calcium 80 mg 06/05/24 09:00 06/06/24 08:46 Atorvastatin 40 Mg Tablet PO 80 mg DAILY MACIE Administration Folic Acid 1 mg 06/05/24 09:00 06/06/24 08:47 Folic Acid 1 Mg/0.2 Ml Inj IV PUSH 1 mg QAM MCAIE Administration Losartan Potassium 25 mg 06/06/24 09:40 06/06/24 10:06 Losartan Potassium 25 Mg Tablet PO 25 mg DAILY MACIE Administration Metoprolol Succinate 100 mg 06/07/24 09:00 Metoprolol Succinate Ext Rel 100 Mg Tabcr PO QAM MACIE Morphine Sulfate 4 mg 06/05/24 08:17 06/05/24 12:46 Morphine Sulfate (*Crx) 2 Mg/Ml Inj IV PUSH 4 mg Q4H PRN Administration Pain Rated 7-10 Ondansetron HCl 4 mg 06/04/24 22:17 06/06/24 11:53 Ondansetron Inj 4 Mg/2 Ml Vial IV PUSH 4 mg Q4H PRN Administration Nausea Thiamine HCl 100 mg 06/05/24 09:00 06/06/24 08:47 Thiamine Hcl 200 Mg/2 Ml Vial IV PUSH 100 mg QAM MACIE Administration Ticagrelor 90 mg 06/05/24 21:00 06/06/24 08:47 Ticagrelor 90 Mg Tablet PO 90 mg Q12HR MACIE Administration Venlafaxine HCl 300 mg 06/06/24 09:50 06/06/24 10:06 Venlafaxine Hcl Xr 75 Mg Cap.Er.24h PO 300 mg DAILY MACIE Administration Radiology Results: ITS Impressions Chest X-Ray 06/04/24 18:59 IMPRESSION: No active cardiopulmonary disease Chest/Abdomen/Pelvis CTA 06/04/24 20:42 IMPRESSION: No thoracic or abdominal aortic aneurysm Labs Labs: Laboratory Results - last 24 hr 06/05/24 06/05/24 06/06/24 12:39 16:11 04:51 WBC 15.5 H RBC 5.27 Hgb 16.7 Hct 48.9 MCV 92.8 MCH 31.7 MCHC 34.2 RDW 12.9 Plt Count 272 MPV 9.6 APTT 44.0 H Activ Coag Time Kaolin 297 H Sodium 134 L Potassium 4.0 Chloride 103 Carbon Dioxide 25 Anion Gap 6 BUN 8 L Creatinine 0.90 Estim Creat Clear Calc 100 Estimated GFR > 60 Glucose 112 H Calcium 9.0 Magnesium 2.2 Total Bilirubin 1.0 AST 176 H ALT 75 H Alkaline Phosphatase 65 Total Protein 8.0 Albumin 4.3
--- NOTE | 2024-06-06 14:11 | P.DS_ITS ---
DS: Admitting Diagnosis Discharge Date 06/06/24 Admitting Diagnosis Chest pain DS: Discharge Diagnosis Discharge Diagnosis (1) NSTEMI (non-ST elevated myocardial infarction): Code(s): I21.4 - Non-ST elevation (NSTEMI) myocardial infarction Status: Acute (2) Coronary artery disease: Code(s): I25.10 - Atherosclerotic heart disease of [place] coronary artery without angina pectoris Status: Acute (3) Tobacco dependence: Code(s): F17.200 - Nicotine dependence, unspecified, uncomplicated Status: Acute (4) Alcohol abuse: Code(s): F10.10 - Alcohol abuse, uncomplicated Status: Acute (5) Hyperlipidemia: Code(s): E78.5 - Hyperlipidemia, unspecified Status: Acute (6) Nausea: Code(s): R11.0 - Nausea Status: Acute (7) Pulmonary hypertension: Code(s): I27.20 - Pulmonary hypertension, unspecified Status: Acute DS: Summary Hospital Course Reason for hospitalization: 49yo male here for chest pain. Please see H&P for details. Hospital Course: Patient presents with chest pain. Aspirin was given to him in the field by EMS. EKG showed no ST elevation but left atrial enlargement and incomplete right bundle branch block. Repeat EKG showed no significant change. Chest x-ray was clear. CTA of the chest, abdomen and pelvis showed no acute findings. He had elevated troponin to 5.8. Cardiology was consulted. Heparin drip was started. Patient underwent left heart catheterization. Left main was widely patent without any significant obstructive disease. The LAD and the diagonal branches have mild luminal irregularities without any significant obstructive disease. The left circumflex artery is occluded in its proximal body. The RCA is a dominant vessel with a 90% stenosis in its proximal body. Patient underwent successful PCI to the left circumflex with 2 overlapping drug-eluting stents placed. He was started on appropriate medical management. Echocardiogram showed LV systolic function reduced with EF of 45-50%, inferior lateral wall hypokinesis and normal right ventricular systolic function. No significant valvular disease. He was counseled on the benefits of abstaining from tobacco use as well as decreasing or quitting alcohol use. White blood cell count was mildly elevated but flat at 15K with normal differential probably stress response. TG 240, TC 288, LDL 205 and HDL 39. AST and ALT were elevated and flattened out probably from congestion. He had clinical improvement. He overall did well and was able be discharged home on 06/06. Status at Discharge Cognitive/behavioral status at discharge: stable Time Spent with Patient Time attestation: Total time spent providing and/or coordinating discharge services: 35 minutes Time spent: Greater than 30 minutes Exam Narrative: AF 98.1 119/78 71 18 94% ra Gen - NARD Chest - CTA bilaterally, nml RR CV - RRR S1/S2. Tele showing no signifincat dysrhythmias Abd - Soft, NT/ND, Positive BS Ext - No pedal edema. right femoral dressing clean, dry and intact without obvious hematoma Psych - Nml mood and affect Skin - Warm and dry DS: Data Data Completed and Pending Labs on day of discharge: Labs from last 24 hours 06/06/24 06/05/24 04:51 16:11 WBC 15.5 H RBC 5.27 Hgb 16.7 Hct 48.9 MCV 92.8 MCH 31.7 MCHC 34.2 RDW 12.9 Plt Count 272 MPV 9.6 Activ Coag Time Kaolin 297 H Sodium 134 L Potassium 4.0 Chloride 103 Carbon Dioxide 25 Anion Gap 6 BUN 8 L Creatinine 0.90 Estim Creat Clear Calc 100 Estimated GFR > 60 Glucose 112 H Calcium 9.0 Magnesium 2.2 Total Bilirubin 1.0 AST 176 H ALT 75 H Alkaline Phosphatase 65 Total Protein 8.0 Albumin 4.3 Discharge Plan Discharge Attending physician on discharge: Srinivas Ramos Consulting providers: Manjinder Terrell; Ezra Darden; Cande Caceres Discharging Clinician: Srinivas Ramos Anticipated Discharge Date/Time: 06/06/24 14:34 Patient Disposition: Home, Self-Care Activity: other - see discharge instructions Diet: heart healthy Discharge Instructions: [facility] [address] [place], [place] [id number] DISCHARGE INSTRUCTIONS - POST PCI Activity 1. No driving until 06/07/2024 2. No lifting, pushing or pulling more than 10 pounds for 1 week. 3. No strenuous exercise or activity (including sexual activity) until you are released to do so. 4. May shower but no tub baths or swimming pool for 1 week. Avoid hot tubs Medications DO NOT STOP YOUR MEDICATIONS ONLY YOUR TIRE VULCANIZER CAN STOP THE FOLLOWING MEDICATIONS - PLEASE CALL THE OFFICE WITH QUESTIONS. *Aspirin *Ticagrelor (Brilinta) *Atorvastatin *Losartan *Metoprolol Important Reminders 1. Keep your stent card in your wallet at all times 2. Follow a heart healthy diet paying extra attention to cholesterol and fats. 3. Stay hydrated. 4. If you have chest pain unrelieved by rest or nitroglycerin (if prescribed) call 911 immediately. 5. If you miss one dose of Brilinta (if prescribed) take a tablet at the next time due. If you miss 2 doses take a tablet when you remember and resume at the next time due. *For any other questions please call the office at [phone]. Office hours are 8AM 4:30PM Wednesday through Wednesday. [facility] [address] [place] [address] DISCHARGE INSTRUCTIONS - POST RADIAL CATH Activity 1. No driving for 24 hours. 2. No lifting more than 5 lb with affected arm for 1 week. 3. May shower ( tomorrow) but no excessive soaking of affected hand/wrist (such as washing dishes), swimming pool or hot tub for 5 days. Wound Care 1. May remove gauze dressing in the morning and put Band-Aid over affected radial site. Keep site covered for 3 days. 2. Observe for redness, drainage, swelling or bleeding. Important Reminders 1. Keep your stent card in your wallet at all times 2. Follow a heart healthy diet paying extra attention to cholesterol and fats. 3. Stay hydrated. 4. If you have chest pain unrelieved by rest or nitroglycerin (if prescribed) call 911 immediately. 5. If you miss one dose of Brilinta (if prescribed) take a tablet at the next time due. If you miss 2 doses take a tablet when you remember and resume at the next time due. *For any other questions please call the office at [phone]. Office hours are 8AM 4:30PM Wednesday through Wednesday. Follow-up with your primary care provider in 1-2 weeks. Please call for appointment. Please be aware that your medications have changed: Hold anastrozole and sildenafil Thank you for using [facility] for your health care needs. Patient Instructions: Antibiotic Form, Metoprolol (By mouth), Aspirin (By mouth), Atorvastatin (By mouth), Ticagrelor (By mouth), Heart Attack (GEN), How to Stop Smoking (DC), Heart Healthy Diet (GEN), Acute Coronary Syndrome (GEN) Stand Alone Forms: General Discharge Information Follow-up/Referrals: Emiliana Anderson APN-C [Advanced Practice Nurse] - Manjinder Terrell MD [Physician] - Call for Appointment Discharge Medications: New Brilinta 90 mg Tablet 90 mg PO Q12HR 30 Days Qty: 60 11RF atorvastatin 80 mg tablet 80 mg PO DAILY Qty: 30 1RF aspirin 81 mg Tablet,Delayed Release (Dr/Ec) 81 mg PO QAM Qty: 30 1RF losartan 25 mg Tablet 25 mg PO DAILY Qty: 30 1RF metoprolol succinate [Toprol XL] 100 mg Tablet Extended Release 24 Hr 100 mg PO QAM Qty: 30 1RF Continued venlafaxine 150 mg capsule,extended release 24hr 300 mg PO DAILY vitamin B complex Tablet 1 tablet PO DAILY cholecalciferol (vitamin D3) 125 mcg (5,000 unit) Capsule 125 mcg PO DAILY Held anastrozole 1 mg Tablet 1 mg PO WEEKLY Hold Instructions: HOLD - resume when okay with your doctor Rx Instructions: administer on wednesday sildenafil (pulm.hypertension) 20 mg tablet 60 - 80 mg PO Q36H PRN (Reason: sexual activity) Qty: 60 0RF Rx Instructions: administer doses at least 4-6 hours apart Discontinued aspirin 81 mg Tablet 81 mg PO DAILY Date of admission: 06/04/24 22:17 Primary Care Provider: PHYSICIAN,HYDRAULICS TEACHER Admitting Provider: Hugo Salinas V. Attending physician on admission: Hugo Salinas V. Condition: Stable Hospitalist MIPS Heart Failure (Exclusion) Patient has history of Heart Transplant or Left Ventricular Assistive Device?: No IF YES, STOP HERE Heart Failure (Qualifier) Patient has current or prior documentation of LVEF less than or equal to 40%, or mod/servere depressed LVSF?: No IF NO, STOP HERE
== END 2024-06-06 15:48 | disposition home or self-care (01) | DRG 322 ==
LOC: ANHED 19:25 → ANHICU 22:51
PROVIDERS: Emergency Medicine; Family Medicine; Internal Medicine; Admitting Provider Internal Medicine; Emergency Provider Student in an Organized Health Care Education/Training Program; Visit Provider Internal Medicine
PROC: 4A023N7 Measurement of Cardiac Sampling and Pressure, Left Heart, Percutaneous Approach (ICD-10-PCS; CPT 93452; principal; 2024-06-05 14:00)
PROC: 4A023N7 Measurement of Cardiac Sampling and Pressure, Left Heart, Percutaneous Approach (ICD-10-PCS; CPT 92928; 2024-06-05 14:00)
PROC: 4A023N7 Measurement of Cardiac Sampling and Pressure, Left Heart, Percutaneous Approach (ICD-10-PCS; CPT 36140; 2024-06-05 14:00)
PROC: 4A023N7 Measurement of Cardiac Sampling and Pressure, Left Heart, Percutaneous Approach (ICD-10-PCS; 2024-06-05 14:00)
DX: I21.4 Non-ST elevation (NSTEMI) myocardial infarction (principal); I25.10 Atherosclerotic heart disease of native coronary artery without angina pectoris; I27.20 Pulmonary hypertension, unspecified; E78.5 Hyperlipidemia, unspecified; F32.A Depression, unspecified; F41.9 Anxiety disorder, unspecified; F17.210 Nicotine dependence, cigarettes, uncomplicated; Z79.82 Long term (current) use of aspirin
CPT/HCPCS: 36140; 36415; 71046; 71275; 74174; 80053; 80061; 83036; 83690; 83735; 84484; 85025; 85027; 85610; 85730; 87641; 93005; 93306; 93458; 96361; 96374; 96375; 96376; 99291; A9270; C1725; C1760; C1769; C1874; C1887; C1894; C9600; G0269; J1171; J1644; J2003; J2060; J2250; J2270; J2305; J2405; J3010; J3411; J7040; J7120; Q9957; Q9967

== ENCOUNTER 2024-07-07 08:13 | Outpatient (CLI) | payer OTHER, SELFPAY ==
--- NOTE | ~2024-07-07 | MR_ITS ---
EXAMINATION: MR brain/brain stem wo/w con DATE: 07/07/2024 09:10 INDICATION: Vision loss of right eye. TECHNIQUE: Magnetic resonance imaging (MRI) of the brain and brainstem was performed without and with 18 mL MultiHance intravenous contrast. COMPARISON: Brain MRI 01/06/2010 FINDINGS: There is no intracranial hemorrhage, acute infarction, or abnormal intracranial mass lesion . There is a chronic 6.5 x 3.1 cm arachnoid cyst posterior to the cerebellum on the left. The ventric les are normal in size. The orbits are normal. There is mild mucosal thickening in the paranasal sinu ses. The mastoid air cells are normal. IMPRESSION: 1. No etiology for the patient's symptoms. Reviewed, dictated and finalized at location A. ASSOCIATE
== END 2024-07-07 08:14 | disposition home or self-care (01) ==
LOC: MICIMG 08:13
PROVIDERS: PCP Family Medicine; Visit Provider Internal Medicine
DX: H54.61 Unqualified visual loss, right eye, normal vision left eye (principal)
CPT/HCPCS: 70553; A9577

== ENCOUNTER 2024-07-31 00:56 | Day surgery (SDC) | payer OTHER, SELFPAY ==
[2024-07-28 12:29] VITALS: BMI 29.2
[2024-07-31] VITALS (9 sets, daily range): BP systolic 117–139; BP diastolic 73–88; PULSE 69–78; RESP 12–22; TEMP 36.7; O2SAT 97–100; BMI 31.2
[2024-07-31 09:05] LABS: Basophils Absolute Auto 0.1 K/mm3 (0.0-0.1); Eosinophils Absolute Auto 0.2 K/mm3 (0-0.3); Eosinophils Percent Auto 2.1 % (0-4.4); Hematocrit 49.2 % (42.0-52.0); Hemoglobin 16.7 g/dL (14.0-18.0); Immature Granulocyte Absolute 0.03 K/mm3 (0.00-0.031); Immature Granulocyte Percent A 0.3 % (0-0.5); Lymphocytes Absolute Auto 2.65 K/mm3 (0.9-3.2); Lymphocytes Percent Auto 30.8 % (18.3-44.2); Mean Corpuscular HGB Conc 33.9 g/dl (32-36); Mean Corpuscular Volume 91.3 fl (80-100); Mean Platelet Volume 8.9 fl (7.4-10.4); Monocytes Absolute Auto 0.8 K/mm3 (0.1-0.6); Monocytes Percent Auto 8.8 % (2.6-8.5); Neutrophils Absolute Auto 4.9 K/mm3 (1.3-6.7); Platelet Count Result 278 k/mm3 (150-375); Red Blood Count 5.39 M/mm3 (4.6-6.20); Red Cell Distribution Width 12.9 % (11.5-14.5); White Blood Count 8.6 K/mm3 (4.5-10.0)
[2024-07-31 09:15] LABS: Anion Gap 8 mmol/L (4-12); Blood Urea Nitrogen 10 mg/dL (9-20); Calcium 9.3 mg/dL (8.4-10.2); Carbon Dioxide 28 mmol/L (22-30); Chloride 102 mmol/L (98-107); Estimated CRCL calculation 94 ml/min; Estimated Glomerular Filt Rate > 60; Glucose 109 mg/dL (65-110); Sodium 138 mmol/L (137-145)
--- NOTE | 2024-07-31 10:26 | WPDMODSED ---
Moderate Sedation Note-Pt Data Patient Data Diagnosis: NSTEMI s/p PCI to LCX with HEATHER x 2 in 05/2024 Obstructive CAD with 90% stenosis in proximal RCA Cardiomyopathy with LVEF of 45% with hypokinesis of the inferolateral wall Angina on medical therapy Present Complaint: Chest pain with exertion Procedure to be performed/Plan: PCI to proximal RCA Allergies Allergy/AdvReac Type Severity Reaction Status Date / Time No Known Allergies Allergy Verified 07/31/24 08:45 Home Medications ?Medication ?Instructions ?Recorded ?Confirmed ?Type sildenafil (pulm.hypertension) 20 60 - 80 mg (3 - 4 x 20 mg) PO Q36H 08/25/19 07/28/24 Rx mg tablet PRN sexual activity #60 tabs cholecalciferol (vitamin D3) 125 125 mcg PO DAILY 06/04/24 07/28/24 History mcg (5,000 unit) capsule vitamin B complex 1 tablet PO DAILY 06/04/24 07/28/24 History aspirin 81 mg tablet,delayed 81 mg PO QAM #30 tabs 06/06/24 07/31/24 Rx release ticagrelor 90 mg tablet (Brilinta) 90 mg PO Q12HR 30 days #60 tabs 06/06/24 07/31/24 Rx anastrozole 1 mg tablet 1 mg PO WEEKLY #4 tabs 07/20/24 07/28/24 Rx atorvastatin 80 mg tablet 80 mg PO DAILY #90 tabs 07/20/24 07/28/24 Rx bupropion HCl 300 mg 24 hr tablet, 300 mg PO QAM #90 tabs 07/20/24 07/28/24 Rx extended release metoprolol succinate 25 mg 25 mg PO QAM 07/20/24 07/31/24 History tablet,extended release 24 hr testosterone cypionate 200 mg/mL 100 mg (0.5 mL) subcut .COMPLEX #8 07/21/24 07/28/24 Rx intramuscular oil mL (Depo-Testosterone) coenzyme Q10 100 mg capsule (Co 100 mg PO DAILY 07/28/24 07/28/24 History Q-10) ibuprofen 200 mg tablet (Advil) 800 mg PO TID 07/28/24 07/28/24 History Current Medications: Active Medications Sodium Chloride (Normal Saline Iv) 500 mls @ 100 mls/hr IV CONT .Q5H MACIE Sedation/Anesthesia: No previous sedation/anesthesia problems (including family history). [facility] Past Medical History Medical History Leukocytosis Insomnia Sexual dysfunction Depression with anxiety Cyst of brain Headache, migraine Surgical History Surgical History History of skin surgery radha removed chest area Family History Family History Mother Aneurysm Fibromyalgia Migraine Other Diabetes mellitus Family history of coronary artery disease Family history of malignant neoplasm Heart disease Hypertension Social History Social History Smoking packs per day: 0.5 Smoking cigarettes per day: 10.0 Years smoked: 20 Smoking pack-years: 10.00 Smoking status: Current every day smoker Tobacco type: cigarettes Alcohol intake: former Drinks per week: 42 Substance use: never Substance use type: does not use Do You Feel Safe in your Home?: Yes Lack of Transportation: No Lack of Food: Never True Current Housing: I Have Housing Concerned About Future Housing: No Difficulty Paying Gas/Electric Bills: No Difficulty Paying for Meds: No Currently Unemployed: No Education: Trade/Vocational Certificate Difficulty w/ Childcare or Family Care: No Spiritual care concerns: No Mod Sed Physical Exam Physical Exam Pre Procedural Exam: Normal: Lungs, Heart Size, Heart Rate and Heart Rhythm Hours since solid foods: 10 Hours since liquid intake: 10 Mallampati Classification: class II Internal Medicine - PN: Obj Da Vital Signs Vital Signs: Vital Signs - 24 hr 07/31/24 09:00 Temperature 36.7 C Pulse Rate 77 Respiratory Rate 18 Blood Pressure 131/87 Pulse Oximetry 100 Oxygen Delivery Room Air Meds/Results Medications: Active Medications Generic Name Dose Route Start Last Admin Trade Name Freq PRN Reason Stop Dose Admin Sodium Chloride 500 mls @ 100 mls/hr 07/31/24 08:30 Normal Saline Iv IV CONT .Q5H MACIE Labs 07/31/24 08:52 07/31/24 08:52 Labs: Laboratory Results - last 24 hr 07/31/24 08:52 WBC 8.6 RBC 5.39 Hgb 16.7 Hct 49.2 MCV 91.3 MCH 31.0 MCHC 33.9 RDW 12.9 Plt Count 278 MPV 8.9 Immature Gran % (Auto) 0.3 Neut % (Auto) 57.0 Lymph % (Auto) 30.8 [place] % (Auto) 8.8 H Eos % (Auto) 2.1 Baso % (Auto) 1.0 Lymph # (Auto) 2.65 [place] # (Auto) 0.8 H Eos # (Auto) 0.2 Baso # (Auto) 0.1 Abs Immat Gran (auto) 0.03 Absolute Neuts (auto) 4.9 Absolute Nucleated RBC 0.000 Nucleated RBC % 0.0 Sodium 138 Potassium 4.0 Chloride 102 Carbon Dioxide 28 Anion Gap 8 BUN 10 Creatinine 0.98 Estim Creat Clear Calc 94 Estimated GFR > 60 Glucose 109 Calcium 9.3 ASA Classification/Sedation ASA Classification/Sedation ASA Class: II Emergent: No Risks: Risks, benefits and alternatives explained and patient/family accepted plan for sedation. Patient re-evaluated immediately prior to sedation.
--- NOTE | 2024-07-31 10:31 | P.HP_ITS ---
H&P: [facility] History of Present Illness Date/Time: 07/31/24 10:31 Chief Complaint: Angina. Narrative: 49 y/o male with h/o NSTEMI s/p PCI to LCX with drug-eluting stent x2 in 05/2024, obstructive CAD with 80-90% stenosis of proximal RCA, hypertension, hyperlipidemia, cardiomyopathy with LV ejection fraction of 45% and regional wall motion abnormality, smoking history presents for staged PCI to proximal RCA. Patient has angina with exertion while on medical therapy. No shortness of breath, dizziness, lightheadedness, syncope, palpitations, leg swelling, recent weight gain. He is compliant with all his medications including aspirin and ticagrelor. Risks and benefits of the PCI procedure were explained to the patient and he is willing to proceed. Review of Systems Review of Systems: A complete review of systems was performed and negative other than those mentioned in the [facility] Past Medical History Medical History Leukocytosis Insomnia Sexual dysfunction Depression with anxiety Cyst of brain Headache, migraine Surgical History Surgical History History of skin surgery radha removed chest area Family History Family History Mother Aneurysm Fibromyalgia Migraine Other Diabetes mellitus Family history of coronary artery disease Family history of malignant neoplasm Heart disease Hypertension Social History Social History Smoking packs per day: 0.5 Smoking cigarettes per day: 10.0 Years smoked: 20 Smoking pack-years: 10.00 Smoking status: Current every day smoker Tobacco type: cigarettes Alcohol intake: former Drinks per week: 42 Substance use: never Substance use type: does not use Do You Feel Safe in your Home?: Yes Lack of Transportation: No Lack of Food: Never True Current Housing: I Have Housing Concerned About Future Housing: No Difficulty Paying Gas/Electric Bills: No Difficulty Paying for Meds: No Currently Unemployed: No Education: Trade/Vocational Certificate Difficulty w/ Childcare or Family Care: No Spiritual care concerns: No Meds Home Medications and Allergies Home Medications ?Medication ?Instructions ?Recorded ?Confirmed ?Type sildenafil (pulm.hypertension) 20 60 - 80 mg (3 - 4 x 20 mg) PO Q36H 08/25/19 07/28/24 Rx mg tablet PRN sexual activity #60 tabs cholecalciferol (vitamin D3) 125 125 mcg PO DAILY 06/04/24 07/28/24 History mcg (5,000 unit) capsule vitamin B complex 1 tablet PO DAILY 06/04/24 07/28/24 History aspirin 81 mg tablet,delayed 81 mg PO QAM #30 tabs 06/06/24 07/31/24 Rx release ticagrelor 90 mg tablet (Brilinta) 90 mg PO Q12HR 30 days #60 tabs 06/06/24 07/31/24 Rx anastrozole 1 mg tablet 1 mg PO WEEKLY #4 tabs 07/20/24 07/28/24 Rx atorvastatin 80 mg tablet 80 mg PO DAILY #90 tabs 07/20/24 07/28/24 Rx bupropion HCl 300 mg 24 hr tablet, 300 mg PO QAM #90 tabs 07/20/24 07/28/24 Rx extended release metoprolol succinate 25 mg 25 mg PO QAM 07/20/24 07/31/24 History tablet,extended release 24 hr testosterone cypionate 200 mg/mL 100 mg (0.5 mL) subcut .COMPLEX #8 07/21/24 07/28/24 Rx intramuscular oil mL (Depo-Testosterone) coenzyme Q10 100 mg capsule (Co 100 mg PO DAILY 07/28/24 07/28/24 History Q-10) ibuprofen 200 mg tablet (Advil) 800 mg PO TID 07/28/24 07/28/24 History Allergies Allergy/AdvReac Type Severity Reaction Status Date / Time No Known Allergies Allergy Verified 07/31/24 08:45 Vital Signs Vital Signs - 24 hr 07/31/24 09:00 Temperature 36.7 C Pulse Rate 77 Respiratory Rate 18 Blood Pressure 131/87 Pulse Oximetry 100 Oxygen Delivery Room Air Exam Narrative: General: Alert oriented x3, no acute distress Neck: Supple, JVD + Chest: Bilaterally clear to auscultation, no rales or rhonchi Cardiac: S1, S2 +, regular rate, regular rhythm, no murmurs or rubs Extremities: Bilateral lower extremity edema 1+, no skin rash Neurologic: Alert and oriented x3, no focal neurological deficits H&P: Results Labs Labs: Short CBC 07/31/24 Range/Units 08:52 WBC 8.6 (4.5-10.0) K/mm3 Hgb 16.7 (14.0-18.0) g/dL Hct 49.2 (42.0-52.0) % Plt Count 278 (150-375) k/mm3 BMP 07/31/24 08:52 Sodium 138 Potassium 4.0 Chloride 102 Carbon Dioxide 28 BUN 10 Creatinine 0.98 Glucose 109 Calcium 9.3 Assessment and Plan Assessment and plan (1) Coronary artery disease: Code(s): I25.10 - Atherosclerotic heart disease of [place] coronary artery without angina pectoris Status: Acute (2) Angina concurrent with and due to arteriosclerosis of coronary artery: Code(s): I25.119 - Atherosclerotic heart disease of [place] coronary artery with unspecified angina pectoris Status: Acute Plan 1. NSTEMI status post PCI to LCX in 05/2024 2. Obstructive CAD with 80-90% stenosis of proximal RCA 3. Angina with exertion while on medical therapy 4. Hypertension 5. Hyperlipidemia 6. Smoking history 7. Cardiomyopathy with LV ejection fraction of 45-50% and regional wall motion abnormality Plan: 1. Proceed with PCI to proximal RCA. Risks and benefits of the procedure were explained to the patient and he is willing to proceed 2. Continue dap therapy for 1 year post PCI (until 07/31/2025). Then can continue on single agent with aspirin 81 mg daily 3. Continue statin 4. Continue metoprolol
[2024-07-31 11:38] LABS: Activated Clotting Time 302 SEC (74-137)
[2024-07-31 11:38] LABS: Activated Clotting Time 141 SEC (74-137)
--- NOTE | 2024-07-31 12:24 | P.PCNCC_ITS ---
Cardiac Cath Procedure Note Date of procedure:: 07/31/24 Performing physician:: Amirah Dueñas MD Indication:: Angina with exertion Brief clinical history:: 49 y/o male with h/o NSTEMI s/p PCI to LCX with drug-eluting stent x2 in 05/2024, obstructive CAD with 80-90% stenosis of proximal RCA, hypertension, hyperlipidemia, cardiomyopathy with LV ejection fraction of 45% and regional wall motion abnormality, smoking history presents for staged PCI to proximal RCA. Patient has angina with exertion while on medical therapy. No shortness of breath, dizziness, lightheadedness, syncope, palpitations, leg swelling, recent weight gain. He is compliant with all his medications including aspirin and ticagrelor. All risks, benefits and alternatives to left heart catheterization with or without percutaneous coronary intervention was discussed at length with the patient. Risk of complications including but not limited to bleeding, infection, arrhythmia, stroke, worsening kidney function, blood loss, groin hematoma, limb loss, emergency coronary artery bypass grafting, and even were discussed with the patient and all questions were answered. The patient understood and wished to proceed. Time out called, patient name, date of , medical record number, allergies, procedure performed, identify [employer], patient and staff member concurred with accurate data, procedure carried on. Procedure Procedure performed:: Diagnostic left heart catheterization PCI to RCA Sedation/Medication given:: Versed 3 mg Fentanyl 200 mg Access site:: Right READING EFFICIENCY COURSE DIRECTOR hemostasis with angioseal Estimated blood loss:: 10 cc Procedure note:: Description of Procedure: Informed consent signed and placed in the chart. Patient transferred to lab technician room. Prepped and draped in usual sterile fashion. 2% lidocaine injected subcutaneously in right groin area. Ultrasound and fluoroscopy was used to access the right common femoral artery using micropuncture needle with the Seldinger technique. Fluoroscopy and right iliofemoral angiography was used to confirm the point of entry was above the bifurcation and below the inguinal artery at the level of the mid femoral head. 6 Khmer sheath was inserted over a micropuncture wire into the right common femoral artery. J wire advanced under fluoroscopy 5F JL 4 diagnostic catheter engaged Left Main Coronary Artery. 6F JR4 guide catheter was used to cross the aortic valve to obtain LVEDP and pullback gradient. Multiple orthogonal angiogram obtained and reviewed. Procedure Description for PCI: Heparin was used for anticoagulation (ACT maintained above 250) Patient loaded with heparin at 70 units/kg. Six Khmer JR4 guide was used to engage the right coronary artery. Heparin 12078 units were administered intravenously. ACT was subtherapeutic at 1:40 a.m.. Additional 5000 units of heparin were administered with an ACT of 300. 0.014 Runthrough coronary wire was passed in to the RCA. The lesion was pre-dilated with a 2.0mm x 20 mm noncompliant and 3 0 x 15 mm non compliant balloons inflated to high RILEY. An IVUS catheter was advanced into the RCA to evaluate vessel size, lesion morphology. Following predilatation of 3.5 x 38 mm Critz [place] HEATHER was deployed in the proximal to mid RCA from healthy to healthy segment with excellent angiographic results. Post dilation was performed with a 3.5 x 15 mm noncompliant balloon from distal to proximal RCA stent. IVUS catheter was used to confirm appropriate stent expansion. Intracoronary NTG was administered Follow-up angiograms showed an excellent result. Coronary wire and guide-catheter were removed under fluoroscopy. Pre-procedure - DENITA 3flow. Post-procedure - DENITA 3 flow. No angiographic complications identified. Findings:: LEFT HEART CATHETERIZATION FINDINGS: 1. Left main: The left main coronary artery is widely patent without any significant obstructive disease. 2. Left anterior descending: The LAD and the diagonal branches have mild luminal irregularities without any significant obstructive angiographic disease. 3. Left circumflex: The left circumflex artery stents are widely patent. 4. Right coronary artery: The RCA is the dominant vessel. It has a 80-90% stenosis in its proximal body. 5. Left ventricle: A. End-diastolic pressure 18 mmHg at the end of the case. B. LV gram deferred. C. No significant gradient across aortic valve on catheter pullback. 6. Opening AO pressure 102/71mm Hg and closing AO pressure 116/75mm Hg Conclusion:: Widely patent stent in the left circumflex artery Successful IVUS guided PCI to proximal RCA with 3.5 x 38 mm madhuri [place] HEATHER Assessment and Plan Assessment and plan (1) Coronary artery disease: Code(s): I25.10 - Atherosclerotic heart disease of [place] coronary artery without angina pectoris Status: Acute (2) Tobacco dependence: Code(s): F17.200 - Nicotine dependence, unspecified, uncomplicated Status: Acute (3) Angina concurrent with and due to arteriosclerosis of coronary artery: Code(s): I25.119 - Atherosclerotic heart disease of [place] coronary artery with unspecified angina pectoris Status: Acute Plan 49 y/o male with h/o NSTEMI s/p PCI to LCX with drug-eluting stent x2 in 05/2024, obstructive CAD with 80-90% stenosis of proximal RCA, hypertension, hyperlipidemia, cardiomyopathy with LV ejection fraction of 45% and regional wall motion abnormality, smoking history with 1. Status post successful IVUS guided PCI to 90% stenosis in the proximal RCA with 3.5 x 38 mm madhuri [place] HEATHER 2. Widely patent stents in left circumflex artery Plan: 1. Continue DAPT with aspirin and ticagrelor for 1 year post PCI. Then stop ticagrelor and continue aspirin 81 mg daily indefinitely 2. Continue statin 3. Continue metoprolol 4. Cardiac rehab at 1 month 5. Counseled about smoking cessation 6. Follow-up with cardiology in 1 month post PCI
[2024-07-31] MEDS: ACETAMINOPHEN 325 MG TABLET 650 MG PO (12:57)
[2024-07-31] MEDS: SODIUM CHLORIDE 0.9% IV 1,000 ML 125 ML IV CONT (12:58)
--- OUTSIDE RECORDS SUMMARY | 2024-08-03 11:10 | XMS_ITS | Encounter Summary ---
Author Organization [facility] Healthcare Address [facility] [place] [address] Care Team Providers Care Exhibit Technician Name Role Phone Buster Hylton MD Primary Care Provider [phone] Encounter Details Date Type Department Care Team (Late st Contact Info) Description 06/04/2024 Orders Only [facility] [place] [address] [place] [id number] Myles Mcghee MD [address] [address] Social History Tobacco Use Types Packs/Day Years Used Date Smoking Tobacco: Former Sex and Gender Information Value Date Recorded Sex Assigned at Not on file Legal Sex Male 3:03 AM CENTER DIRECTOR Gender Identity Not on file Sexual Orientation Not on file documented as of this encounter Plan of Treatment Not on file documented as of this encounter Procedures Procedure Name Priority Date/Time Associated Diagnosis Comments SCAN - RADIOLOGY/IMAGING 06/04/2024 documented in this encounter Results * SCAN - RADIOLOGY/IMAGING (06/04/2024) Anatomical Region Laterality Modality Other Myles Mcghee MD Final Result documented in this encounter Visit Diagnoses Not on filedocumented in this encounter Care Teams Exhibit Technician Relationship Specialty Start Date End Date Buster Hylton MD PCP - General 10/18/17 documented as of this encounter
--- OUTSIDE RECORDS SUMMARY | 2024-08-03 11:10 | XMS_ITS | Clinical Summary ---
Author Organization [facility] Address [facility] [place] [place] [address] [place] [address] Care Team Providers Care Independent Living Specialist Name Role Phone Unavailable Primary Care Provider Unavailabl e Social History Tobacco Use Types Packs/Day Years Used Date Smoking Tobacco: Never Assessed Sex and Gender Information Value Date Recorded Sex Assigned at Not on file Legal Sex Male 6:42 PM CDT Gender Identity Not on file Sexual Orientation Not on file Plan of Treatment Health Maintenance Due Date Last Done Comments Colorectal Cancer Screening Colonoscopy (10 Years) 1977 Annual Physical 1980 Hepatitis C 1995 DTaP, Tdap and Td Vaccines ( 1 - Tdap) 1996 Hepatitis B Vaccines (1 of 3 - 19+ 3-dose series) 1996 COVID-19 Vaccine (2023-2 5 season) 2024 Influenza Adult (#1) 2024 Meningococcal Vaccine Aged Out No davin loco eligible based on patient's age to complete this topic Pneumococcal Vaccine: Pediat rics (0 to 5 Years) and At-Risk Patients (6 to 64 Years) Aged Out No longer eligible b ased on patient's age to complete this topic RSV Immunizations Under 20 Months Aged Out No longer eligible based on patient's age to complete this topic
--- OUTSIDE RECORDS SUMMARY | 2024-08-03 11:10 | XMS_ITS | Referral Summary ---
Author Organization [place] [address] Address [address] [place] [address] Care Team Providers Care Brick Tosser Name Role Phone Buster Hylton MD Primary Care Provider [phone] Encounters Date Type Department Care Team Description 08/01/2024 Telephone [facility] Medical [facility] Cardiology [address] [facility] [address] [place] [address] Joao Curiel MD 07/26/2024 Telephone [facility] [address] [facility] [address] [place] [address] Joao Curiel MD 07/25/2024 8:45 AM INTERNSHIP Office Visit [facility] Medical [facility] Cardiology [address] [facility] [address] [place] [address] Jooa Curiel MD History of ST elevation myocardial infarction (STEMI) (Primary Dx) 07/24/2024 Telephone [facility] Medical [facility] Cardiology [address] [facility] [address] [place] [phone] Joao Curiel MD 07/20/2024 Telephone [facility] [address] [facility] [address] [place] [address] Joao Curiel MD 07/07/2024 Orders Only [facility] [address] [place] [address] Joao Curiel MD 07/06/2024 Telephone [facility] Medical [facility] Cardiology [address] [facility] [address] [place] [address] Joao Curiel MD 06/26/2024 Telephone [facility] [address] [facility] [address] [place] [phone] Joao Curiel MD Loss of Vision; Chest Pain 06/21/2024 Telephone [facility] [address] [place] [address] [place] [phone] Joao Curiel MD Med Management; questions about stents 06/20/2024 8:30 AM INTERNSHIP Office Visit [facility] [address] [place] [phone] Joao Curiel MD Vision loss of right eye (Primary Dx); Need for lipid screening 06/09/[address] [address] Joao Curiel MD Med Management 06/07/2024 Orders Only [address] [address] Joao Curiel MD 06/07/2024 Telephone [facility] [address] [place] [phone] Joao Curiel MD Fatigue; Difficulty Urinating; Shaking; Medication Reaction 06/04/2024 Orders Only [facility] [place] Information Management [address] [place] [id number] Myles Mcghee MD from Last 3 Months Medications ticagrelor (BRILINTA) 90 mg tablet Take 1 tablet (90 mg total) by mouth 2 (two) times a day Active atorvastatin (LIPITOR) 80 mg tablet Take 1 tablet (80 mg total) by mouth daily Active aspirin 81 mg enteric coated tablet Take 1 tablet (81 mg total) by mouth daily Active losartan (COZAAR) 25 mg tablet Take 1 tablet (25 mg total) by mouth daily Active cyanocobalamin (Vitamin B-12) 1,000 mcg tabletIndicatio ns:Prevention of Vitamin B12 Deficiency Take 1 tablet (1,000 mcg total) by mouth daily Active vitamin D3-vitamin K2 25 mcg (1,000 unit)-90 mcg tablet,disinteg rating Take by mouth Active buPROPion XL (WELLBUTRIN XL) 300 mg 24 hr tablet Take 1 tablet (300 mg total) by mouth daily Active omeprazole (PriLOSEC) 40 mg capsule Take 1 capsule (40 mg total) by mouth daily Active testosterone cypionate (DEPO-TESTOTERO NE) 100 mg/mL injection Inject into the muscle as instructed every 14 (fourteen) days Active metoprolol XL (TOPROL-XL) 25 mg extended release tabletIndicatio ns:Chest pain, unspecified type Take 1 tablet (25 mg total) by mouth daily 30 tablet 11 4 07/07/20 25 Active metoprolol XL (TOPROL-XL) 100 mg 24 hr tablet Take 1 tablet (100 mg total) by mouth daily 0.5 tablet daily 07/07/20 24 Discontin ued(Thera py completed ) Active Problems No known active problems Social History Tobacco Use Types Packs/Day Years Used Date Smoking Tobacco: Some Days Cigarettes Tobacco Cessation:Ready to Q uit: Not Asked; Counseling Given: Not Answered Sex and Gender Information Value Date Recorded Sex Assigned at Not on file Legal Sex Male 3:03 AM INTERNSHIP Gender Identity Not on file Sexual Orientation Not on file Last Filed Vital Signs Vital Sign Reading Time Taken Comments Blood Pressure 110/70 07/25/2024 9:01 AM INTERNSHIP Pulse 69 07/25/2024 9:01 AM INTERNSHIP Temperature - - Respiratory Rate - - Oxygen Saturation 98% 07/25/2024 9:01 AM INTERNSHIP Inhaled Oxygen Concentration - - Weight 93.4 kg (206 lb) 07/25/2024 9:01 AM INTERNSHIP Height 175.3 cm (5' 9 ) 07/25/2024 9:01 AM INTERNSHIP Body Mass Index 30.42 07/25/2024 9:01 AM INTERNSHIP Plan of Treatment Not on file Procedures Procedure Name Priority Date/Time Associated Diagnosis Comments SCAN - RADIOLOGY/IMAGING 07/07/2024 POCT LIPID PANEL Routine 06/20/2024 11:3 2 AM INTERNSHIP Need for lipid screening CARDIOLOGY DOCUMENT SCAN Routine 06/06/2024 1:46 PM INTERNSHIP CARDIOLOGY DOCUMENT SCAN Routine 06/05/2024 1:44 PM INTERNSHIP CARDIOLOGY DOCUMENT SCAN Routine 06/05/2024 1:31 PM INTERNSHIP SCAN - RADIOLOGY/IMAGING 06/04/2024 from Last 3 Months Results * SCAN - RADIOLOGY/IMAGING (07/07/2024) Anatomical Region Laterality Modality Other Result Frederick Curiel MD Final Result * POCT lipid panel (06/20/2024 11:32 AM INTERNSHIP) Cholesterol, POC 167 mg/dL Comment:GLU = 126 HDL, POC 20 mg/dL Triglycerides, POC 209 mg/dL LDL Cholesterol POC 105 mg/dL Chol/HDL Ratio, POC 5.3 Non-HDL Cholesterol, POC 147 mg/dL Cholesterol Total, POC 167 mg/dL Capillary blood 06/20/2024 1 1:32 AM INTERNSHIP Result Frederick Curiel MD POINT OF CARE TEST ORDERABLES Fi nal Result * Cardiology Document Scan (06/06/2024 1:46 PM INTERNSHIP) Anatomical Region Laterality Modality Other Result [facility] us Emiliana Anderson NP CV CARDIAC SERVICES PROCEDUR ES Final Result * Cardiology Document Scan (06/05/2024 1:44 PM INTERNSHIP) Anatomical Region Laterality Modality Other Result Frederick Curiel MD CV CARDIAC SERVICES PROCEDURES F inal Result * Cardiology Document Scan (06/05/2024 1:31 PM INTERNSHIP) Anatomical Region Laterality Modality Other Result Frederick Curiel MD CV CARDIAC SERVICES PROCEDURES F inal Result * SCAN - RADIOLOGY/IMAGING (06/04/2024) Anatomical Region Laterality Modality Other us Myles Mcghee MD Final Result from Last 3 [place] [address] [facility] [email or web address] AND [employer] [id number] Care Teams Brick Tosser Relationship Specialty Start Date End Date Buster Hylton MD PCP - General 10/18/17
--- OUTSIDE RECORDS SUMMARY | 2024-08-03 11:10 | XMS_ITS | Patient Health Summary ---
Author Organization [facility] Address [address] [place] [address] Care Team Providers Care Road Consultant Name Role Phone Yandel Covington PA-C Primary Care Provider [phone] [facility],non-owned Affiliates and Associated Physician Practices is amultiple site organization consisting of ambulatory clinics and hospital sitesin [place], [place], [place] and [place]. This disclosure is being madepursuant to the Care Everywhere program and may not contain all information available regarding this patient. Last updated 18.[facility] Allergies No known active allergies Medications * Be aware that medications may not be up to date on this document. Alwaysverify current medications with the patient. * azithromycin (ZITHROMAX) 250 MG tablet(Started 07/19/2016) Take 2 tablets now, then 1 tablet daily for 4 days. * predniSONE (DELTASONE) 20 MG tablet(Started 07/19/2016) 2 tablets PO QD x 5 days * albuterol HFA (PROAIR HFA) 108 (90 BASE) MCG/ACT inhaler(Started 07/19/2016) Inhale 2 Puffs by mouth every 6 hours as needed for Shortness of Breath, Wheezing or Cough Social History Tobacco Use Types Packs/Day Years Used Date Smoking Tobacco: Every Day Cigarettes 0.5 15 Tobacco Cessation:Ready to Q uit: No; Counseling Given: No Alcohol Use Standard Drinks/Week Comments No 0 (1 standard drink = 0.6 oz pur e alcohol) Sex and Gender Information Value Date Recorded Sex Assigned at Not on file Gender Identity Not on file Sexual Orientation Not on file Last Filed Vital Signs Vital Sign Reading Time Taken Comments Blood Pressure 130/76 07/19/2016 12:59 PM SENIOR PROFESSIONAL SERVICES CONSULTANT Pulse 94 07/19/2016 12:59 PM SENIOR PROFESSIONAL SERVICES CONSULTANT Temperature 36.6 ??C (97.8 ??F) 07/19/2016 12:[address] Respiratory Rate 20 07/19/2016 12:59 PM SENIOR PROFESSIONAL SERVICES CONSULTANT Oxygen Saturation 99% 07/19/2016 12:59 PM SENIOR PROFESSIONAL SERVICES CONSULTANT Inhaled Oxygen Concentration - - Weight 97.5 kg (215 lb) 07/19/2016 12:59 PM SENIOR PROFESSIONAL SERVICES CONSULTANT Height 175.3 cm (5' 9 ) 07/19/2016 12:59 PM SENIOR PROFESSIONAL SERVICES CONSULTANT Body Mass Index 31.75 07/19/2016 12:59 PM SENIOR PROFESSIONAL SERVICES CONSULTANT Care Teams Road Consultant Relationship Specialty Start Date End Date Yandel Covington PA-C PCP - General 07/19/16
--- OUTSIDE RECORDS SUMMARY | 2024-08-03 11:10 | XMS_ITS | Referral Summary ---
Author Organization [facility] [employer] Address [address] [place] [address] Care Team Providers Care Box Spring Upholsterer Name Role Phone Yandel Covington PA-C Primary Care Provider [phone] Source Comments [facility],non-owned Affiliates and Associated Physician Practices is amultiple site organization consisting of ambulatory clinics and hospital sitesin [place], [place], [place] and [place]. This disclosure is being madepursuant to the Care Everywhere program and may not contain all information available regarding this patient. Last updated 18.[facility] Allergies No known active allergies Medications * Be aware that medications may not be up to date on this document. Alwaysverify current medications with the patient. Medication Sig Dispensed Refills Start Date End Date Status azithromycin (ZITHROMAX) 250 MG tabletIndications:Ab normal sputum Take 2 tablets now, then 1 tablet daily for 4 days. 6 Tab 07/19/2016 Active predniSONE (DELTASONE) 20 MG tabletIndications:Ac mauro bronchitis, unspecified organism 2 tablets PO QD x 5 days 10 Tab 07/19/2016 Active albuterol HFA (PROAIR HFA) 108 (90 BASE) MCG/ACT inhalerIndications:A cute bronchitis, unspecified organism Inhale 2 Puffs by mouth every 6 hours as needed for Shortness of Breath, Wheezing or Cough 1 Inhaler 07/19/2016 Active Social History Tobacco Use Types Packs/Day Years [...] Comments Blood Pressure 130/76 07/19/2016 12:59 PM SALES CLERK SUPERVISOR Pulse 94 07/19/2016 12:59 PM SALES CLERK SUPERVISOR Temperature 36.6 ??C (97.8 ??F) 07/19/2016 12:[address] Respiratory Rate 20 07/19/2016 12:59 PM SALES CLERK SUPERVISOR Oxygen Saturation 99% 07/19/2016 12:59 PM SALES CLERK SUPERVISOR Inhaled Oxygen Concentration - - Weight 97.5 kg (215 lb) 07/19/2016 12:59 PM SALES CLERK SUPERVISOR Height 175.3 cm (5' 9 ) 07/19/2016 12:59 PM SALES CLERK SUPERVISOR Body Mass Index 31.75 07/19/2016 12:59 PM SALES CLERK SUPERVISOR Plan of Treatment Not on file Care Teams Box Spring Upholsterer Relationship Specialty Start Date End Date Yandel Covington PA-C PCP - General 07/19/16
--- OUTSIDE RECORDS SUMMARY | 2024-08-03 11:10 | XMS_ITS | Encounter Summary ---
Author Organization [facility] Healthcare Address [facility] [place] [address] Care Team Providers Care Machine Setter And Repairer Name Role Phone Buster Hylton MD Primary Care Provider [phone] Encounter Details Date Type Department Care Team (Late st Contact Info) Description 07/07/2024 Orders Only [facility] Health Information Management [address] [place] [id number] Joao Curiel MD [address] [facility] [address] [place] [address] Social History Tobacco Use Types Packs/Day Years Used Date Smoking Tobacco: Some Days Cigarettes Sex and Gender Information Value Date Recorded Sex Assigned at Not on file 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 Gender Identity Not on file Sexual Orientation Not on file documented as of this encounter Plan of Treatment Not on file documented as of this encounter Procedures Procedure Name Priority Date/Time Associated Diagnosis Comments SCAN - RADIOLOGY/IMAGING 07/07/2024 documented in this encounter Results * SCAN - RADIOLOGY/IMAGING (07/07/2024) Anatomical Region Laterality Modality Other us Joao Curiel MD Final Result documented in this encounter Visit Diagnoses Not on filedocumented in this encounter Care Teams Machine Setter And Repairer Relationship Specialty Start Date End Date Buster Hylton MD PCP - General 10/18/17 documented as of this encounter
--- OUTSIDE RECORDS SUMMARY | 2024-08-03 11:10 | XMS_ITS | Clinical Summary ---
Author Organization [facility] Address [address] [place] [address] Care Team Providers Care Community Leader Name Role Phone Yandel Covington PA-C Primary Care Provider [phone] Source Comments [facility],non-owned Affiliates and Associated Physician Practices is amultiple site organization consisting of ambulatory clinics and hospital sitesin [place], [place], [place] and [place]. This disclosure is being madepursuant to the Care Everywhere program and may not contain all information available regarding this patient. Last updated 18.[facility] Allergies No known active allergies Medications * [...] Wheezing or Cough 1 Inhaler 07/19/2016 Active Family History Medical History Relation Name Comments Aneurysm Mother Relation Name Status Comments Mother Social History Tobacco Use Types Packs/Day Years [...] Comments Blood Pressure 130/76 07/19/2016 12:59 PM STUDIO OPERATION ENGINEER Pulse 94 07/19/2016 12:59 PM STUDIO OPERATION ENGINEER Temperature 36.6 ??C (97.8 ??F) 07/19/2016 12:[address] Respiratory Rate 20 07/19/2016 12:59 PM STUDIO OPERATION ENGINEER Oxygen Saturation 99% 07/19/2016 12:59 PM STUDIO OPERATION ENGINEER Inhaled Oxygen Concentration - - Weight 97.5 kg (215 lb) 07/19/2016 12:59 PM STUDIO OPERATION ENGINEER Height 175.3 cm (5' 9 ) 07/19/2016 12:59 PM STUDIO OPERATION ENGINEER Body Mass Index 31.75 07/19/2016 12:59 PM STUDIO OPERATION ENGINEER Plan of Treatment Health Maintenance Due Date Last Done Comments COLOGUARD (AGES 45-75) - COL ON CA SCREENING 1977 COLON MONITORING 1977 COLONOSCOPY - COLON CA SCREENING 1977 CT COLONOGRAPHY - COLON CA SCREENING 1977 Colorectal Cancer Screening 1977 FIT - COLON CA SCREENING 1977 FLEX SIG - COLON CA SCREENING 1977 LIPID TESTING 1977 HIV SCREENING 1992 HEPATITIS C SCREENING 04/21/1995 DTAP/TDAP/TD VACCINES (1 - Tdap) 1996 HEPATITIS B VACCINE (1 of 3 - 19+ 3-dose series) 1996 PNEUMOCOCCAL VACCINE (1 of 2 - PCV) 1996 COVID-19 VACCINE (1 - 2023-2 5 season) 2024 INFLUENZA VACCINE (#1) 2024 DEPRESSION SCREENING 07/12/2024 ZOSTER VACCINE (1 of 2) 2027 HIB VACCINE Aged Out No longer eligi ble based on patient's age to complete this topic HPV VACCINE Aged Out No longer eligi ble based on patient's age to complete this topic MENINGOCOCCAL (Group B) VACCINE Aged Out No longer eligible based on patient's age to complete this topic MENINGOCOCCAL VACCINE Aged Out No davin loco eligible based on patient's age to complete this topic Care Teams Community Leader Relationship Specialty Start Date End Date Yandel Covington PA-C [facility] - General 07/19/16
--- OUTSIDE RECORDS SUMMARY | 2024-08-03 11:10 | XMS_ITS | Clinical Summary ---
Author Organization [facility] [address] [facility] [address] Address [address] [place] [address] Care Team Providers Care Narrow Gauge Engineer Name Role Phone Buster Hylton MD Primary Care Provider [phone] Medications ticagrelor (BRILINTA) 90 mg tablet Take [...] ) Active Problems No known active problems Encounters Date Type Department Care Team Description 08/01/2024 Telephone [place] [address] [place] [phone] Joao Curiel MD 07/26/2024 Telephone [place] [address] [place] [phone] Joao Curiel MD 07/25/2024 8:45 AM SAP BW BI DEVELOPER Office Visit [place] [address] [place] [phone] Joao Curiel MD History of ST elevation myocardial infarction (STEMI) (Primary Dx) 07/24/2024 Telephone [place] [address] [place] [phone] Joao Curiel MD 07/20/2024 Telephone [place] [address] [place] [phone] Joao Curiel MD 07/07/2024 Orders Only [facility] Health Information Management [address] [place] [phone] Joao Curiel MD 07/06/2024 Telephone [place] [address] [place] [phone] Joao Curiel MD 06/26/2024 Telephone [place] [address] [place] [phone] Joao Curiel MD Loss of Vision; Chest Pain 06/21/2024 Telephone [place] [address] [place] [phone] Joao Curiel MD Med Management; questions about stents 06/20/2024 8:30 AM SAP BW BI DEVELOPER Office Visit [place] [address] [place] [phone] Joao Curiel MD Vision loss of right eye (Primary Dx); Need for lipid screening 06/09/2024 Telephone [facility] [address] [place] [phone] Joao Curiel MD Med Management 06/07/2024 Orders Only [facility] [address] [place] [phone] Joao Curiel MD 06/07/2024 Telephone [facility] [address] [place] [phone] Joao Curiel MD Fatigue; Difficulty Urinating; Shaking; Medication Reaction 06/04/2024 Orders Only [facility] Health Information Management [address] [place] [phone] Myles Mcghee MD from Last 3 Months Surgical History Surgery Date Site/Laterality Comments CARDIAC CATHETERIZATION 06/05/2024 OTHER SURGICAL HISTORY radha removed as child Medical History Medical History Date Comments Reflux esophagitis Chronic Reflu x Esophagitis - (Added by Conv) Anxiety disorder Anxiety - (Adde d by TW Conv) Personal history of other me ntal and behavioral disorders History of depression - (Add ed by TW Conv) NSTEMI (non-ST elevated myoc ardial infarction) (CMS/HCC) (HCC) Coronary artery disease Hyperlipidemia Family History Medical History Relation Name Comments Hyperlipidemia Father Hypertension Father Aneurysm Mother Brain cancer Other Brain Tumor - ( Added by TW Conv) Relation Name Status Comments Father Alive Mother Alive Other Social History Tobacco Use Types Packs/Day Years Used Date Smoking Tobacco: Some Days Cigarettes Tobacco Cessation:Ready to Q uit: Not Asked; Counseling Given: Not Answered Sex and Gender Information Value Date Recorded Sex Assigned at Not on file Legal Sex Male 3:03 AM SAP BW BI DEVELOPER Gender Identity Not on file Sexual Orientation Not on file Obstetrics History Last Filed Vital Signs Vital Sign Reading Time Taken Comments Blood Pressure 110/70 07/25/2024 9:01 AM SAP BW BI DEVELOPER Pulse 69 07/25/2024 9:01 AM SAP BW BI DEVELOPER Temperature - - Respiratory Rate - - Oxygen Saturation 98% 07/25/2024 9:01 AM SAP BW BI DEVELOPER Inhaled Oxygen Concentration - - Weight 93.4 kg (206 lb) 07/25/2024 9:01 AM SAP BW BI DEVELOPER Height 175.3 cm (5' 9 ) 07/25/2024 9:01 AM SAP BW BI DEVELOPER Body Mass Index 30.42 07/25/2024 9:01 AM SAP BW BI DEVELOPER Plan of Treatment Health Maintenance Due Date Last Done Comments Colon Cancer Screening-Colonoscopy 1977 Depression Screening 1977 Hepatitis C Screening 1977 Pneumococcal vaccine <65 (1 of 2 - PCV) 1983 DTaP/Tdap/Td Vaccine (1 - Tdap) 1988 Hepatitis B Screening 1995 Regular Well Visit/Exam 18-64 1995 Influenza Vaccine (#1) 2024 Procedures Procedure Name Priority Date/Time Associated Diagnosis Comments SCAN - RADIOLOGY/IMAGING 07/07/2024 POCT LIPID PANEL Routine 06/20/2024 11:3 2 AM SAP BW BI DEVELOPER Need for lipid screening CARDIOLOGY DOCUMENT SCAN Routine 06/06/2024 1:46 PM SAP BW BI DEVELOPER CARDIOLOGY DOCUMENT SCAN Routine 06/05/2024 1:44 PM SAP BW BI DEVELOPER CARDIOLOGY DOCUMENT SCAN Routine 06/05/2024 1:31 PM SAP BW BI DEVELOPER SCAN - RADIOLOGY/IMAGING 06/04/2024 from Last 3 Months Results * SCAN - RADIOLOGY/IMAGING (07/07/2024) Anatomical Region Laterality Modality Other us Joao Curiel MD Final Result * POCT lipid panel (06/20/2024 11:32 AM SAP BW BI DEVELOPER) Cholesterol, POC 167 mg/dL Comment:GLU = 126 HDL, POC 20 mg/dL Triglycerides, POC 209 mg/dL LDL Cholesterol POC 105 mg/dL Chol/HDL Ratio, POC 5.3 Non-HDL Cholesterol, POC 147 mg/dL Cholesterol Total, POC 167 mg/dL Capillary blood 06/20/2024 1 1:32 AM SAP BW BI DEVELOPER us Joao Curiel MD POINT OF CARE TEST ORDERABLES Fi nal Result * Cardiology Document Scan (06/06/2024 1:46 PM SAP BW BI DEVELOPER) Anatomical Region Laterality Modality Other Emiliana Anderson NP CV CARDIAC SERVICES PROCEDUR ES Final Result * Cardiology Document Scan (06/05/2024 1:44 PM SAP BW BI DEVELOPER) Anatomical Region Laterality Modality Other Joao Curiel MD CV CARDIAC SERVICES PROCEDURES F inal Result * Cardiology Document Scan (06/05/2024 1:31 PM SAP BW BI DEVELOPER) Anatomical Region Laterality Modality Other Joao Curiel MD CV CARDIAC SERVICES PROCEDURES F inal Result * SCAN - RADIOLOGY/IMAGING (06/04/2024) Anatomical Region Laterality Modality Other Myles Mcghee MD Final Result from Last 3 Months [facility] [id number] [place] [address] [facility] [employer] [id number] Care Teams Narrow Gauge Engineer Relationship Specialty Start Date End Date Buster Hylton MD PCP - General 10/18/17
== END 2024-07-31 15:15 | disposition home or self-care (01) ==
PROVIDERS: Internal Medicine Interventional Cardiology; PCP Family Medicine; Visit Provider Internal Medicine
PROC: 4A023N7 Measurement of Cardiac Sampling and Pressure, Left Heart, Percutaneous Approach (ICD-10-PCS; CPT 93452; principal; 2024-07-31 10:00)
DX: I25.119 Atherosclerotic heart disease of native coronary artery with unspecified angina pectoris (principal); I25.2 Old myocardial infarction; I10 Essential (primary) hypertension; E78.5 Hyperlipidemia, unspecified; I42.9 Cardiomyopathy, unspecified; Z79.82 Long term (current) use of aspirin; Z79.01 Long term (current) use of anticoagulants; F17.200 Nicotine dependence, unspecified, uncomplicated
CPT/HCPCS: 36415; 80048; 85025; 92978; 93458; A9270; C1725; C1753; C1760; C1769; C1874; C1887; C1894; C9600; G0269; J1644; J2003; J2250; J2305; J3010; J7030; J7040

== ENCOUNTER 2024-12-12 12:02 | Emergency (ER) | payer OTHER, SELFPAY ==
--- OUTSIDE RECORDS SUMMARY | 2024-12-12 12:04 | XMS_ITS | Clinical Summary ---
Author Organization [facility] [employer] Address [address] [place] [address] Care Team Providers Care Equipment Specialist Name Role Phone Yandel Covington PA-C Primary Care Provider [phone] Source Comments [facility],non-owned Affiliates and Associated Physician Practices is amultiple site organization consisting of ambulatory clinics and hospital sitesin [place], [place], [place] and [place]. This disclosure is being madepursuant to the Care Everywhere program and may not contain all information available regarding this patient. Last updated 18.[facility] [employer] Allergies No known active allergies Medications * Be aware that medications may not be up to date on this document. Alwaysverify current medications with the patient. azithromycin (ZITHROMAX) 250 MG tabletIndication s:Abnormal sputum Take 2 tablets now, then 1 tablet daily for 4 days. 6 Tab 7 Active predniSONE (DELTASONE) 20 MG tabletIndication s:Acute bronchitis, unspecified organism 2 tablets PO QD x 5 days 10 Tab 7 Active albuterol HFA (PROAIR HFA) 108 (90 BASE) MCG/ACT inhalerIndicatio ns:Acute bronchitis, unspecified organism Inhale 2 Puffs by mouth every 6 hours as needed for Shortness of Breath, Wheezing or Cough 1 Inhaler 7 Active Family History Medical History Relation Name [...] at Not on file Legal Sex Male 5:33 AM PILOT FUEL ENGINEER Gender Identity Not on file Sexual Orientation Not on file Last Filed Vital Signs Vital Sign Reading Time Taken Comments Blood Pressure 130/76 07/19/2016 12:59 PM PILOT FUEL ENGINEER Pulse 94 07/19/2016 12:59 PM PILOT FUEL ENGINEER Temperature 36.6 C (97.8 F) 07/19/2016 12:59 PM PILOT FUEL ENGINEER Respiratory Rate 20 07/19/2016 12:59 PM PILOT FUEL ENGINEER Oxygen Saturation 99% 07/19/2016 12:59 PM PILOT FUEL ENGINEER Inhaled Oxygen Concentration - - Weight 97.5 kg (215 lb) 07/19/2016 12:59 PM PILOT FUEL ENGINEER Height 175.3 cm (5' 9) 07/19/2016 12:59 PM PILOT FUEL ENGINEER Body Mass Index 31.75 07/19/2016 12:59 PM PILOT FUEL ENGINEER Plan of Treatment Health Maintenance Due [...] 3 - 19+ 3-dose series) 1996 COVID-19 VACCINE (1 - 2023-2 5 season) 2024 DEPRESSION SCREENING 07/12/2024 INFLUENZA VACCINE (Season Ended) 2025 ZOSTER VACCINE (1 of 2) 2027 HIB VACCINE Aged Out No longer eligi ble based on patient's age to complete this topic HPV VACCINE Aged Out No longer eligi ble based on patient's age to complete this topic MENINGOCOCCAL (Group B) VACC INE SHARED DECISION-MAKING Aged Out No longer eligibl e based on patient's age to complete this topic MENINGOCOCCAL GROUPS A/C/Y/W VACCINE Aged Out No longer eligible b ased on patient's age to complete this topic PNEUMOCOCCAL VACCINE Aged Out No long er eligible based on patient's age to complete this topic Care Teams Equipment Specialist Relationship Specialty Start Date End Date Yandel Covington PA-C PCP - General 07/19/16
--- OUTSIDE RECORDS SUMMARY | 2024-12-12 12:05 | XMS_ITS | Encounter Summary ---
Author Organization [facility] Healthcare Address [address] [place] [address] Care Team Providers Care Hyster Machine Operator Name Role Phone Buster Hylton MD Primary Care Provider Encounter Details Date Type Department Care Team (Late st Contact Info) Description 07/31/2024 Orders Only [facility] Health Information Management [address] [place] [address] Amirah Dueñas MD [address] [facility] [address] [place] [address] Social History Tobacco Use Types Packs/Day Years Used Date Smoking Tobacco: Some Days Cigarettes Sex and Gender Information Value Date Recorded Sex Assigned at Not on file Legal Sex Male 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 SPECIALIST Gender Identity Not on file Sexual Orientation Not on file documented as of this encounter Plan of Treatment Not on file documented as of this encounter Procedures Procedure Name Priority Date/Time Associated Diagnosis Comments CARDIOLOGY DOCUMENT SCAN 07/31/2024 documented in this encounter Results * Cardiology Document Scan (07/31/2024) Anatomical Region Laterality Modality Other us Amirah Dueñas MD CV CARDIAC SERVICES PROCEDU RES Final Result documented in this encounter Visit Diagnoses Not on filedocumented in this encounter Care Teams Hyster Machine Operator Relationship Specialty Start Date End Date Buster Hylton MD PCP - General 10/18/17 documented as of this encounter
--- OUTSIDE RECORDS SUMMARY | 2024-12-12 12:05 | XMS_ITS | Clinical Summary ---
Author Organization [facility] [address] Address [address] [place] [address] Care Team Providers Care Framing Inspector Name Role Phone Buster Hylton MD Primary Care Provider + [phone] Allergies No known active allergies Medications aspirin 81 mg enteric coated tablet Take 1 tablet (81 mg total) by mouth daily Active cyanocobalamin (Vitamin B-12) 1,000 mcg tabletIndicati ons:Prevention of Vitamin B12 Deficiency Take 1 tablet (1,000 mcg total) by mouth daily Active vitamin D3-vitamin K2 25 mcg (1,000 unit)-90 mcg tablet,disinte grating Take by mouth Active buPROPion XL (WELLBUTRIN XL) 300 mg 24 hr tablet Take 1 tablet (300 mg total) by mouth daily Active omeprazole (PriLOSEC) 40 mg capsule Take 1 capsule (40 mg total) by mouth daily Active testosterone cypionate (DEPO-TESTOTER ONE) 100 mg/mL injection Inject into the muscle as instructed every 14 (fourteen) days Active metoprolol XL (TOPROL-XL) 25 mg extended release tabletIndicati ons:Chest pain, unspecified type Take 1 tablet (25 mg total) by mouth daily 30 tablet 11 07/07/20 24 025 Active clopidogreL (PLAVIX) 75 mg tabletIndicati ons:myocardial infarction prevention Loading dose of 600 mg on first day then 75 mg daily 38 tablet 11 12/07/19 25 Active ticagrelor (BRILINTA) 90 mg tablet Take 1 tablet (90 mg total) by mouth 2 (two) times a day 025 Discontinued(Al ternate therapy) losartan (COZAAR) 25 mg tablet Take 1 tablet (25 mg total) by mouth daily 025 Discontinued(Th erapy completed) atorvastatin (LIPITOR) 80 mg tabletIndicati ons:Coronary artery disease involving [place] coronary artery of [place] heart with angina pectoris Take 1 tablet (80 mg total) by mouth daily 30 tablet 08/04/19 025 Discontinued( erapy completed) evolocumab (Repatha SureClick) 140 mg/mL pen injector Inject 1 mL (140 mg total) under the skin every 14 (fourteen) days 2 mL 09/05/19 025 Discontinued Active Problems No known active problems Encounters Date Type Department Care Team Description 12/05/2024 3:50 PM CDT Lab [facility] [address] [place] [address] NSTEMI (non-ST elevated myocardial infarction) (HCC); Mixed hyperlipidemia 12/05/2024 2:30 PM CDT Office Visit [facility] Cardiology [facility] Medical Office Building [address] [place] [id number] Eddi Boss MD Chest discomfort (Primary Dx); Mixed hyperlipidemia; NSTEMI (non-ST elevated myocardial infarction) (HCC) 12/05/2024 Results Follow-Up [facility] Cardiology [address] [place] [address] Advanced Medicine 8th [place] [address] [place] [address] Eddi Boss MD ECG 12 lead, Basic metabolic panel, CBC with auto differential, Additional followed-up results: 4 11/24/2024 Telephone [facility] Cardiology [address] [place] [address] Patria Curiel MD 11/15/2024 6:19 PM CDT - 11/15/2024 11:59 PM CDT Hospital Encounter [facility] [address] [place] [address] Discharge Disposition: Discharge to home or self care 11/10/2024 Telephone [facility] Cardiology [address] [place] [address] Advanced Medicine 8th [place] [address] [place] [address] Eddi Boss MD 09/27/2024 Results Follow-Up [facility] Medical [facility] Cardiology [address] [place] [address] Margarette Christopher RN Transthoracic Echo (TTE) Complete W Doppler/CF 09/26/2024 1:00 PM CDT Ancillary Procedure [facility] Cardiology [address] [place] [address] Status post insertion of drug-eluting stent into right coronary artery for coronary artery disease from Last 3 Months Surgical History Surgery Date Site/Laterality Comments CARDIAC CATHETERIZATION 06/05/2024 OTHER SURGICAL HISTORY radha removed as child CARDIAC STENT PLACEMENT 07/31/2024 3 STENTS PLACED Medical History Medical History Date Comments Reflux esophagitis Chronic Reflu x Esophagitis - (Added by TW Conv) Anxiety disorder Anxiety - (Adde d by TW Conv) Personal history of other me ntal and behavioral disorders History of depression - (Add ed by TW Conv) NSTEMI (non-ST elevated myoc ardial infarction) (HCC) Coronary artery disease Hyperlipidemia Family History [...] on file 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 Gender Identity Not on file Sexual Orientation Not on file Obstetrics History Last Filed Vital Signs Vital Sign Reading Time Taken Comments Blood Pressure 149/99 12/05/2024 2:08 PM CDT Pulse 97 12/05/2024 2:03 PM CDT Temperature - - Respiratory Rate - - Oxygen Saturation 97% 12/05/2024 2:03 PM CDT Inhaled Oxygen Concentration - - Weight 96.4 kg (212 lb 8 oz) 12/05/2024 2:03 PM CDT Height 175.3 cm (5' 9) 12/05/2024 2:03 PM CDT Body Mass Index 31.38 12/05/2024 2:03 PM CDT Plan of Treatment Health Maintenance Due Date Last Done Comments Colon Cancer Screening-Colonoscopy 1975 Depression Screening 1975 Hepatitis C Screening 1975 DTaP/Tdap/Td Vaccine (1 - Tdap) 1988 Hepatitis B Screening 1995 Regular Well Visit/Exam 18-64 1995 Pneumococcal vaccine <65 (1 of 2 - PCV) 1996 Influenza Vaccine (Season Ended) 2025 Procedures Procedure Name Priority Date/Time Associated Diagnosis Comments CHOLESTEROL, LDL, DIRECT Routine 12/05/2024 3:57 PM CDT Mixed hyperlipidemia EGFR Routine 12/05/2024 3:57 PM CDT NSTEMI (non-ST elevated myocardial infarction) (HCC) DIFFERENTIAL AUTO Routine 12/05/2024 3:5 7 PM CDT NSTEMI (non-ST elevated myocardial infarction) (HCC) PRO B-TYPE NATRIURETIC PEPTIDE Routine 12/05/2024 3:57 PM CDT NSTEMI (non-ST elevated myocardial infarction) (HCC) LIPID PANEL Routine 12/05/2024 3:57 PM CDT Mixed hyperlipidemia CBC WITH AUTO DIFFERENTIAL Routine 12/05/2024 3:57 PM CDT NSTEMI (non-ST elevated myocardial infarction) (HCC) BASIC METABOLIC PANEL Routine 12/05/2024 3:57 PM CDT NSTEMI (non-ST elevated myocardial infarction) (HCC) ECG 12-LEAD Routine 12/05/2024 2:02 PM CDT Chest discomfort IR OUTSIDE REFERENCE Routine 11/15/2024 6:19 PM CDT TRANSTHORACIC ECHO (TTE) COMPLETE W DOPPLER/CF WO CONTRAST Routine 09/26/2024 1:09 PM CDT Status post insertion of drug-eluting stent into right coronary artery for coronary artery disease from Last 3 Months Results * eGFR (12/05/2024 3:57 PM CDT) eGFR >90 >=60 mL/min/1. 73 m2 Comment: Interpretive Data Reference Interval Normal >/= 90 mL/min/1.73m2 Mildly decreased* 60 - 89 mL/min/1.73m2 Mildly to moderately decreased 45 - 59 mL/min/1.73m2 Moderately to severely decreased 30 - 44 mL/min/1.73m2 Severely decreased 15 - 29 mL/min/1.73m2 Kidney Failure < 15 mL/min/1.73m2 *Relative to young adult level Estimated glomerular filtration rate is determined by the 2020 CKD-EPI equation recommended by the National Kidney Foundation (A Unifying Approach to GFR Estimation: Recommendations of the NKF-ASK Task Force on Reassessing the Inclusion of Race in Diagnosing Kidney Disease, JASN 2020). The CKD-EPI equation should not be used for patients with unstable renal function and has not been validated in children and those over 70. Current interpretive data was last reviewed 2021. Blood 12/05/2024 3:57 PM CDT 12/05/2024 4:44 PM CDT us Eddi Boss MD LAB BLOOD ORDERABLES Final Re sult [facility]K [facility]ELENDEZ[facility] [address] [facility]. Department [place] [address] * (ABNORMAL) Differential, auto (12/05/2024 3:57 PM CDT) Neutrophil abs 6.70(H) 1.50 - 6.50 K/cumm Imm gran abs 0.06 0.00 - 0.10 K/cumm [facility] Lymphocyte abs 2.93 0.80 - 3.30 K/cumm [facility] Monocyte abs 0.85(H) 0.20 - 0.80 K/cumm [facility] Eosinophil abs 0.36 0.00 - 0.50 K/cumm [facility] Basophil abs 0.10 0.00 - 0.10 K/cumm [facility] Neutrophil pct 61.0 % VIK DC Comment: Interpretive Data Percent cell count reference ranges are not reported, since discordance with absolute values may lead to misinterpretation of CBC data. Current Interpretive Data was last revised on 2017. Imm gran pct 0.5 % VIK DC Comment: Interpretive Data Percent cell count reference ranges are not reported, since discordance with absolute values may lead to misinterpretation of CBC data. Current Interpretive Data was last revised on 2017. Lymphocyte pct 26.6 % VIK DC Comment: Interpretive Data Percent cell count reference ranges are not reported, since discordance with absolute values may lead to misinterpretation of CBC data. Current Interpretive Data was last revised on 2017. Monocyte pct 7.7 % VIK DC Comment: Interpretive Data Percent cell count reference ranges are not reported, since discordance with absolute values may lead to misinterpretation of CBC data. Current Interpretive Data was last revised on 2017. Eosinophil pct 3.3 % VIK DC Comment: Interpretive Data Percent cell count reference ranges are not reported, since discordance with absolute values may lead to misinterpretation of CBC data. Current Interpretive Data was last revised on 2017. Basophil pct 0.9 % VIK DC Comment: Interpretive Data Percent cell count reference ranges are not reported, since discordance with absolute values may lead to misinterpretation of CBC data. Current Interpretive Data was last revised on 2017. Blood 12/05/2024 3:57 PM CDT 12/05/2024 4:44 PM CDT us Eddi Boss MD LAB BLOOD ORDERABLES Final Re sult [facility] [address] [facility]. Department of [employer] [place] [address] * Pro B-type natriuretic peptide (12/05/2024 3:57 PM CDT) NT-proBNP <36 <=300 pg/mL Comment: Interpretive Comments: A. Dyspnea in Acute Care Setting All Ages: < 300 pg/ml, acute heart failure unlikely. < 50 yrs: 300 - 450 pg/ml, further investigation warranted. > 450 pg/ml, acute heart failure likely. 50 - 74 yrs: 300 - 900 pg/ml, further investigation warranted. > 900 pg/ml, acute heart failure likely . > or = 75 yrs: 450 - 1800 pg/ml, further investigation warranted. > 1800 pg/ml, acute heart failure likely. B. Non-acute Setting < 75 yrs < 125 pg/ml, rules out heart failure. > or = 125 pg/ml, further investigation warranted. > or = 75 yrs < 450 pg/ml, rules out heart failure. > or = 450 pg/ml, further investigation warranted. - Knowledge of each individual patient's NT-proBNP range may be more useful than using similar cut-points for every patient. Please note that marked elevations in NT-proBNP levels may be observed in state other than Left Ventricular Congestive Failure, including: acute coronary syndromes, right heart strain/failure (including pulmonary embolism and cor pulmonale), critical illness, renal failure, as well as advanced age. - References: 1. Jayden LATIF et.al. Eur Heart J. 2006:27:330-337. 2. Aly RW, Morena LOPEZ. J. AM Caro Cardiol: Cardiovasc Imag. 2009;2: 216- 225. Interpretive Data Last Revised Date: 2018. Blood 12/05/2024 3:57 PM CDT 12/05/2024 4:44 PM CDT us Eddi Boss MD LAB BLOOD ORDERABLES Final Re sult [facility] Organization Address City/State/ZIP Co de Phone Number VIK GREGGCH [phone] [facility]. Department [place] [address] * (ABNORMAL) CBC with auto differential (12/05/2024 3:57 PM CDT) [facility] WBC 11.00(H) 3.80 - 9.90 K/cumm Hgb 17.8(H) 13.0 - 17.5 g/dL VIK MELENDEZ Hct 51.4(H) 38.9 - 50.3 % VIK DC Plt 310 150 - 400 K/cumm VIK DC MPV 9.2 9.1 - 12.3 fL VIK DC RBC 5.70 4.30 - 5.80 M/cumm VIK DC MCV 90.2 81.3 - 96.4 fL VIK DC MCH 31.2 27.1 - 33.3 pg VIK DC MCHC 34.6 32.3 - 35.7 g/dL VIK GREGGW RDW CV 13.3 11.1 - 14.9 % [facility] RDW SD 43.6 35.7 - 48.1 fL VIK MELENDEZ NRBC abs 0.00 0.00 - 0.01 K/cumm [facility] Blood 12/05/2024 3:57 PM CDT 12/05/2024 4:44 PM CDT us Eddi Boss MD LAB BLOOD ORDERABLES Final Re sult VIK MELENDEZ [address] [facility]. Department [place] [address] * (ABNORMAL) Cholesterol, LDL, direct (12/05/2024 3:57 PM CDT) LDL Cholesterol, Direct 236(H) <=129 mg/dL Comment: Interpretive Data Ages < or = 19 years Acceptable: <110 mg/dL Borderline high: 110-129 mg/dL High: >or= 130 mg/dL Ages > or = 20 years Optimal: <100 mg/dL Near optimal: 100-129 mg/dL Borderline high: 130-159 mg/dL High: >160 mg/dL Literature References: 1. Expert Panel on Integrated Guidelines for Cardiovascular Health and Risk Reduction in Children and Adolescents. Pediatrics 2011;128:S213 2. NCEP Expert Panel. Circulation 2004;110:227 Current Interpretive Data was last revised on 2018. Testing performed by: [facility], [address] [facility] [place]., [address] Blood 12/05/2024 3:57 PM CDT 12/06/2024 11:05 AM CDT Narrative VIK DC - 12/06/2024 11:55 AM CDT Cholesterol, LDL, direct reflexed based on Elevated Triglyceride (>400) us Eddi Boss MD LAB BLOOD ORDERABLES Final Re sult VIK MELENDEZ [address] [facility]. Department [place] [address] * (ABNORMAL) Lipid panel (12/05/2024 3:57 PM CDT) Cholesterol 338(H) 30 - 199 mg/dL Comment: Interpretive Data Ages < or = 19 years Acceptable: <170 mg/dL Borderline high: 170-199 mg/dL High: >or= 200 mg/dL Ages > or = 20 years Desirable: <200 mg/dL Borderline high: 200-239 mg/dL High: >or= 240 mg/dL Literature References: 1. Expert Panel on Integrated Guidelines for Cardiovascular Health and Risk Reduction in Children and Adolescents. Pediatrics 2011;128:S213 2. NCEP Expert Panel. Circulation 2004;110:227 Current Interpretive Data was last revised on 2018. Triglycerides 548(H) <=149 mg/dL VIK DC Comment: Interpretive Data Ages < or = 9 years Acceptable: <75 mg/dL Borderline high: 75-99 mg/dL High: >or= 100 mg/dL Ages 10 to 20 years Acceptable: <90 mg/dL Borderline high: 90-129 mg/dL High: >or= 130 mg/dL Ages > or = 20 years Desirable: <150 mg/dL Borderline high: 150-199 mg/dL High: 200-499 mg/dL Very high: >or= 499 mg/dL Literature References: 1. Expert Panel on Integrated Guidelines for Cardiovascular Health and Risk Reduction in Children and Adolescents. Pediatrics 2011;128:S213 2. NCEP Expert Panel. Circulation 2004;110:227 Current Interpretive Data was last revised on 2018. HDL 38(L) >=40 mg/dL VIK DC Comment: Interpretive Data Ages < or = 19 years Acceptable: >45 mg/dL Borderline low: 40-45 mg/dL Low: <40 mg/dL Ages > or = 20 years Desirable: >or= 60 mg/dL Low: <40 mg/dL Literature References: 1. Expert Panel on Integrated Guidelines for Cardiovascular Health and Risk Reduction in Children and Adolescents. Pediatrics 2011;128:S213 2. NCEP Expert Panel. Circulation 2004;110:227 Current Interpretive Data was last revised on 2018. LDL, calculated See Comment <=129 mg/dL VIK DC Comment: Unable to calculate due to elevated Triglycerides. Interpretive Data Ages < or = 19 years Acceptable: <110 mg/dL Borderline high: 110-129 mg/dL High: >or= 130 mg/dL Ages > or = 20 years Optimal: <100 mg/dL Near optimal: 100-129 mg/dL Borderline high: 130-159 mg/dL High: >160 mg/dL Calculated using the Hal LDL-C estimating equation. This equation was implemented on 2024. Prior to this date LDL-C was estimated using the Friedewald equation. Literature References: 1. Expert Panel on Integrated Guidelines for Cardiovascular Health and Risk Reduction in Children and Adolescents. Pediatrics 2011;128:S213 2. NCEP Expert Panel. Circulation 2004;110:227 3. Hal M et al. RODRIGO Cardiol. 2019November 09;5(5):540-548. doi: 10.1001/jamacardio.2020.0013 Current Interpretive Data was last revised on 2024. Non-HDL Cholesterol 300 mg/dL VIK DC Comment: Interpretive Data Ages < or = 19 years Acceptable: <120 mg/dL Borderline high: 120-144 mg/dL High: >145 mg/dL Ages > or = 20 years When triglycerides are >200 mg/dL, Non-HDL cholesterol is a secondary target of therapy with treatment goals that are 30 mg/dL greater than the LDL cholesterol target. Literature References: 1. Expert Panel on Integrated Guidelines for Cardiovascular Health and Risk Reduction in Children and Adolescents. Pediatrics 2011;128:S213 2. NCEP Expert Panel. Circulation 2004;110:227 Current Interpretive Data was last revised on 2018. Chol/HDL ratio 9 VIK DC Blood 12/05/2024 3:57 PM CDT 12/05/2024 4:44 PM CDT Eddi Boss MD LAB BLOOD ORDERABLES Final Re sult Performing Organization Address [facility] [place] [phone] [email or web address] [place] [address] * Basic metabolic panel (12/05/2024 3:57 PM CDT) [facility] Sodium 139 135 - 145 mmol/L Potassium, pl 3.9 3.3 - 4.9 mmol/L [facility] Chloride 103 97 - 110 mmol/L [facility] CO2 22 22 - 32 mmol/L [facility] Anion gap 14 2 - 15 mmol/L [facility] BUN 12 6 - 25 mg/dL [facility] Creatinine 0.94 0.80 - 1.30 mg/dL [facility] Glucose 111 70 - 199 mg/dL [facility] Comment: Interpretive Data Fasting glucose >/= 126 mg/dl is diagnostic for diabetes. Fasting is defined as no caloric intake for at least 8 hours. Fasting glucose between 100 mg/dl to 125 mg/dl is diagnostic of prediabetes. In a patient with classic symptoms of hyperglycemia or hyperglycemic crisis, a random glucose >/= 200 mg/dl is diagnostic for diabetes. In the absence of unequivocal hyperglycemia, results should be confirmed by repeat testing. The classification and Diagnosis of Diabetes Diabetes Care 2021; 46: S19-S40. Current interpretive data was last revised 2022. Calcium 9.3 8.5 - 10.3 mg/dL [facility] Blood 12/05/2024 3:57 PM CDT 12/05/2024 4:44 PM CDT Eddi Boss MD LAB BLOOD ORDERABLES Final Re sult Performing Organization Address [facility] Co de Phone Number VIK MELENDEZCH [address] [employer]. Department of [employer] [place] [address] * ECG 12 lead (12/05/2024 2:02 PM CDT) Eddi Boss MD ECG ORDERABLES Edited Result - Final * IR Outside Reference (11/15/2024 6:19 PM CDT) Impressions [facility] - 11/15/2024 6:19 PM CDT These images are for Reference purposes only and have not been reviewed by [facility] Radiology. There will be no report generated by a [facility] Radiologist. Narrative [facility] - 11/15/2024 6:19 PM CDT EXAMINATION: Images For Reference Purposes Only Eddi Boss MD IMG IR PROCEDURES Final Resul t [facility] * TRANSTHORACIC ECHO (TTE) COMPLETE W DOPPLER/CF WO CONTRAST (09/26/2024 1:09 PM CDT) LV EF 65 % CONS SCIMAGE Anatomical Region Laterality Modality Ultrasound 09/26/2024 12:5 0 PM CDT Narrative 09/26/2024 2:45 PM CDT [facility] Cardiology [address] [facility] [address], [place] [address] [address], [place] [address] P:[phone] P:[phone] Echocardiographic Report Patient Name: MYKEL VIGIL J : 1975 Study Date: 09/26/2024 12:50:45 PM Gender: M Tech: Location: [place] Ref Provider: PATRIA CURIEL Height(Cm): 175 BSA: 2.16 Weight(Kg): 95.7 Heart Rate: 94 BP: 128 / 84 Quality: Good Order Provider: APTRIA CURIEL PROCEDURES: Echocardiographic Report: Transthoracic echocardiogram with complete 2D, M-Mode, and color Doppler examination. With Strain Analysis. INDICATIONS: Coronary Artery Disease and Z95.5 Presence of coronary angioplasty implant and graft. MEASUREMENTS: 2D/MM Value Range Doppler Value Range EF Mod BP 61 % [ 52 - 72 ] ALVARO Vmax 2.39 cm2 [ 2.00 - 4.00 ] EF Teich MM 69 % [ 52 - 72 ] AV Mean PG 5 mmHg Estimated EF 65 % AV Peak [place] 1.48 m/s [ 1.00 - 1.70 ] LVIDd 2D 4.68 cm [ 4.20 - 5.80 ] AV Peak PG 9 mmHg LVIDd MM 4.67 cm [ 4.20 - 5.80 ] AV VTI 23.71 cm LVIDs 2D 3.08 cm [ 2.50 - 4.00 ] LVOT Diam 2.01 cm [ 1.70 - 2.10 ] LVIDs MM 2.85 cm [ 2.50 - 4.00 ] LVOT Peak [place] 1.12 m/s [ 0.70 - 1.10 ] LVPWd 2D 1.04 cm [ 0.60 - 1.00 ] LVOT VTI 18.94 cm LVPWd MM 1.21 cm [ 0.60 - 1.00 ] MV E [place] 0.78 m/s [ 0.60 - 1.30 ] IVSd 2D 1.20 cm [ 0.60 - 1.00 ] MV A [place] 0.56 m/s [ 1.00 - 1.20 ] IVSd MM 1.15 cm [ 0.60 - 1.00 ] MV Decel Time 167 msec [ 104 - 258 ] LA Dimension MM 3.29 cm [ 3.00 - 4.00 ] PV Peak [place] 1.41 m/s [ 0.40 - 0.80 ] AoR Diam MM 3.14 cm [ 3.10 - 3.70 ] TR Peak [place] 2.37 m/s [ 1.00 - 2.80 ] LA Volume Index 18 cc/m2 [ 16 - 34 ] TR Peak PG 22 mmHg RVSP 30.00 mmHg [ 10.00 - 36.00 ] Lateral E` 0.10 m/s [ 0.10 - 0.15 ] E` 0.07 m/s E/E` 8 2D/MM Value Range Doppler Value Range - FINDINGS: Interpretation Site: Exam was interpreted at [facility]. Left Ventricle: Normal left ventricular size. Normal global left ventricular systolic function. Normal left ventricular diastolic function. Ejection fraction is measured at 61 %. Ejection Fraction is visually estimated to be 65 %. Global Longitudinal Strain is -14 %. Right Ventricle: Normal right ventricular size. Left Atrium: The left atrium is normal in size. Right Atrium: The right atrium is normal in size. Atrial Septum: Normal atrial septum. Mitral Valve: Normal appearance of the mitral valve. Trivial regurgitation of the mitral valve. Aortic Valve: Normal appearance of the aortic valve. Tricuspid Valve: Normal appearance of the tricuspid valve. Estimated peak RVSP is 30 mmHg. Pulmonic Valve: Normal appearance of the pulmonic valve. Pericardium: Normal pericardium with no significant pericardial effusion. Aorta: Normal aortic root. IVC: Normal size and normal respiratory collapse consistent with normal right atrial pressure (<5 mmHg). Pulmonary Artery: Normal pulmonary artery size. CONCLUSIONS: Normal appearance of the mitral valve. Trivial regurgitation of the mitral valve. Otherwise normal study. Electronically Signed By: Kartik Gutierrez MD, [facility] 09/26/2024 2:45:15 PM CDT Procedure Note Kartik Gutierrez MD - 09/26/2024 [facility] Cardiology [address] [facility] [address], [place] [address] [address] [facility] [address], [place] [address] P:[phone] P:[phone] Echocardiographic Report Patient Name: MYKEL VIGIL J : 1975 Study Date: 09/26/2024 12:50:45 PM Gender: M Tech: Location: [place] Ref Provider: PATRIA CRUIEL Height(Cm): 175 BSA: 2.16 Weight(Kg): 95.7 Heart Rate: 94 BP: 128 / 84 Quality: Good Order Provider: PATRIA CURIEL PROCEDURES: Echocardiographic Report: Transthoracic echocardiogram with complete 2D, M-Mode, and color Dopplerexamination. With Strain Analysis. INDICATIONS: Coronary Artery Disease and Z95.5 Presence of coronary angioplasty implantand graft. MEASUREMENTS: 2D/MM Value Range Doppler ValueRange EF Mod BP 61 % [ 52 - 72 ] ALVARO Vmax 2.39cm2 [ 2.00 - 4.00 ] EF Teich MM 69 % [ 52 - 72 ] AV Mean PG 5mmHg Estimated EF 65 % AV Peak [place] 1.48m/s [ 1.00 - 1.70 ] LVIDd 2D 4.68 cm [ 4.20 - 5.80 ] AV Peak PG 9mmHg LVIDd MM 4.67 cm [ 4.20 - 5.80 ] AV VTI 23.71cm LVIDs 2D 3.08 cm [ 2.50 - 4.00 ] LVOT Diam 2.01 cm[ 1.70 - 2.10 ] LVIDs MM 2.85 cm [ 2.50 - 4.00 ] LVOT [place] 1.12m/s [ 0.70 - 1.10 ] LVPWd 2D 1.04 cm [ 0.60 - 1.00 ] LVOT VTI 18.94cm LVPWd MM 1.21 cm [ 0.60 - 1.00 ] MV E [place] 0.78m/s [ 0.60 - 1.30 ] IVSd 2D 1.20 cm [ 0.60 - 1.00 ] MV A [place] 0.56m/s [ 1.00 - 1.20 ] IVSd MM 1.15 cm [ 0.60 - 1.00 ] MV Decel Time 167msec [ 104 - 258 ] LA Dimension MM 3.29 cm [ 3.00 - 4.00 ] PV Peak [place] 1.41m/s [ 0.40 - 0.80 ] AoR Diam MM 3.14 cm [ 3.10 - 3.70 ] TR Peak [place] 2.37m/s [ 1.00 - 2.80 ] LA Volume Index 18 cc/m2 [ 16 - 34 ] TR Peak PG 22mmHg RVSP 30.00 mmHg [ 10.00 - 36.00 ] Lateral E` 0.10 m/s [ 0.10 - 0.15 ] E` 0.07 m/s E/E` 8 2D/MM Value Range Doppler ValueRange - FINDINGS: Interpretation Site: Exam was interpreted at [facility]. Left Ventricle: Normal left ventricular size. Normal global left ventricular systolicfunction. Normal left ventricular diastolic function. Ejection fraction is measured at 61%. Ejection Fraction is visually estimated to be 65 %. Global Longitudinal Strain is-14 %. Right Ventricle: Normal right ventricular size. Left Atrium: The left atrium is normal in size. Right Atrium: The right atrium is normal in size. Atrial Septum: Normal atrial septum. Mitral Valve: Normal appearance of the mitral valve. Trivial regurgitation of the mitralvalve. Aortic Valve: Normal appearance of the aortic valve. Tricuspid Valve: Normal appearance of the tricuspid valve. Estimated peak RVSP is 30mmHg. Pulmonic Valve: Normal appearance of the pulmonic valve. Pericardium: Normal pericardium with no significant pericardial effusion. Aorta: Normal aortic root. IVC: Normal size and normal respiratory collapse consistent with normal rightatrial pressure (<5 mmHg). Pulmonary Artery: Normal pulmonary artery size. CONCLUSIONS: Normal appearance of the mitral valve. Trivial regurgitation of the mitralvalve. Otherwise normal study. Electronically Signed By: Kartik Gutierrez MD, [facility] 09/26/2024 2:45:15 PM CDT Patria Curiel MD CV ECHO PROCEDURES Final Result from Last 3 Months Insurance [employer] [id number] COMMERCIAL GENERIC AETNA COMMERCIAL GENERIC Care Teams Framing Inspector Relationship Specialty Start Date End Date Buster Hylton MD PCP - General 10/18/17
--- OUTSIDE RECORDS SUMMARY | 2024-12-12 12:05 | XMS_ITS | Encounter Summary ---
Author Organization [facility] Healthcare Address [address] [place] [address] Care Team Providers Care Parachute Cushion Installer Name Role Phone Buster Hylton MD Primary Care Provider [phone] Encounter Details Date Type Department Care Team (Late st Contact Info) Description 06/04/2024 Orders Only [facility] Health Information Management [address] [place] [address] Myles Mcghee MD 1 [facility] [address] [address] Social History Tobacco Use Types Packs/Day Years Used Date Smoking Tobacco: Former Sex and Gender Information Value Date Recorded Sex Assigned at Not on file Legal Sex Male 3:03 AM ACCT EXEC Gender Identity Not on file Sexual Orientation [...] on filedocumented in this encounter Care Teams Parachute Cushion Installer Relationship Specialty Start Date End Date Buster Hylton MD PCP - General 10/18/17 documented as of this encounter
--- OUTSIDE RECORDS SUMMARY | 2024-12-12 12:05 | XMS_ITS | Referral Summary ---
Author Organization [facility] [address] [place] [address] [address] [place] [address] Care Team Providers Care Medical Aide Name Role Phone Buster Hylton MD Primary Care Provider Encounters Date Type Department Care Team Description 12/05/2024 Results Follow-Up [facility] Advanced Medicine 8th [place] [address] [place] [phone] Eddi Boss MD ECG 12 lead, Basic metabolic panel, CBC with auto differential, Additional followed-up results: 4 12/05/2024 3:50 PM CDT Lab [address] [address] NSTEMI (non-ST elevated myocardial infarction) (HCC); Mixed hyperlipidemia 12/05/2024 2:30 PM CDT Office Visit [facility] [address] [facility] Medical Office Building [address] [place] [phone] Eddi Boss MD Chest discomfort (Primary Dx); Mixed hyperlipidemia; NSTEMI (non-ST elevated myocardial infarction) (HCC) 11/24/2024 Telephone [facility] Cardiology [address] [facility] [address] [place] [address] Patria Curiel MD 11/15/2024 6:19 PM CDT - 11/15/2024 11:59 PM CDT Hospital Encounter [facility] [address] [place], [place] [id number] Discharge Disposition: Discharge to home or self care 11/10/2024 Telephone [facility] [address] [facility] 8th [place] [address] [place] [address] Eddi Boss MD 09/27/2024 Results Follow-Up [facility] Cardiology [address] [place] [phone] Margarette Christopher RN Transthoracic Echo (TTE) Complete W Doppler/CF 09/26/2024 1:00 PM CDT Ancillary Procedure [facility] Cardiology [address] [place] [address] Status post insertion of drug-eluting stent into right coronary artery for coronary artery disease from Last 3 Months Allergies No known active allergies Medications aspirin [...] (25 mg total) by mouth daily 025 Discontinued( erapy completed) atorvastatin (LIPITOR) 80 mg tabletIndicati ons:Coronary artery disease involving [place] coronary artery of [place] heart with angina pectoris Take 1 tablet (80 mg total) by mouth daily 30 tablet 08/04/19 025 Discontinued( erapy completed) evolocumab (Repatha SureClick) 140 mg/mL pen injector Inject 1 mL (140 mg total) under the skin every 14 (fourteen) days 2 mL 09/05/19 025 Discontinued Active Problems No known active problems Social History Tobacco Use Types Packs/Day Years Used Date Smoking Tobacco: Some Days Cigarettes Tobacco Cessation:Ready to Q uit: Not Asked; Counseling Given: Not Answered Sex and Gender Information Value Date Recorded Sex Assigned at Not on file 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 Department [place] [address] * (ABNORMAL) Differential, auto (12/05/2024 3:57 PM CDT) Pathologist [facility] Neutrophil abs 6.70(H) 1.50 - 6.50 K/cumm Imm gran abs 0.06 0.00 - 0.10 K/cumm [facility] Lymphocyte abs 2.93 0.80 - 3.30 K/cumm [facility] Monocyte abs 0.85(H) 0.20 - 0.80 K/cumm [facility] Eosinophil abs 0.36 0.00 - 0.50 K/cumm [facility] Basophil abs 0.10 0.00 - 0.10 K/cumm [facility] Neutrophil pct 61.0 % [facility] Comment: Interpretive Data Percent cell count reference ranges are not reported, since discordance with absolute values may lead to misinterpretation of CBC data. Current Interpretive Data was last revised on 2017. Imm gran pct 0.5 % [facility]K [facility] Comment: Interpretive Data Percent cell count reference ranges are not reported, since discordance with absolute values may lead to misinterpretation of CBC data. Current Interpretive Data was last revised on 2017. Lymphocyte pct 26.6 % [facility] Comment: Interpretive Data Percent cell count reference [...] on 2017. Eosinophil pct 3.3 % [facility] Comment: Interpretive Data Percent cell count reference ranges are not reported, since discordance with absolute values may lead to misinterpretation of CBC data. Current Interpretive Data was last revised on 2017. Basophil pct 0.9 % [facility] Comment: Interpretive Data Percent cell count reference ranges are not reported, since discordance with absolute values may lead to misinterpretation of CBC data. Current Interpretive Data was last revised on 2017. Blood 12/05/2024 3:57 PM CDT 12/05/2024 4:44 PM CDT us Eddi Boss MD LAB BLOOD ORDERABLES Final Re sult [facility] [address] [facility]. [place] [address] * Pro B-type natriuretic peptide [...] et.al. Eur Heart J. 2006:27:330-337. 2. Aly OCHOA, Morena LOPEZ. J. AM Caro Cardiol: Cardiovasc Imag. 2009;2: 216- 225. Interpretive Data Last Revised Date: 2018. Blood 12/05/2024 3:57 PM CDT 12/05/2024 4:44 PM CDT Eddi Boss MD LAB BLOOD ORDERABLES Final Re sult Performing Organization Address City/[facility] Co de Phone Number [facility] [address] [facility] Department [place] [address] * (ABNORMAL) CBC with auto differential (12/05/2024 3:57 PM CDT) WBC 11.00(H) 3.80 - 9.90 K/cumm Hgb 17.8(H) 13.0 - 17.5 g/dL [facility] Hct 51.4(H) 38.9 - 50.3 % [facility] Plt 310 150 - 400 K/cumm [facility] MPV 9.2 9.1 - 12.3 fL [facility] RBC 5.70 4.30 - 5.80 M/cumm [facility] MCV 90.2 81.3 - 96.4 fL [facility] MCH 31.2 27.1 - 33.3 pg [facility] MCHC 34.6 32.3 - 35.7 g/dL [facility] RDW CV 13.3 11.1 - 14.9 % [facility] RDW SD 43.6 35.7 - 48.1 fL [facility] NRBC abs 0.00 0.00 - 0.01 K/cumm [facility] Blood 12/05/2024 3:57 PM CDT 12/05/2024 4:44 PM CDT Eddi Boss MD LAB BLOOD ORDERABLES Final Re sult Performing Organization Address [facility]/State/ZIP Co de Phone Number [facility] [address] [facility]. Department [place] [address] * (ABNORMAL) Cholesterol, LDL, direct (12/05/2024 3:57 [...] last revised on 2018. Testing performed by: [facility], [address] [place]., [address] Blood 12/05/2024 3:57 PM CDT 12/06/2024 11:05 AM CDT Narrative [facility] - 12/06/2024 11:55 AM CDT Cholesterol, LDL, direct reflexed based on Elevated Triglyceride (>400) us Eddi Boss MD LAB BLOOD ORDERABLES Final Re sult [facility] [address] [facility]. Department [place] [address] * (ABNORMAL) Lipid panel (12/05/2024 3:57 PM [...] mg/dL High: >160 mg/dL Calculated using the Hong LDL-C estimating equation. This equation was implemented on 2024. Prior to this date LDL-C was estimated using the Friedewald equation. Literature References: 1. Expert Panel on Integrated Guidelines for Cardiovascular Health and Risk Reduction in Children and Adolescents. Pediatrics 2011;128:S213 2. NCEP Expert Panel. Circulation 2004;110:227 3. Hal M et al. RODRIGO Cardiol. 2020 November 09;5(5):540-548. doi: 10.1001/jamacardio.2020.0013 Current Interpretive Data was last revised on 2024. Non-HDL Cholesterol 300 mg/dL [facility] Comment: Interpretive Data Ages < or = [...] last revised on 2018. Chol/HDL ratio 9 [facility] Blood 12/05/2024 3:57 PM CDT 12/05/2024 4:44 PM CDT us Eddi Boss MD LAB BLOOD ORDERABLES Final Re sult [facility] [address] [facility]. Department [place] [address] * Basic metabolic panel (12/05/2024 3:57 PM CDT) [facility] Sodium 139 135 - 145 mmol/L Potassium, pl 3.9 3.3 - 4.9 mmol/L [facility] Chloride 103 97 - 110 mmol/L [facility] CO2 22 22 - 32 mmol/L [facility] Anion gap 14 2 - 15 mmol/L [facility] BUN 12 6 - 25 mg/dL [facility] Creatinine 0.94 0.80 - 1.30 mg/dL [facility] Glucose 111 70 - 199 mg/dL [facility] Comment: Interpretive Data Fasting glucose >/= 126 [...] 2022. Calcium 9.3 8.5 - 10.3 mg/dL VI[facility] DC Blood 12/05/2024 3:57 PM CDT 12/05/2024 4:44 PM CDT Eddi Boss MD LAB BLOOD ORDERABLES Final Re sult Performing Organization Address [facility] de Phone Number [facility] [address] [facility] [place] [address] * ECG 12 lead (12/05/2024 2:02 PM CDT) Eddi Boss MD ECG ORDERABLES Edited Result - Final * IR Outside Reference (11/15/2024 6:19 PM CDT) Impressions RAD[facility]PACS_[facility] - 11/15/2024 6:19 PM CDT These images are for Reference purposes only and have not been reviewed by [facility]. There will be no report generated by a [facility] Radiologist. Narrative RAD_PACS_[facility] - 11/15/2024 6:19 PM CDT EXAMINATION: Images For Reference Purposes Only Eddi Boss MD IMG IR PROCEDURES Final Resul t Performing Organization Address [facility] de Phone Number RAD_PACS_[facility] * TRANSTHORACIC ECHO (TTE) COMPLETE W DOPPLER/CF WO CONTRAST (09/26/2024 1:09 PM CDT) LV EF 65 % CONS SCIMAGE Anatomical Region Laterality Modality Ultrasound 09/26/2024 12:5 0 PM CDT Narrative 09/26/2024 2:45 PM CDT [facility] Medical Group Cardiology [address], [place] [address] [address], [place] [address] P:[phone] P:[phone] Echocardiographic Report Patient Name: MYKEL VIGIL J : 1975 Study Date: 09/26/2024 12:50:45 PM Gender: M Tech: Location: [place] Ref Provider: PATRIA CURIEL Height(Cm): 175 BSA: [...] Site: Exam was interpreted at [facility]. Left Ventricle: Normal left ventricular size. [...] study. Electronically Signed By: Kartik Gutierrez MD, [facility] 09/26/2024 2:45:15 PM CDT Procedure Note Kartik Gutierrez MD - 09/26/2024 [facility] Medical Group Cardiology [address] [facility] [address], [place] [address] [address] [facility] [address], [place] [address] P:[phone] P:[phone] Echocardiographic Report Patient Name: MYKEL VIGIL J : 1975 Study Date: 09/26/2024 12:50:45 PM Gender: M Tech: Location: [facility] Provider: PATRIA CURIEL Height(Cm): 175 BSA: 2.16 [...] Site: Exam was interpreted at [facility]. Left Ventricle: Normal left ventricular size. [...] study. Electronically Signed By: Kartik Gutierrez MD, [facility] 09/26/2024 2:45:15 PM CDT Patria Curiel MD CV ECHO PROCEDURES Final Result from Last 3 Months Insurance [employer] [id number] [facility] [employer] [employer] [employer] HMO/PPO Address: [address] [address] COMMERCIAL GENERIC AETNA COMMERCIAL GENERIC Care Teams Medical Aide Relationship Specialty Start Date End Date Buster Hylton MD PCP - General 10/18/17
--- OUTSIDE RECORDS SUMMARY | 2024-12-12 12:05 | XMS_ITS | Encounter Summary ---
Author Organization [facility] Healthcare Address [address] [place] [address] Care Team Providers Care Taxation Economist Name Role Phone Buster Hylton MD Primary Care Provider [phone] Encounter Details Date Type Department Care Team (Late st Contact Info) Description 07/07/2024 Orders Only [facility] Health Information Management [address] [place] [address] Joao Curiel MD [address] [place] [address] Social History Tobacco Use Types Packs/Day Years Used Date Smoking Tobacco: Some Days Cigarettes Sex and Gender Information Value Date Recorded Sex Assigned at Not on file Legal Sex Male 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
--- OUTSIDE RECORDS SUMMARY | 2024-12-12 12:05 | XMS_ITS | Encounter Summary ---
Author Organization [facility] Address [address] [place] [address] Phone Care Team Providers Care Mirror Painter Name Role Phone Buster Hylton MD Primary Care Provider [phone] Encounter Details Date Type Department Care Team (Late st Contact Info) Description 11/10/2024 Telephone [facility] Cardiology [address] 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 Requested records from [facility] * Telephone Encounter - Renita Snowden - 11/10/2024 12:49 PM CDT Diagnosis/Reason for Appointment: INTERMITTENT CHEST DISCOMFORT DISCUSS MEDICATIONS -EXPERIENCE SIDE EFFECTS ATORVASTATIN 90MG every day - NOT ABLE TO TOLERATE BP ISSUES ERNESOT ISSUES ESTABLISH CARE Referring Physician: SELF Ref Ph: If Referring MD is not PCP, list specialty: Triage Questions Yes No Who/Where/When/Notes Are you actively undergoing cancer treatments including radiation, chemotherapy, or immunotherapy or are these planned in the near future? [] [x] If 'Yes', Schedule first available with Cardio-Oncology If yes where are you being treated? Have you ever seen a Cone Machine Operator in an office setting? [x] [] DR PATRIA SAHU [facility] IN [place], [place] PT LAST SEEN IN SEPTEMBER 2024 PT WANTING TO TRANSFER CARE IF SCHEDULING PATIENT WITH MATERNAL Have you had a baby in the last year or are you ? (If yes send to Dr. Small for review) [] [] Have you had heart or blood pressure problems during a previous ? (If yes send to Dr. Small for review) [] [] Dr. Iman Kennedy Patients only: Are you a hemodialysis or peritoneal dialysis patient? (If yes then patient must be referred from another MD, DO NOT SCHEDULE) [] [] Do you regularly exercise, or play any competitive or recreational sports? (If yes proceed to next question) [] [x] Are your symptoms or concerns associated with this exercise or activity? (If yes schedule in [facility]) [] [] Patient History Questions Yes No Where/When/Notes Have you EVER been hospitalized for ANY cardiac issue? [x] [] JUN 04, 2025 [facility] -STENTPLACEMENT Jul -STENT PLACEMENT -90% BLOCKAGE Have you ever had any cardiac testing, imaging, or procedures? (Testing - echo, EKG, stress) (Imaging - Cardiac MRI, CT or calcium scoring) (Procedure - Ablation, Cardioversion, CABG, Cath) [x] [] [facility] ECHO EKG CARDIAC IMAGING CATH Have you ever had a sleep study? [] [x] Do you have a device? If yes what type? (Pacemaker, Defibrillator, Implanted Loop Recorder) [] [x] If yes, where and when was device put in? Auto Body Repair Estimator? ([employer], [employer], [employer]) Appointment Date: 12/05/24 Provider: DAHIANA Location: [facility] [x] Confirm appt date, time, provider and location. [x] Advise pt to arrive 15- 20 min early. [x] Advise patient to bring medications/list, photo ID and insurance card [x] Advise of New PatientPacket being mailed to them. documented in this encounter Plan of Treatment Not on file documented as of this encounter Visit Diagnoses Not on filedocumented in this encounter Care Teams Mirror Painter Relationship Specialty Start Date End Date Buster Hylton MD PCP - General 10/18/17 documented as of this encounter
[2024-12-12 12:09] VITALS: BP 163/97; PULSE 103; RESP 20; TEMP 36.6; O2SAT 100
--- NOTE | 2024-12-12 12:37 | PC.NURSE ---
yesterday 12/11 switched from brilinta to plavix, took 8 pill loading dose yesterday, blew nose today, bleeding started at that time
--- NOTE | 2024-12-12 13:23 | PC.NURSE ---
Patient took nasal clamp off because it was too uncomfortable
--- OUTSIDE RECORDS SUMMARY | 2024-12-12 13:24 | XMS_ITS | Encounter Summary ---
Author Organization [facility] Healthcare Address [address] [place] [address] Care Team Providers Care Director Audience Marketing Name Role Phone Buster Hylton MD Primary Care Provider [phone] Encounter Details Date Type Department Care Team (Late st Contact Info) Description 06/04/2024 Orders Only [facility] Health Information Management [address] [place] [address] Myles Mcghee MD 1 [facility] [address] [address] Social History Tobacco Use Types Packs/Day Years Used Date Smoking Tobacco: Former Sex and Gender Information Value Date Recorded Sex Assigned at Not on file 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
--- OUTSIDE RECORDS SUMMARY | 2024-12-12 13:24 | XMS_ITS | Encounter Summary ---
Author Organization [facility] Address [address] [place] [address] Phone Care Team Providers Care Chief Steward/Stewardess Name Role Phone Buster Hylton MD Primary Care Provider + [phone] Encounter Details Date Type Department Care Team (Late st Contact Info) Description 11/10/2024 Telephone [facility] [address] [facility] Advanced Medicine 8th [place] [address] [place] [phone] Eddi Boss MD [address] [facility] [address] [place], [place] [id number] Social History Tobacco Use Types Packs/Day Years Used Date Smoking Tobacco: Some Days Cigarettes Sex and Gender Information Value Date Recorded Sex Assigned at Not on file Legal Sex Male 3:03 AM DIPPER FISH Gender Identity Not on file Sexual Orientation Not on file documented as of this encounter Miscellaneous Notes * Telephone Encounter - Laura Mccarty - 11/10/2024 2:27 PM CDT Echo in Epic. Requested records from [facility] * Telephone Encounter - Renita Snowden - 11/10/2024 12:49 PM CDT Diagnosis/Reason for Appointment: INTERMITTENT CHEST DISCOMFORT DISCUSS MEDICATIONS -EXPERIENCE SIDE EFFECTS ATORVASTATIN 90MG every day - NOT ABLE TO TOLERATE BP ISSUES ERNESTO ISSUES ESTABLISH CARE Referring Physician: SELF Ref Ph: If Referring MD is not PCP, list specialty: Triage Questions Yes No Who/Where/When/Notes Are you actively undergoing cancer treatments including radiation, chemotherapy, or immunotherapy or are these planned in the near future? [] [x] If 'Yes', Schedule first available with Cardio-Oncology If yes where are you being treated? Have you ever seen a Marketing Project Coordinator in an office setting? [x] [] DR PATRIA SAHU [facility] IN [place], [place] PT LAST SEEN IN SEPTEMBER 2024 [...] cardiac issue? [x] [] JUN 04, 2025 [facility] -STENTPLACEMENT Jul -STENT PLACEMENT -90% BLOCKAGE Have you ever had any cardiac testing, imaging, or procedures? (Testing - echo, EKG, stress) (Imaging - Cardiac MRI, CT or calcium scoring) (Procedure - Ablation, Cardioversion, CABG, Cath) [x] [] [facility] ECHO EKG CARDIAC IMAGING CATH Have you ever had a sleep study? [] [x] Do you have a device? If yes what type? (Pacemaker, Defibrillator, Implanted Loop Recorder) [] [x] If yes, where and when was device put in? [place]? ([employer], [employer], [employer]) Appointment Date: 12/05/24 Provider: DAHIANA Location: [facility] [x] Confirm appt date, time, provider and location. [x] Advise pt to arrive 15- 20 min early. [x] Advise patient to bring medications/list, photo ID and insurance card [x] Advise of New PatientPacket being mailed to them. documented in this encounter Plan of Treatment Not on file documented as of this encounter Visit Diagnoses Not on filedocumented in this encounter Care Teams Chief Steward/Stewardess Relationship Specialty Start Date End Date Buster Hylton MD PCP - General 10/18/17 documented as of this encounter
--- OUTSIDE RECORDS SUMMARY | 2024-12-12 13:24 | XMS_ITS | Encounter Summary ---
Author Organization [facility] Healthcare Address [address] [place] [address] Care Team Providers Care Programming Coordinator Name Role Phone Buster Hylton MD Primary Care Provider [phone] Encounter Details Date Type Department Care Team (Late st Contact Info) Description 07/31/2024 Orders Only [facility] Health Information Management [address] [place] [address] Amirah Dueñas MD [address] [facility] [address] [place] [address] Social History Tobacco Use Types Packs/Day Years Used Date Smoking Tobacco: Some Days Cigarettes Sex and Gender Information Value Date Recorded Sex Assigned at Not on file 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
--- OUTSIDE RECORDS SUMMARY | 2024-12-12 13:24 | XMS_ITS | Encounter Summary ---
Author Organization [facility] Address [address] [place] [address] Phone Care Team Providers Care Apartment Maintenance Technician Name Role Phone Buster Hylton MD Primary Care Provider [phone] Encounter Details Date Type Department Care Team (Late st Contact Info) Description 12/12/2024 Telephone [facility] Cardiology [address] [facility] Advanced Medicine 8th [place] [address] [place] [address] Eddi Boss MD [address] [facility] [address] [place], [place] [id number] Social History Tobacco Use Types Packs/Day Years Used Date Smoking Tobacco: Some Days Cigarettes Sex and Gender Information Value Date Recorded Sex Assigned at Not on file Legal Sex Male 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 Pts spouse would like to speak to a nurse. documented in this encounter Plan of Treatment Not on file documented as of this encounter Visit Diagnoses Not on filedocumented in this encounter Care Teams Apartment Maintenance Technician Relationship Specialty Start Date End Date Buster Hylton MD PCP - General 10/18/17 documented as of this encounter
--- OUTSIDE RECORDS SUMMARY | 2024-12-12 13:24 | XMS_ITS | Clinical Summary ---
Author Organization [facility] [address] Address [address] [place] [address] Care Team Providers Care Cloth Reeler Name Role Phone Buster Hylton MD Primary Care Provider [phone] Allergies No known active allergies Medications aspirin [...] 80 mg tabletIndicati ons:Coronary artery disease involving [place] coronary artery of [place] heart with angina pectoris Take 1 tablet (80 mg total) by mouth daily 30 tablet 08/04/19 025 Discontinued( erapy completed) evolocumab (Repatha SureClick) 140 mg/mL pen injector Inject 1 mL (140 mg total) under the skin every 14 (fourteen) days 2 mL 09/05/19 025 Discontinued Active Problems No known active problems Encounters Date Type Department Care Team Description 12/12/2024 Telephone [facility] [address] [facility] 8th [place] [address] [place] [address] Eddi Boss MD 12/05/2024 3:50 PM CDT Lab [address] [address] NSTEMI (non-ST elevated myocardial infarction) (HCC); Mixed hyperlipidemia 12/05/2024 2:30 PM CDT Office Visit [facility] Medical Office Building [address] [place] [address] Eddi Boss MD Chest discomfort (Primary Dx); Mixed hyperlipidemia; NSTEMI (non-ST elevated myocardial infarction) (HCC) 12/05/2024 Results Follow-Up [facility] [address] [facility] Advanced Medicine 8th [place] [address] [place] [address] Eddi Boss MD ECG 12 lead, Basic metabolic panel, CBC with auto differential, Additional followed-up results: 4 11/24/2024 Telephone [facility] Cardiology [address] [facility] [address] [place] [address] Patria Curiel MD 11/15/2024 6:19 PM CDT - 11/15/2024 11:59 PM CDT Hospital Encounter [facility] [address] [place] [address] Discharge Disposition: Discharge to home or self care 11/10/2024 Telephone [facility] [address] 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 73 m2 Comment: [...] BLOOD ORDERABLES Final Re sult VIK GREGGWCH [address] [facility]. Department [place] [address] * (ABNORMAL) Differential, auto (12/05/2024 3:57 PM CDT) Neutrophil abs 6.70(H) 1.50 - 6.50 K/cumm Imm gran abs 0.06 0.00 - 0.10 K/cumm LYNDSAYNER [facility] Lymphocyte abs 2.93 0.80 - 3.30 K/cumm CERELLY [facility] Monocyte abs 0.85(H) 0.20 - 0.80 K/cumm CERELLY [facility] Eosinophil abs 0.36 0.00 - 0.50 K/cumm [facility] Basophil abs 0.10 0.00 - 0.10 K/cumm [facility]K [facility] Neutrophil pct 61.0 % [facility] Comment: Interpretive Data Percent cell count reference ranges are not reported, since discordance with absolute values may lead to misinterpretation of CBC data. Current Interpretive Data was last revised on 2017. Imm gran pct 0.5 % [facility] Comment: Interpretive Data Percent cell count reference ranges are not reported, since discordance with absolute values may lead to misinterpretation of CBC data. Current Interpretive Data was last revised on 2017. Lymphocyte pct 26.6 % [facility] Comment: Interpretive Data Percent cell count reference ranges are not reported, since discordance with absolute values may lead to misinterpretation of CBC data. Current Interpretive Data was last revised on 2017. Monocyte pct 7.7 % [facility] Comment: Interpretive Data Percent cell count reference ranges are not reported, since discordance with absolute values may lead to misinterpretation of CBC data. Current Interpretive Data was last revised on 2017. Eosinophil pct 3.3 % [facility] Comment: Interpretive Data Percent cell count reference ranges are not reported, since discordance with absolute values may lead to misinterpretation of CBC data. Current Interpretive Data was last revised on 2017. Basophil pct 0.9 % [facility] Comment: Interpretive Data Percent cell count reference ranges are not reported, since discordance with absolute values may lead to misinterpretation of CBC data. Current Interpretive Data was last revised on 2017. Blood 12/05/2024 3:57 PM CDT 12/05/2024 4:44 PM CDT us Eddi Boss MD LAB BLOOD ORDERABLES Final Re sult VIK GREGGWCH [address] [facility]. Department of [place] [address] * Pro B-type natriuretic peptide (12/05/2024 3:57 [...] as advanced age. - References: 1. Jayden JL et.al. Eur Heart J. 2006:27:330-337. 2. Aly RW, Morena LOPEZ. J. AM Caro Cardiol: Cardiovasc Imag. 2009;2: 216- 225. Interpretive Data Last Revised Date: 2018. Blood 12/05/2024 3:57 PM CDT 12/05/2024 4:44 PM CDT us Eddi Boss MD LAB BLOOD ORDERABLES Final Re sult LYNDSAYDXI BJWCH [address] [facility]. Department of [place]gent [place] [address] * (ABNORMAL) CBC with auto differential (12/05/2024 3:57 PM CDT) WBC 11.00(H) 3.80 - 9.90 K/cumm Hgb 17.8(H) 13.0 - 17.5 g/dL VIK GREGGWJOSH Hct 51.4(H) 38.9 - 50.3 % VIK DC Plt 310 150 - 400 K/cumm VIK GREGGWJOSH MPV 9.2 9.1 - 12.3 fL VIK DC RBC 5.70 4.30 - 5.80 M/cumm VIK GREGGWJOSH MCV 90.2 81.3 - 96.4 fL VIK DC MCH 31.2 27.1 - 33.3 pg VIK GREGGJOSH MCHC 34.6 32.3 - 35.7 g/dL VIK GREGGWJOSH RDW CV 13.3 11.1 - 14.9 % VIK GREGGJOSH RDW SD 43.6 35.7 - 48.1 fL VIK DC NRBC abs 0.00 0.00 - 0.01 K/cumm VIK DC Blood 12/05/2024 3:57 PM CDT 12/05/2024 4:44 PM CDT us Eddi Boss MD LAB BLOOD ORDERABLES Final Re sult VIK MELENDEZCH [address] [facility]. Department of Laboratories [place], [place] [id number] * (ABNORMAL) Cholesterol, LDL, direct (12/05/2024 3:57 [...] last revised on 2018. Testing performed by: [facility], [address], [place]., [address] Blood 12/05/2024 3:57 PM CDT 12/06/2024 11:05 AM CDT Narrative VIK MELENDEZCH - 12/06/2024 11:55 AM CDT Cholesterol, LDL, direct reflexed based on Elevated Triglyceride (>400) us Eddi Boss MD LAB BLOOD ORDERABLES Final Re sult [facility] [address] [facility]. Department [place] [address] * (ABNORMAL) Lipid panel (12/05/2024 3:57 PM [...] NCEP Expert Panel. Circulation 2004;110:227 3. Hal Juarez al. RODRIGO Cardiol. 2019November 09;5(5):540-548. doi: 10.1001/jamacardio.2020.0013 [...] last revised on 2018. Chol/HDL ratio 9 CERNER [facility] Blood 12/05/2024 3:57 PM CDT 12/05/2024 4:44 PM CDT Eddi Boss MD LAB BLOOD ORDERABLES Final Re sult Performing Organization Address [facility] [place] [address] [facility] Department [place] [address] * Basic metabolic panel (12/05/2024 3:57 PM CDT) [facility] Sodium 139 135 - 145 mmol/L [...] Calcium 9.3 8.5 - 10.3 mg/dL CERNER W Blood 12/05/2024 3:57 PM CDT 12/05/2024 4:44 PM CDT Eddi Boss MD LAB BLOOD ORDERABLES Final Re sult Performing Organization Address [facility]/ZIP Co de Phone Number VIK MELENDEZCH [address] [facility]. Department [place] [address] * ECG 12 lead (12/05/2024 2:02 PM CDT) Eddi Boss MD ECG ORDERABLES Edited Result - Final * IR Outside Reference (11/15/2024 6:19 PM CDT) Impressions [facility] - 11/15/2024 6:19 PM CDT These images are for Reference purposes only and have not been reviewed by [facility]. There will be no report generated by a [facility]iologist. Narrative [facility] - 11/15/2024 6:19 PM CDT EXAMINATION: Images For Reference Purposes Only Eddi Boss MD IMG IR PROCEDURES Final Resul t [facility] * TRANSTHORACIC ECHO (TTE) COMPLETE W DOPPLER/CF WO CONTRAST (09/26/2024 1:09 PM CDT) LV EF 65 % CONS SCIMAGE Anatomical Region Laterality Modality Ultrasound 09/26/2024 12:5 0 PM CDT Narrative 09/26/2024 2:45 PM CDT [facility] Cardiology [address] [facility] [address], [place] [address] [address] [facility] [address], [place] [address] P:[phone] P:[phone] Echocardiographic Report Patient Name: MYKEL VIGIL J : 1975 Study Date: 09/26/2024 12:50:45 PM Gender: M Tech: Location: [place] Ref Provider: PATRIA CURIEL Height(Cm): 175 BSA: [...] Site: Exam was interpreted at [facility]. Left Ventricle: Normal left ventricular size. [...] study. Electronically Signed By: Kartik Gutierrez MD, [facility] 09/26/2024 2:45:15 PM CDT Procedure Note Kartik Gutierrez MD - 09/26/2024 [facility] Cardiology [address] [facility] [address], [place] [address] [address] [facility] [address], [address], [place] [address] P:[phone] P:[phone] Echocardiographic Report Patient Name: MYKEL VIGIL J : 1975 Study Date: 09/26/2024 12:50:45 PM Gender: M Tech: Location: [facility] Provider: PATRIA CURIEL Height(Cm): 175 BSA: [...] Site: Exam was interpreted at [facility]. Left Ventricle: Normal left ventricular size. [...] study. Electronically Signed By: Kartik Gutierrez MD, [facility] 09/26/2024 2:45:15 PM CDT Patria Curiel MD CV ECHO PROCEDURES Final Result from Last 3 Months Insurance [employer] [id number] COMMERCIAL GENERIC [employer] COMMERCIAL GENERIC Care Teams Cloth Reeler Relationship Specialty Start Date End Date Buster Hylton MD PCP - General 10/18/17
--- OUTSIDE RECORDS SUMMARY | 2024-12-12 13:24 | XMS_ITS | Referral Summary ---
Author Organization [facility] [address] [place] [address] [address] [place] [address] Care Team Providers Care Informatics Nurse Specialist Name Role Phone Buster Hylton MD Primary Care Provider Encounters Date Type Department Care Team Description 12/12/2024 Telephone [facility] Cardiology [facility] Advanced Medicine 8th [place] [address] [place] [address] Eddi Boss MD 12/05/2024 Results Follow-Up [facility] [address] [facility] 8th [place] [address] [place] [address] Eddi Boss MD ECG 12 lead, Basic metabolic panel, CBC with auto differential, Additional followed-up results: 4 12/05/2024 3:50 PM CDT Lab [facility] [address] [place] [address] NSTEMI (non-ST elevated myocardial infarction) (HCC); Mixed hyperlipidemia 12/05/2024 2:30 PM CDT Office Visit [facility] Cardiology [address] [facility] Medical Office Building [address] [place] [address] Eddi Boss MD Chest discomfort (Primary Dx); Mixed hyperlipidemia; NSTEMI (non-ST elevated myocardial infarction) (HCC) 11/24/2024 Telephone [facility] Cardiology [address] [place] [address] Patria Curiel MD 11/15/2024 6:19 PM CDT - 11/15/2024 11:59 PM CDT Hospital Encounter [facility] ([facility]) [address] [place] [address] Discharge Disposition: Discharge to home or self care 11/10/2024 Telephone [facility]iology [address] [facility] 8th [place] [address] [place] [address] Eddi Boss MD 09/27/2024 Results Follow-Up [facility] Cardiology [address] [place] [address] Margarette Christopher RN Transthoracic Echo (TTE) Complete W Doppler/CF 09/26/2024 1:00 PM CDT Ancillary Procedure [facility] Cardiology [address] [place] [address] Status post insertion of drug-eluting stent into [...] day then 75 mg daily 38 tablet 12/07/19 25 Active ticagrelor (BRILINTA) 90 mg tablet Take 1 tablet (90 mg total) by mouth 2 (two) times a day 025 Discontinued(Al ternate therapy) losartan (COZAAR) 25 mg tablet Take 1 tablet (25 mg total) by mouth daily 025 Discontinued( erapy completed) atorvastatin (LIPITOR) 80 mg tabletIndicati ons:Coronary artery disease involving [place] coronary artery of [place] heart with angina pectoris Take 1 tablet [...] on file 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 [place] [address] * (ABNORMAL) Differential, auto (12/05/2024 3:57 PM [...] on 2017. Basophil pct 0.9 % VIK MELENDEZCH Comment: Interpretive Data Percent cell count reference ranges are not reported, since discordance with absolute values may lead to misinterpretation of CBC data. Current Interpretive Data was last revised on 2017. Blood 12/05/2024 3:57 PM CDT 12/05/2024 4:44 PM CDT us Eddi Boss MD LAB BLOOD ORDERABLES Final Re sult VIK GREGGWCH [address] [facility]. [place] [address] * Pro B-type natriuretic peptide (12/05/2024 3:57 [...] LAB BLOOD ORDERABLES Final Re sult [facility] [address] [facility]. [place] [address] * (ABNORMAL) CBC with auto differential (12/05/2024 3:57 PM CDT) Pathologist [facility] WBC 11.00(H) 3.80 - 9.90 K/cumm Hgb 17.8(H) 13.0 - 17.5 g/dL [facility] Hct 51.4(H) 38.9 - 50.3 % [facility] Plt 310 150 - 400 K/cumm [facility] MPV 9.2 9.1 - 12.3 fL [facility] RBC 5.70 4.30 - 5.80 M/cumm [facility] MCV 90.2 81.3 - 96.4 fL [facility] MCH 31.2 27.1 - 33.3 pg [facility] MCHC 34.6 32.3 - 35.7 g/dL [facility] RDW CV 13.3 11.1 - 14.9 % [facility] RDW SD 43.6 35.7 - 48.1 fL [facility] NRBC abs 0.00 0.00 - 0.01 K/cumm [facility] Blood 12/05/2024 3:57 PM CDT 12/05/2024 4:44 PM CDT Eddi Boss MD LAB BLOOD ORDERABLES Final Re sult Performing Organization Address [facility] Co de Phone Number VIK GREGGWCH [address] [facility]. [facility] [place] [address] * (ABNORMAL) Cholesterol, LDL, direct (12/05/2024 3:57 [...] last revised on 2018. Testing performed by: [facility], [address] [place]., [address] Blood 12/05/2024 3:57 PM CDT 12/06/2024 11:05 AM CDT Narrative VIK [facility] - 12/06/2024 11:55 AM CDT Cholesterol, LDL, direct reflexed based on Elevated Triglyceride (>400) us Eddi Boss MD LAB BLOOD ORDERABLES Final Re sult Performing Organization Address [facility] Co de Phone Number VIK BJ[facility] [address] [facility]. [facility] [place] [address] * (ABNORMAL) Lipid panel (12/05/2024 3:57 PM [...] NCEP Expert Panel. Circulation 2004;110:227 3. Hal Bellamy et al. RODRIGO Cardiol. 2019November 09;5(5):540-548. doi: 10.1001/jamacardio.2020.0013 Current Interpretive Data was last revised on 2024. Non-HDL Cholesterol 300 mg/dL VIK MELENDEZ Comment: Interpretive Data Ages < or = [...] revised on 2018. Chol/HDL ratio 9 VIK MELENDEZ Blood 12/05/2024 3:57 PM CDT 12/05/2024 4:44 PM CDT Eddi Boss MD LAB BLOOD ORDERABLES Final Re sult VIK GREGGCH [address] [facility]. [place] [address] * Basic metabolic panel (12/05/2024 3:57 PM CDT) Sodium 139 135 - 145 mmol/L Potassium, pl 3.9 3.3 - 4.9 mmol/L C[facility]ER [facility] Chloride 103 97 - 110 mmol/L C[facility] CO2 22 22 - 32 mmol/L [facility] Anion gap 14 2 - 15 mmol/L [facility] BUN 12 6 - 25 mg/dL [facility] Creatinine 0.94 0.80 - 1.30 mg/dL [facility] Glucose 111 70 - 199 mg/dL [facility] Comment: Interpretive Data Fasting glucose >/= [...] Calcium 9.3 8.5 - 10.3 mg/dL [facility] Blood 12/05/2024 3:57 PM CDT 12/05/2024 4:44 PM CDT Eddi Boss MD LAB BLOOD ORDERABLES Final Re sult Performing Organization Address [facility] de Phone Number [facility] BJ[facility] [address] [facility] [place] [address] * ECG 12 lead (12/05/2024 2:02 PM CDT) Eddi Boss MD ECG ORDERABLES Edited Result - Final * IR Outside Reference (11/15/2024 6:19 PM CDT) Impressions [facility] - 11/15/2024 6:19 PM CDT These images are for Reference purposes only and have not been reviewed by [facility]. There will be no report generated by a [facility] Radiologist. Narrative [facility] - 11/15/2024 6:19 PM CDT EXAMINATION: Images For Reference Purposes Only Eddi Boss MD IMG IR PROCEDURES Final Resul t Performing Organization Address [facility] de Phone Number [facility] * TRANSTHORACIC ECHO (TTE) COMPLETE W DOPPLER/CF WO CONTRAST (09/26/2024 1:09 PM CDT) LV EF 65 % CONS SCIMAGE Anatomical Region Laterality Modality Ultrasound 09/26/2024 12:5 0 PM CDT Narrative 09/26/2024 2:45 PM CDT [facility] Cardiology [address] [facility] [address], [place] [address] [address] [facility] [address], [place] [address] P:[phone] P:[phone] Echocardiographic Report Patient Name: MYKEL VIGIL J : 1975 Study Date: 09/26/2024 12:50:45 PM Gender: M Tech: Location: [place] Ref Provider: PATRIA CURIEL Height(Cm): 175 BSA: [...] FINDINGS: Interpretation Site: Exam was interpreted at [facility]. Left Ventricle: Normal left ventricular size. Normal [...] study. Electronically Signed By: Kartik Gutierrez MD, [facility] 09/26/2024 2:45:15 PM CDT Procedure Note Kartik Gutierrez MD - 09/26/2024 [facility] Cardiology [address] [facility] [address] [address] [address] [facility] [address], [place], [place] [address] P:[phone] P:[phone] Echocardiographic Report Patient Name: MYKEL VIGIL J : 1975 Study Date: 09/26/2024 12:50:45 PM Gender: M Tech: Location: [facility] Provider: PATRIA CURIEL Height(Cm): 175 BSA: [...] FINDINGS: Interpretation Site: Exam was interpreted at [facility]. Left Ventricle: Normal left ventricular size. Normal [...] study. Electronically Signed By: Kartik Gutierrez MD, [facility] 09/26/2024 2:45:15 PM CDT Patria Curiel MD CV ECHO PROCEDURES Final Result from Last 3 Months Insurance [employer] S AND [facility] [id number] COMMERCIAL GENERIC AET[employer] COMMERCIAL GENERIC Care Teams Informatics Nurse Specialist Relationship Specialty Start Date End Date Buster Hylton MD PCP - General 10/18/17
--- OUTSIDE RECORDS SUMMARY | 2024-12-12 13:24 | XMS_ITS | Clinical Summary ---
Author Organization [facility] Address [address] [place] [address] Care Team Providers Care Information Security Name Role Phone Yandel Covington PA-C Primary Care Provider [phone] Source Comments [facility],non-owned Affiliates and Associated Physician Practices is amultiple site organization consisting of ambulatory clinics and hospital sitesin [place], [place], [place] and [place]. This disclosure is being madepursuant to the Care Everywhere program and may not contain all information available regarding this patient. Last updated 18.[facility] Allergies No known active allergies Medications * [...] on file Legal Sex Male 5:33 AM [employer] TERM C[employer] SOC[employer] WORK[employer] Gender Identity Not on file Sexual Orientation Not on file Last Filed Vital Signs Vital Sign Reading Time Taken Comments Blood Pressure 130/76 07/19/2016 12:59 PM [employer] SOCIAL WORKER Pulse 94 07/19/2016 12:59 PM [employer] SOCIAL WORKER Temperature 36.6 C (97.8 F) 07/19/2016 12:59 PM [employer] TER[employer] C[employer] SOCIAL WORKER Respiratory Rate 20 07/19/2016 12:59 PM [employer] SOCIAL WORKER Oxygen Saturation 99% 07/19/2016 12:59 PM [employer] SOC[employer] WORKER Inhaled Oxygen Concentration - - Weight 97.5 kg (215 lb) 07/19/2016 12:59 PM [employer] TER[employer] SOCIAL WORKER Height 175.3 cm (5' 9) 07/19/2016 12:59 PM [employer] SOCIAL WORKER Body Mass Index 31.75 07/19/2016 12:59 PM [employer] TER[employer] C[employer] SOCIAL WORKER Plan of Treatment Health Maintenance Due Date [...] age to complete this topic Care Teams Information Security Relationship Specialty Start Date End Date Yandel Covington PA-C PCP - General 07/19/16
--- OUTSIDE RECORDS SUMMARY | 2024-12-12 13:24 | XMS_ITS | Encounter Summary ---
Author Organization [facility] Address [address] [place] [address] Care Team Providers Care Division [address] Supervisor Name Role Phone Buster Hylton MD Primary Care Provider [phone] Encounter Details Date Type Department Care Team (Late st Contact Info) Description 07/07/2024 Orders Only [facility] Health Information Management [address] [place] [address] Joao Curiel MD [address] [place] [address] Social History Tobacco Use Types Packs/Day Years Used Date Smoking Tobacco: Some Days Cigarettes Sex and Gender Information Value Date Recorded Sex Assigned at Not on file Legal Sex Male 3:03 AM [employer] Gender Identity Not on file Sexual Orientation [...] on filedocumented in this encounter Care Teams Division Road Supervisor Relationship Specialty Start Date End Date Buster Hylton MD PCP - General 10/18/17 documented as of this encounter
--- NOTE | 2024-12-12 13:53 | ED.EPISTAXIS ---
HPI - Epistaxis General Chief complaint: Epistaxis Stated complaint: ON PLAVIX NOSEBLEED Time Seen by Provider: 12/12/24 12:51 Source: patient Mode of arrival: ambulatory Limitations: no limitations History of Present Illness HPI Narrative: This is a 49 year old male that presents to the ER for epistaxis. Ongoing over the last couple of hours. Reports recently switching from Brilinta to Plavix. He has been dealing with some sinus issues. Reports bleeding from the right nare. Related Data Home Medications ?Medication ?Instructions ?Recorded ?Confirmed ?Last Taken ?Type cholecalciferol (vitamin D3) 125 125 mcg PO DAILY 06/04/24 07/28/24 07/28/24 History mcg (5,000 unit) capsule vitamin B complex 1 tablet PO DAILY 06/04/24 07/28/24 07/28/24 History metoprolol succinate 25 mg 25 mg PO QAM 07/20/24 07/31/24 07/31/24 History tablet,extended release 24 hr coenzyme Q10 100 mg capsule (Co 100 mg PO DAILY 07/28/24 07/28/24 07/28/24 History Q-10) Allergies Allergy/AdvReac Type Severity Reaction Status Date / Time No Known Allergies Allergy Verified 12/12/24 12:03 Review of Systems Review of Systems: All systems reviewed & are unremarkable except as noted in HPI and below PMFSH Past Medical History Medical History (Updated 12/12/24 @ 13:59 by Alexandra Garcia PA-C) Hyperlipidemia Coronary artery disease Leukocytosis Insomnia Sexual dysfunction Depression with anxiety Cyst of brain Headache, migraine Surgical History Surgical History History of skin surgery radha removed chest area Family History Family History Mother Aneurysm Fibromyalgia Migraine Other Diabetes mellitus Family history of coronary artery disease Family history of malignant neoplasm Heart disease Hypertension Social History Social History Smoking packs per day: 0.5 Smoking cigarettes per day: 10.0 Years smoked: 20 Smoking pack-years: 10.00 Smoking status: Current every day smoker Tobacco type: cigarettes Alcohol intake: former Drinks per week: 42 Substance use: never Substance use type: does not use Do You Feel Safe in your Home?: Yes Lack of Transportation: No Lack of Food: Never True Current Housing: I Have Housing Concerned About Future Housing: No Difficulty Paying Gas/Electric Bills: No Difficulty Paying for Meds: No Currently Unemployed: No Education: Trade/Vocational Certificate Difficulty w/ Childcare or Family Care: No Living arrangements: with family Spiritual care concerns: No Exam Narrative: GENERAL: Well-appearing, well-nourished, and in no acute distress. HEAD: Normocephalic, atraumatic. EYES: EOMI. ENT: Nares clear, no current epistaxis, small amount of dried blood in the right nare. Mucous membranes moist. NECK: Supple. No adenopathy or masses. CHEST: No respiratory distress. HEART: Regular rate EXTREMITIES: Normal range of motion. No edema. SKIN: Warm, dry, no rash. NEURO: No focal deficits. Alert and oriented x3. PSYCH: Normal mood and affect Course Course Emergency Course: Bleeding has stopped after Afrin applied to the near. He wishes to avoid rhino rocket Vital Signs Vital signs: Vital Signs Temperature 98 F 12/12/24 12:09 Pulse Rate 103 H 12/12/24 12:09 Respiratory Rate 20 12/12/24 12:09 Blood Pressure 163/97 H 12/12/24 12:09 Pulse Oximetry 100 12/12/24 12:09 Temperature 98 F 12/12/24 12:09 Pulse Rate 103 H 12/12/24 12:09 Respiratory Rate 20 12/12/24 12:09 Blood Pressure 163/97 H 12/12/24 12:09 Pulse Oximetry 100 12/12/24 12:09 Procedures Epistaxis Control right: Epistaxis Control Date: 12/12/24 Epistaxis Control Time: 15:18 Nose Prepped With: oxymetazoline Direct Inspection: unable to visualize Cautery Used: none Device Inserted: other (Contin ball with Afrin) Patient Tolerated Procedure: well and no complications MDM - Epistaxis MDM Narrative Medical decision making narrative: Patient presents to the emergency department for epistaxis. This was controlled with Afrin on a sterile cotton ball. He wishes to avoid rhino rocket at this time. Will be given follow-up with ENT if needed. He was given warnings to return to the ER Differential Diagnosis Differential diagnosis: Likely anterior epistaxis and posterior epistaxis Critical Care Time Critical Care Time Critical Care Time: No Discharge Plan Discharge Clinical Impression: Epistaxis Patient Disposition: Home Condition: Stable Instructions: Nosebleed (ED) Additional Instructions: Return to the emergency department if you experience fever, nosebleed you are unable to control, or any other symptoms that are concerning to you. Follow up with ENT if needed Patient Language: Romanian Prescriptions: No Action metoprolol succinate 25 mg tablet extended release 24 hr 25 mg PO QAM bupropion HCl 300 mg tablet extended release 24 hr 300 mg PO QAM Qty: 90 1RF anastrozole 1 mg tablet 1 mg PO WEEKLY Qty: 4 5RF Rx Instructions: Take 1 tablet by mouth every week on Fridays atorvastatin 80 mg tablet 80 mg PO DAILY Qty: 90 1RF vitamin B complex Tablet 1 tablet PO DAILY cholecalciferol (vitamin D3) 125 mcg (5,000 unit) Capsule 125 mcg PO DAILY Brilinta 90 mg Tablet 90 mg PO Q12HR 30 Days Qty: 60 11RF aspirin 81 mg Tablet,Delayed Release (Dr/Ec) 81 mg PO QAM Qty: 30 1RF coenzyme Q10 [Co Q-10] 100 mg capsule 100 mg PO DAILY sildenafil (pulm.hypertension) 20 mg tablet 60 - 80 mg PO Q36H PRN (Reason: sexual activity) Qty: 60 0RF Rx Instructions: administer doses at least 4-6 hours apart testosterone cypionate [Depo-Testosterone] 200 mg/mL oil 100 mg subcut .COMPLEX Qty: 8 5RF Rx Instructions: 100 mg subcutaneously Wednesday & Wednesday; Follow-up/Referrals: Jeanie Herrera MD [Physician] - Buster Hylton MD [Primary Care Provider] -
== END 2024-12-12 14:59 | disposition home or self-care (01) ==
PROVIDERS: Emergency Provider Physician Assistant; PCP Family Medicine
DX: R04.0 Epistaxis (principal); F17.210 Nicotine dependence, cigarettes, uncomplicated; Z79.02 Long term (current) use of antithrombotics/antiplatelets
CPT/HCPCS: 30901; 99283; A9270

== ENCOUNTER 2025-02-02 15:01 | Outpatient (RCR) | payer OTHER, SELFPAY | END 2025-04-13 09:34 | disposition home or self-care (01) | LOC: ANHCPREHAB 15:01 | PROVIDERS: PCP Family Medicine; Visit Provider Internal Medicine Cardiovascular Disease | DX: Z51.89 Encounter for other specified aftercare (principal); Z98.61 Coronary angioplasty status | CPT/HCPCS: 93798 ==

== ENCOUNTER → 2025-02-05 12:04 | Outpatient (REF) | payer OTHER, SELFPAY ==
--- NOTE | 2025-02-05 12:04 | S_PTH ---
PATIENT: Mika Villeda LOC: [facility] U#:[id number] AGE/SX: 50/M ROOM: RE02/05/[address]: Bhavesh Cotton MD : 1975 BED: DIS: SPEC #: [id number] RECD: 02/05/25 12:45 STATUS: JULIETTE REQ #: [id number] JAQUELIN: 02/05/25 12:[address]: Bhavesh Cotton DEPT: [facility] Surgical RECD BY: Radha Jennings ENTERED: 02/05/25 12:46 SP TYPE: Surgical OTHR DR: Buster Hylton MD Tissues: A - Mass B - Mass C - Mass Procedures: Hematoxylin and Eosin Stain Gross and Microscopic Level 3
== END ==
LOC: ANHLAB 12:04
PROVIDERS: PCP Family Medicine; Visit Provider Plastic Surgery
DX: M60.231 Foreign body granuloma of soft tissue, not elsewhere classified, right forearm (principal); D23.62 Other benign neoplasm of skin of left upper limb, including shoulder
CPT/HCPCS: 88304